=== PATIENT | male | born 1935 | race Caucasian/White ===

== ENCOUNTER 2016-07-09 12:51 | Inpatient (IN) ==
--- NOTE | 2016-07-09 13:01 | Emergency Department Note ---
Disposition Clinical Impression: Hypokalemia, Metabolic encephalopathy, Renal insufficiency, Dehydration Disposition: Admitted As Inpatient Condition: Fair Time of Disposition: 14:24 Altered Mental Status HPI - General Chief Complaint: ED Altered Mental Status Stated Complaint: AMS Time Seen by Provider: 07/09/16 12:59 Source: patient, family (), EMS Mode of arrival: EMS Limitations: altered mental status Nursing Notes Reviewed: Yes Vital Signs Reviewed: Yes - History of Present Illness HPI Narrative: 80-year-old male history of orthostatic hypotension, end-stage renal disease on daily peritoneal dialysis presents to the ED via EMS for confusion and weakness. He is a poor historian and history is obtained by and daughter. Patient has reportedly been increasingly more weak over the past several days with confusion. Example was given, earlier today while laying in his bed he yelled out "get me out of this truck". Reportedly has been coughing with more sputum production. Denies any fever, chills, weight changes, chest pain, shortness of breath, abdominal pain. He continues to make some urine, last was 2 days ago. He has been bedridden over the past 2 months. He was last hospitalized in February from a fall. He gets nightly peritoneal dialysis assisted by his currently 7.5 L at night and an additional 2.5 during the afternoon. Prior to this week it was decreased from 10 L at night and 2.5 during the afternoon due to possible dehydration and withdrawing too much fluid. Dr. Luther is his mental health coordinator from [facility] and has frequent house visits. Last house visit 3 weeks ago. His nurse comes in every 2 weeks is is scheduled to come this upcoming Monday. He gets physical therapy but lately has been unable to participate. complaint: confusion, weakness - Related Data Home Medications Medication Instructions Recorded Confirmed Allopurinol [Zyloprim 100 MG] 100 mg PO QAM 07/09/16 07/09/16 Aspirin Enteric Coated [Aspirin EC] 81 mg PO QPM 07/09/16 07/09/16 Cinacalcet HCl [Sensipar] 90 mg PO BID 07/09/16 07/09/16 Droxidopa [Northera] 300 mg PO TID 07/09/16 07/09/16 Fludrocortisone Acetate [Florinef] 0.1 mg PO BID 07/09/16 07/09/16 Loratadine [Claritin] 10 mg PO DAILY 07/09/16 07/09/16 Midodrine HCl 10 mg PO QID 07/09/16 07/09/16 Multivitamin [Multi-Day Vitamins] 1 each PO QPM 07/09/16 07/09/16 Polyethylene Glycol 3350 17 gm PO QAM 07/09/16 07/09/16 [Smoothlax] Sennosides/Docusate Sodium [Senna 1 each PO QPM 07/09/16 07/09/16 Plus] Sevelamer [Renvela] 800 mg PO TIDWM 07/09/16 07/09/16 Tamsulosin [Flomax] 0.4 mg PO QPM 07/09/16 07/09/16 Allergies Allergy/AdvReac Type Severity Reaction Status Date / Time No Known Allergies Allergy Verified 07/09/16 13:04 All systems ED: reviewed and negative except as stated. Constitutional: Reports: weakness. Denies: fever, chills ENT ED: Denies: congestion Cardiovascular: Denies: chest pain Respiratory: Reports: cough. Denies: dyspnea, wheezes Gastrointestinal: Denies: abdominal pain, nausea, vomiting, diarrhea Genitourinary: Denies: urgency, dysuria Musculoskeletal: Denies: back pain, neck pain Integumentary: Denies: rash, abrasion Neurological: Denies: headache Past Medical History - Past Medical History Attestation: Yes The following information was validated with the patient. Source: patient, obtained from family Physical Exam - General Limitations: altered mental status General appearance: in no apparent distress, other (lucid) - Head Head exam: atraumatic, normocephalic, normal inspection - Eye Eye exam: Present: normal appearance, PERRL, EOMI. Absent: scleral icterus - ENT ENT exam: normal exam, normal oropharynx, mucous membranes dry - Neck Neck exam: Present: normal inspection, full ROM, trachea midline. Absent: tenderness - Chest Chest inspection: Present: normal inspection, symmetric chest wall rise - Respiratory Respiratory exam: Present: normal lung sounds bilaterally. Absent: respiratory distress, wheezes - Cardiovascular Cardiovascular exam: Present: regular rate, normal rhythm, normal heart sounds. Absent: systolic murmur, diastolic murmur - Abdominal Exam Abdominal exam: Present: soft, Non-Tender, normal bowel sounds, other ( Peritoneal dialysis catheter and left lower quadrant, no surrounding erythema, induration or fluctuance). Absent: tenderness, distention, guarding, rebound, rigidity Course Course Narrative: 80-year-old male history of atrial fibrillation in end-stage renal disease on peritoneal dialysis presents the ED for altered mental status and generalized weakness. Denies any fevers at home. Denies any falls. He has been bedbound for 2 months. Appears in no apparent distress. He is overall weak appearing. He is alert and oriented person place and time. Also membranes are dry. Clinically he appears dehydrated. Heart is irregularly irregular. Lungs are clear to auscultation bilaterally. Abdomen is soft nontender nondistended. His dialysis site does not appear infected no erythema or induration. Moves all 4 extremities without difficulty. No focal neural deficits. Sepsis workup initiated. CT head and CXR ordered. 500 mL bolus ordered. - Reevaluation(s) Reevaluation #1: Hemoglobin is stable at 8.7. Potassium is low at 2, Magnesium is normal. Creatinine 7.8 elevated from prior several months ago. Clinically appears dehydrated. EKG shows atrial fibrillation with Q waves in anteroseptal leads consistent to prior EKG performed 02/20/2012. His troponin is elevated up to 1.17. He does not endorse any chest pain. Likely demand ischemia. Will replete his potassium with 40 mEq PO and 40 mEq potassium rider IV. Time: 14:01 Reevaluation #2: Chest x-ray does not reveal any pulmonary process to suggest infection, findings likely is due to atelectasis from low inspiratory effort. CT of the head does not reveal any intracranial abnormality. Finding of bilateral mastoiditis on CT of the head. Clinically he does not have mastoiditis as he does not have any tenderness along the mastoid or fevers. Will admit patient for hypokalemia, metabolic encephalopathy, renal insufficiency, dehydration. Time: 14:45 - Consultations Consultation #1: Spoke with on-call hospitalist ester Hernandez to admit for metabolic encephalopathy, hypokalemia, renal insufficiency, dehydration. No further orders at this time Time: 14:23 Vital Signs Temperature 97.4 F L 07/09/16 12:57 Pulse Rate 87 07/09/16 12:57 Respiratory Rate 16 07/09/16 12:57 Blood Pressure 122/60 07/09/16 12:57 O2 Sat by Pulse Oximetry 95 07/09/16 12:57 Temperature 97.4 F L 07/09/16 12:57 Pulse Rate 103 07/09/16 14:34 Respiratory Rate 18 07/09/16 14:58 Blood Pressure 121/57 07/09/16 14:58 O2 Sat by Pulse Oximetry 96 07/09/16 14:34 Oxygen Delivery Oxygen Delivery Room Air Altered Mental Status - Medical Records Medical records reviewed: Yes I reviewed the patient's medical records. - Lab Data Lab results reviewed: Yes I reviewed the patient's lab results. Result diagrams: 07/09/16 13:19 07/09/16 13:19 Lab Results 07/09/16 07/09/16 07/09/16 Range/Units 13:19 13:19 13:19 WBC 10.4 (4.3-11.1) K/mcL RBC 2.79 L (4.19-5.50) M/mcL Hgb 8.7 L (12.9-16.9) g/dL Hct 25.6 L (37.5-50.1) % MCV 91.8 (83.0-100.0) fL MCH 31.2 (28.0-33.3) pg MCHC 34.0 (31.6-35.5) g/dL RDW 15.4 H (11.5-14.5) % Plt Count 337 (140-400) K/mcL MPV 9.6 (9.4-12.4) fL Immature Gran % 0.8 (0-4) % Seg Neutrophils % 72.1 % Lymphocytes % 14.6 % Monocytes % 9.6 % Eosinophils % 2.4 % Basophils % 0.5 % Neutrophils # 7.5 (1.6-8.9) K/mcL Lymphocytes # 1.5 (0.6-4.6) K/mcL Monocytes # 1.0 (0.0-1.3) K/mcL Eosinophils # 0.3 (0.0-0.6) K/mcL Basophils # 0.1 (0.0-0.2) K/mcL Immature Plt Fraction 2.3 (1.1-6.1) % PT 12.0 (9.4-12.1) Seconds INR 1.1 APTT 24.5 L (26.0-36.0) Seconds Sodium 132 L (136-145) mEq/L Potassium 2.0 L* (3.5-4.5) mEq/L Chloride 90 L (98-109) mEq/L Carbon Dioxide 28 (19-29) mEq/L BUN 43 H (8-26) mg/dL Creatinine 7.85 H (0.72-1.25) mg/dL Est GFR ( Amer) 8 L (> 60) Est GFR (Non-Af Amer) 7 L (> 60) BUN/Creatinine Ratio 5 L (6-26) Glucose 115 H (70-99) mg/dL Calculated Osmolality 286 (280-300) Lactic Acid (0.5-2.2) mmol/L Calcium 11.8 H (8.6-10.8) mg/dL Phosphorus 5.2 H (2.3-4.7) mg/dL Magnesium 1.8 (1.6-2.6) mg/dL Total Bilirubin 0.4 (0.2-1.2) mg/dL Direct Bilirubin 0.2 (0.0-0.5) mg/dL Indirect Bilirubin 0.2 (0.0-1.2) mg/dL AST 16 (5-34) Units/L ALT 16 (0-55) Units/L Alkaline Phosphatase 110 (38-126) Units/L Ammonia (18-72) mcmol/L Troponin I (0-0.03) ng/mL B-Natriuretic Peptide (0-100) pg/mL Serum Total Protein 5.3 L (6.0-8.3) g/dL Albumin 2.0 L (3.5-5.0) g/dL Globulin 3.3 (2.4-3.5) g/dL Albumin/Globulin Ratio 0.6 L (1.1-2.2) Urine Color (Yellow) Urine Clarity (Clear) Urine pH (5.0-8.0) pH Units Ur Specific [place] (1.010-1.025) Urine Protein (Neg-Trace) mg/dL Urine Glucose (UA) (Normal) mg/dL Urine Ketones (Negative) mg/dL Urine Blood (Negative) Urine Nitrite (Negative) Urine Bilirubin (Negative) Urine Urobilinogen (Normal) mg/dL Ur Leukocyte Esterase (Negative) Urine Microscopic RBC (0-3) per hpf Urine Microscopic WBC (0-3) per hpf Ur Squamous Epith Cells (None-Few) per lpf Urine Bacteria (None-Few) per hpf Hyaline Casts Urine Yeast Ur Culture Indicated? (NO) 07/09/16 07/09/16 07/09/16 Range/Units 13:19 13:19 13:19 WBC (4.3-11.1) K/mcL RBC (4.19-5.50) M/mcL Hgb (12.9-16.9) g/dL Hct (37.5-50.1) % MCV (83.0-100.0) fL MCH (28.0-33.3) pg MCHC (31.6-35.5) g/dL RDW (11.5-14.5) % Plt Count (140-400) K/mcL MPV (9.4-12.4) fL Immature Gran % (0-4) % Seg Neutrophils % % Lymphocytes % % Monocytes % % Eosinophils % % Basophils % % Neutrophils # (1.6-8.9) K/mcL Lymphocytes # (0.6-4.6) K/mcL Monocytes # (0.0-1.3) K/mcL Eosinophils # (0.0-0.6) K/mcL Basophils # (0.0-0.2) K/mcL Immature Plt Fraction (1.1-6.1) % PT (9.4-12.1) Seconds INR APTT (26.0-36.0) Seconds Sodium (136-145) mEq/L Potassium (3.5-4.5) mEq/L Chloride (98-109) mEq/L Carbon Dioxide (19-29) mEq/L BUN (8-26) mg/dL Creatinine (0.72-1.25) mg/dL Est GFR ( Amer) (> 60) Est GFR (Non-Af Amer) (> 60) BUN/Creatinine Ratio (6-26) Glucose (70-99) mg/dL Calculated Osmolality (280-300) Lactic Acid 1.4 (0.5-2.2) mmol/L Calcium (8.6-10.8) mg/dL Phosphorus (2.3-4.7) mg/dL Magnesium (1.6-2.6) mg/dL Total Bilirubin (0.2-1.2) mg/dL Direct Bilirubin (0.0-0.5) mg/dL Indirect Bilirubin (0.0-1.2) mg/dL AST (5-34) Units/L ALT (0-55) Units/L Alkaline Phosphatase (38-126) Units/L Ammonia (18-72) mcmol/L Troponin I 1.17 H* (0-0.03) ng/mL B-Natriuretic Peptide 373 H (0-100) pg/mL Serum Total Protein (6.0-8.3) g/dL Albumin (3.5-5.0) g/dL Globulin (2.4-3.5) g/dL Albumin/Globulin Ratio (1.1-2.2) Urine Color (Yellow) Urine Clarity (Clear) Urine pH (5.0-8.0) pH Units Ur Specific [place] (1.010-1.025) Urine Protein (Neg-Trace) mg/dL Urine Glucose (UA) (Normal) mg/dL Urine Ketones (Negative) mg/dL Urine Blood (Negative) Urine Nitrite (Negative) Urine Bilirubin (Negative) Urine Urobilinogen (Normal) mg/dL Ur Leukocyte Esterase (Negative) Urine Microscopic RBC (0-3) per hpf Urine Microscopic WBC (0-3) per hpf Ur Squamous Epith Cells (None-Few) per lpf Urine Bacteria (None-Few) per hpf Hyaline Casts Urine Yeast Ur Culture Indicated? (NO) 07/09/16 07/09/16 Range/Units 13:19 14:00 WBC (4.3-11.1) K/mcL RBC (4.19-5.50) M/mcL Hgb (12.9-16.9) g/dL Hct (37.5-50.1) % MCV (83.0-100.0) fL MCH (28.0-33.3) pg MCHC (31.6-35.5) g/dL RDW (11.5-14.5) % Plt Count (140-400) K/mcL MPV (9.4-12.4) fL Immature Gran % (0-4) % Seg Neutrophils % % Lymphocytes % % Monocytes % % Eosinophils % % Basophils % % Neutrophils # (1.6-8.9) K/mcL Lymphocytes # (0.6-4.6) K/mcL Monocytes # (0.0-1.3) K/mcL Eosinophils # (0.0-0.6) K/mcL Basophils # (0.0-0.2) K/mcL Immature Plt Fraction (1.1-6.1) % PT (9.4-12.1) Seconds INR APTT (26.0-36.0) Seconds Sodium (136-145) mEq/L Potassium (3.5-4.5) mEq/L Chloride (98-109) mEq/L Carbon Dioxide (19-29) mEq/L BUN (8-26) mg/dL Creatinine (0.72-1.25) mg/dL Est GFR ( Amer) (> 60) Est GFR (Non-Af Amer) (> 60) BUN/Creatinine Ratio (6-26) Glucose (70-99) mg/dL Calculated Osmolality (280-300) Lactic Acid (0.5-2.2) mmol/L Calcium (8.6-10.8) mg/dL Phosphorus (2.3-4.7) mg/dL Magnesium (1.6-2.6) mg/dL Total Bilirubin (0.2-1.2) mg/dL Direct Bilirubin (0.0-0.5) mg/dL Indirect Bilirubin (0.0-1.2) mg/dL AST (5-34) Units/L ALT (0-55) Units/L Alkaline Phosphatase (38-126) Units/L Ammonia 15 L (18-72) mcmol/L Troponin I (0-0.03) ng/mL B-Natriuretic Peptide (0-100) pg/mL Serum Total Protein (6.0-8.3) g/dL Albumin (3.5-5.0) g/dL Globulin (2.4-3.5) g/dL Albumin/Globulin Ratio (1.1-2.2) Urine Color Red A (Yellow) Urine Clarity Cloudy A (Clear) Urine pH 5.5 (5.0-8.0) pH Units Ur Specific [place] 1.021 (1.010-1.025) Urine Protein 30 H (Neg-Trace) mg/dL Urine Glucose (UA) Normal (Normal) mg/dL Urine Ketones Negative (Negative) mg/dL Urine Blood Negative (Negative) Urine Nitrite Negative (Negative) Urine Bilirubin Small H (Negative) Urine Urobilinogen Normal (Normal) mg/dL Ur Leukocyte Esterase Moderate H (Negative) Urine Microscopic RBC 0-3 (0-3) per hpf Urine Microscopic WBC 5-15 H (0-3) per hpf Ur Squamous Epith Cells Few (None-Few) per lpf Urine Bacteria Moderate H (None-Few) per hpf Hyaline Casts Test Not Performed Urine Yeast Test Not Performed Ur Culture Indicated? YES A (NO) - Radiology Data Radiology results reviewed: Yes I reviewed the patient's radiology results. Chest X-Ray 07/09/16 13:03 IMPRESSION: Low lung volumes with bibasilar opacities, likely atelectasis. D/ / Sun Guerra MD / Sun Guerra MD Interpreting Provider: Sun Guerra MD Head CT 07/09/16 13:04 IMPRESSION: 1. No acute intracranial abnormality. 2. Diffuse cerebral atrophy with chronic small vessel ischemic disease. 3. Bilateral mastoiditis. D/ / Renaldo Saxena MD / Renaldo Saxena MD Interpreting Provider: Renaldo Saxena MD - EKG Data EKG attestation: Yes I reviewed and interpreted this EKG. EKG results narrative: EKG performed 1342 atrial fibrillation 77 bpm, Q waves seen in the inferior and anteroseptal leads. No ST elevations or depressions, no T-wave inversions. Compared to old EKG performed 02/20/2012 shows consistent findings his bradycardia 49 bpm with AV block Q waves are consistent.. No acute ischemic changes. TPA Checklist - LKW: 3-4.5 hrs Add. Contraindications Patient/family understanding: The patient/family members have been counseled and understood the risk, benefit , and alternatives of treatment. Critical Care Time Critical Care Time: Yes Total Critical Care Time: 30 Attestation: The patient presented generally weak. He was markedly hypokalemic requiring parenteral supplementation and admission to a telemetry unit Attestation Statement - Attestation Attestation: I examined this patient and my medical decision-making was reviewed with the CERTIFIED PEDORTHOTIST/PA/Advanced Practice Nurse/Resident Physician. I agree with the documented findings, disposition and treatment plan as described except to the extent set forth below. Face to face time provided Patient presents with generalized weakness over the past several days. He presents via EMS from home. He has a history of peritoneal dialysis. He appears dehydrated on exam. He denies localized pain. He is alert and lucid appears generally weak
[2016-07-09] MEDS ORDERED: 0.9 % Sodium Chloride 500 ML IVC ONE (13:16)
[2016-07-09 13:31] LABS: Basophils # 0.1 K/mcL (0.0-0.2); Basophils % 0.5 %; Eosinophils # 0.3 K/mcL (0.0-0.6); Eosinophils % 2.4 %; Hematocrit 25.6 % (37.5-50.1); Hemoglobin 8.7 g/dL (12.9-16.9); Immature Granulocytes % 0.8 % (0-4); Immature Platelets 2.3 % (1.1-6.1); Lymphocytes # 1.5 K/mcL (0.6-4.6); Lymphocytes % 14.6 %; Mean Corpuscular Hemoglobin 31.2 pg (28.0-33.3); Mean Corpuscular Volume 91.8 fL (83.0-100.0); Mean Platelet Volume 9.6 fL (9.4-12.4); Monocytes % 9.6 %; Neutrophils # 7.5 K/mcL (1.6-8.9); Platelet Count 337 K/mcL (140-400); Red Blood Count 2.79 M/mcL (4.19-5.50); Red Cell Distribution Width 15.4 % (11.5-14.5); Segmented Neutrophils % 72.1 %
[2016-07-09 13:43] LABS: INR 1.1
[2016-07-09 13:44] LABS: Albumin/Globulin Ratio 0.6 (1.1-2.2); Bilirubin,Direct 0.2 mg/dL (0.0-0.5); Bilirubin,Indirect 0.2 mg/dL (0.0-1.2); Bilirubin,Total 0.4 mg/dL (0.2-1.2); Calcium 11.8 mg/dL (8.6-10.8); Globulin 3.3 g/dL (2.4-3.5); Magnesium 1.8 mg/dL (1.6-2.6); Phosphorous 5.2 mg/dL (2.3-4.7); Total Protein 5.3 g/dL (6.0-8.3)
[2016-07-09 13:46] LABS: Activated Partial Thrombo Time 24.5 Seconds (26.0-36.0)
[2016-07-09] MEDS ORDERED: Potassium Chloride 40 MEQ, Lidocaine 1% 2 ML in D5% in Water 500 ML IVPB ONE (13:54)
[2016-07-09 14:25] LABS: Bilirubin,Urine Small (Negative); Blood,Urine Negative (Negative); Clarity,Urine Cloudy (Clear); Color,Urine Red (Yellow); Glucose,Urine (UA) Normal (Normal); Ketones,Urine Negative (Negative); Leukocyte Esterase,Urine Moderate (Negative); Nitrite,Urine Negative (Negative); PH,Urine 5.5 pH Units (5.0-8.0); Protein,Urine 30 mg/dL (Neg-Trace); Specific Gravity,Urine 1.021 (1.010-1.025); Urobilinogen,Urine Normal (Normal)
[2016-07-09 14:38] LABS: Squamous Epithelial Cell,Urine Few per lpf (None-Few)
[2016-07-09 14:42] LABS: RBC,Urine 0-3 per hpf (0-3)
[2016-07-09 14:43] LABS: Bacteria,Urine Moderate per hpf (None-Few)
[2016-07-09] MEDS ORDERED: Naloxone 0.4 MG/ML INJ IVP PRN (18:54)
[2016-07-09] MEDS ORDERED: Acetaminophen 325 MG TABLET PO PRN (18:54)
[2016-07-09] MEDS ORDERED: 0.9 % Sodium Chloride 1,000 ML IVC SCH (19:00)
[2016-07-09] MEDS ORDERED: Potassium Effervescent 25 MEQ TABLET.EFF GTUBE ONE (19:40)
--- NOTE | 2016-07-09 19:43 | Internal Med History&Physical ---
Date of Encounter: 07/09/16 Time of Encounter: 17:00 Assessment and Plan (1) Hypokalemia Current visit: Yes Status: Acute 1 potassium is 2.0 on presentation. No arrhythmias noted. Continuous cardiac monitoring. 2 oral potassium as well as K riders 40 mEq 3 continue to monitor potassium level (2) Dehydration Current visit: Yes Status: Acute 1 patient has been receiving peritoneal dialysis increasing confusion tongue is fairrowed mucous membranes are tacky BUN 43. Patient given IV fluids 2 monitor replace electrolytes 3. Intake and output (3) End stage chronic kidney disease Current visit: Yes Status: Acute 1 receiving peritoneal dialysis. Consulted Dr. Perez who will manage 2 monitor intake and output 3 avoid nephrotoxins (4) UTI (urinary tract infection) Current visit: Yes Status: Acute 1 patient has been expressing increasing confusion. moderate bacteria and leukocyte esterase. We will obtain urine culture as well as blood cultures 2. Rocephin adjust to sensitivity Qualifiers: Urinary tract infection type: acute cystitis Hematuria presence: without hematuria Qualified Code(s): N30.00 - Acute cystitis without hematuria (5) Metabolic encephalopathy Current visit: Yes Status: Acute 1 patient has been experiencing increase in confusion. CT of head with no acute abnormalities will obtain blood cultures as well as urine cultures to rule out infectious process patient is dehydrated continue with IV fluids and monitoring place electrolytes avoid sedating medications (6) DVT prophylaxis Current visit: Yes Status: Acute SCDs Internal Medicine - H&P: HPI Chief complaint: weakness Admitted From: Emergency Dept Plans for Post Hospital Care: Home History of present illness: Mr. Mueller is a 80 year old male past medical history of atrial fibrillation orthostatic hypertension COPD end-stage renal disease on daily peritoneal dialysis. The patient is confused information obtained from who is at bedside and medical records. The patient has been increasingly weak and confused over the past few days. He has a history of being bedridden and is receiving peritoneal dialysis assisted by his is currently receiving 7.5 L at night and initial 2.5 during the afternoon . He is being followed by Dr. Alonzo molder vacuum from [facility] makes frequent house visits as well as a nurse that comes in every 2 weeks. He normally gets physical therapy but has not lately since he is unable to participate. The patient has become increasingly weaker and more confused since change in his dialysate. He has not been experiencing any fevers chills nausea vomiting diarrhea chest pain or shortness of breath. He does have a cough withsputum production which she states is clear. He was brought to the ER for the above complaints. Currently her records patient's lab work revealed potassium of 2 cranial 7.85 BUN 43 magnesium is 1.8 troponin 1.17 BNP 373 TIBC 10.4 hemoglobin 8.7. Chest x-ray revealed some atelectasis urine did show leuk esterase. CT of head no acute intracranial abdominal disease. EKG with atrial fibrillation. Patient did appear dehydrated and weak he has been admitted for further workup and evaluation. Presently patient is alert and oriented to name and place he follows simple commands. Nursing staff reports the patient failed bedside swallow. Repeated bedside swallow patient experienced coughing and sputtering. We will make patient nothing by mouth will be seen by speech therapy in a.m. Did speak to Dr. Perez concerning peritoneal dialysis will place order. Patient is receiving K rider, given oral potassium Past Med Surg Social Fam HX - Past Medical History Medical history: hypertension, renal disease Psychiatric history: no psych history - Social History Smoking Status: Former smoker Smokeless Tobacco Status: No Alcohol use: none Drug use: none Internal Medicine - H&P: Meds Allopurinol [Zyloprim 100 MG] 100 mg PO QAM 07/09/16 [History] Aspirin Enteric Coated [Aspirin EC] 81 mg PO QPM 07/09/16 [History] Cinacalcet HCl [Sensipar] 90 mg PO BID 07/09/16 [History] Droxidopa [Northera] 300 mg PO TID 07/09/16 [History] Fludrocortisone Acetate [Florinef] 0.1 mg PO BID 07/09/16 [History] Loratadine [Claritin] 10 mg PO DAILY 07/09/16 [History] Midodrine HCl 10 mg PO QID 07/09/16 [History] Multivitamin [Multi-Day Vitamins] 1 each PO QPM 07/09/16 [History] Polyethylene Glycol 3350 [Smoothlax] 17 gm PO QAM 07/09/16 [History] Sennosides/Docusate Sodium [Senna Plus] 1 each PO QPM 07/09/16 [History] Sevelamer [Renvela] 800 mg PO TIDWM 07/09/16 [History] Tamsulosin [Flomax] 0.4 mg PO QPM 07/09/16 [History] Allergies No Known Allergies Allergy (Verified 07/09/16 13:04) ROS unobtainable: due to mental status All Systems PM: A 10-system review of systems was performed and is negative for pertinent findings except as documented above in the HPI. - Constitutional Vitals: Temp Pulse Resp BP Pulse Ox 98.6 F 97 14 128/53 99 07/09/16 15:00 07/09/16 15:00 07/09/16 15:00 07/09/16 15:00 07/09/16 17:12 General appearance: Present: A&O X 2, no acute distress - Head Head exam: Present: atraumatic, normocephalic - Neck Neck exam general surgery: Present: supple, trachea midline. Absent: lymphadenopathy - Respiratory Respiratory exam: Present: CTAB. Absent: accessory muscle use, rales, rhonchi, wheezes - Cardiovascular Cardiovascular exam: Present: irregular rhythm, +S1, +S2. Absent: diastolic murmur, gallop, rubs, systolic murmur - GI/Abdominal GI/Abdominal exam: Present: normal bowel sounds, soft, no peritoneal signs. Absent: distended, tenderness - Extremities Exam Extremities exam: Present: warm, radial pulses palpable and symetrical. Absent : calf tenderness, cyanotic, pedal edema - Neurological Exam Neurological exam: Present: CN II-XII intact, no focal deficits. Absent: pronater drift, facial droop, speech deficit - Skin Skin exam: Present: dry, intact Internal Med - H&P Results - Labs CBC & Chem 7: 07/09/16 13:19 07/09/16 13:19 - EKG Data Prior EKG available for review: yes When compared to previous EKG: there is no significant change EKG comments: 07/09/16 20:02 afib - Diagnostic Studies Other Images Additional comments: Chest X-Ray 07/09/16 13:03 IMPRESSION: Low lung volumes with bibasilar opacities, likely atelectasis. D/ / Sun Guerra MD / Sun Guerra MD Interpreting Provider: Sun Guerra MD Head CT 07/09/16 13:04 IMPRESSION: 1. No acute intracranial abnormality. 2. Diffuse cerebral atrophy with chronic small vessel ischemic disease. 3. Bilateral mastoiditis. D/ / Renaldo Saxena MD / Renaldo Saxena MD Interpreting Provider: Renaldo Saxena MD
[2016-07-09] MEDS ORDERED: Potassium Effervescent 25 MEQ TABLET.EFF PO ONE (19:52)
[2016-07-09 20:10] LABS: Magnesium 1.6 mg/dL (1.6-2.6)
[2016-07-09 20:18] LABS: Potassium 2.4 mEq/L (3.5-4.5)
[2016-07-09] MEDS ORDERED: Magnesium Sulfate 2 GM in D5% in Water 100 ML IVPB ONE (20:21)
[2016-07-09] MEDS ORDERED: *HR* Heparin 5,000 UNIT/ML VIAL IVP ONE (20:55)
[2016-07-09] MEDS ORDERED: *HR* Heparin 5,000 UNIT/ML VIAL IVP PRN ×2 (20:55)
--- NOTE | 2016-07-09 20:55 | Event Note ---
Date of Encounter: 07/09/16 Time of Encounter: 20:53 Patient has been experiencing runs of V. tach. Repeated troponin potassium like stat troponin trending downward to 1.01 potassium 2.49-1.6. Replaced my next continue with potassium replacement. EKG revealed atrial fibrillation. Did speak with Dr. Burkett who agreed with treatment and suggested adding heparin drip. We will initiate heparin drip and continue to monitor electrolytes closely
[2016-07-09] MEDS ORDERED: Perit. Dialysis with Dex 1.5 % 2,000 ML PERITONEAL SCH (21:00)
[2016-07-09] MEDS: Heparin 25,000 UNIT/500 ML D5W 25,000 UNIT/500 ML MLS IVC SCH (22:04)
[2016-07-09] MEDS: Perit. Dialysis with Dex 1.5 % 2,000 ML PERITONEAL SCH (22:58)
[2016-07-10 02:27] LABS: Basophils % 0.3 %; Eosinophils # 0.2 K/mcL (0.0-0.6); Eosinophils % 2.6 %; Hematocrit 22.6 % (37.5-50.1); Hemoglobin 7.7 g/dL (12.9-16.9); Immature Granulocytes % 0.9 % (0-4); Lymphocytes # 1.5 K/mcL (0.6-4.6); Mean Corpuscular HGB Conc 34.1 g/dL (31.6-35.5); Mean Corpuscular Hemoglobin 31.2 pg (28.0-33.3); Mean Corpuscular Volume 91.5 fL (83.0-100.0); Monocytes # 0.7 K/mcL (0.0-1.3); Monocytes % 8.1 %; Neutrophils # 6.4 K/mcL (1.6-8.9); Platelet Count 296 K/mcL (140-400); Red Blood Count 2.47 M/mcL (4.19-5.50); Red Cell Distribution Width 15.5 % (11.5-14.5); Segmented Neutrophils % 71.1 %
[2016-07-10 02:31] LABS: INR 1.2; Prothrombin Time 12.9 Seconds (9.4-12.1)
[2016-07-10 02:34] LABS: Potassium 2.6 mEq/L (3.5-4.5)
[2016-07-10 02:35] LABS: Activated Partial Thrombo Time 101.4 Seconds (26.0-36.0)
[2016-07-10] MEDS: Perit. Dialysis with Dex 1.5 % 2,000 ML PERITONEAL SCH ×4 (04:17→21:52)
[2016-07-10 07:51] LABS: Calcium 11.4 mg/dL (8.6-10.8); Phosphorous 4.5 mg/dL (2.3-4.7)
[2016-07-10 07:57] LABS: Potassium 2.5 mEq/L (3.5-4.5)
--- NOTE | 2016-07-10 08:52 | Nephrology Consult Note ---
Date of Encounter: 07/10/16 Time of Encounter: 08:10 Assessment and Plan (1) End stage chronic kidney disease Current Visit: Yes Status: Acute ESRD on PD, orders given for daily four exchanges. Hypokalemia slowly improving with repletion, Hgb 7.7 will start on Aranesp and obtain iron studies. Ca++ 11.8 , will get PTH. Continue Sensipar, avoid calcium and Vitamin D supplements. Continue to monitor. History of Present Illness - Reason for Consult end stage renal disease - History of Present Illness Mr. Mueller is a 80 year old male with ESRD on home PD administered per and followed by home visiting Ct Mri Technologist from [place]. Patient previously seen in our PD clinic. Mr. Mueller presented to ER via EMS for confusion and weakness. Other PMH-A fib, hypertension. 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 Information obtained from prior notes. Patient had progressive weakness and confusion over past several days with increased cough and sputum production. He denied fever, chills, chest pain or shortness of breath. He denies abdominal pain and still makes some urine. Recently PD was changed due to concern for possible dehydration. Labs in ER noted hypokalemic 2.0, now 2.6 with ongoing replacement, troponin 1.17 thought to be demand ischemia, serial troponins being followed. Ca 11.8, Hgb 7.7. CXR no acute process, atalectasis due to low inspiratory effort. CT of head no intracranial abnormality, incidental finding bilateral mastoiditis without any tenderness along mastoids or fever. Event note for recurrent Vtach, on Heparin drip, potassium replacement in progress. Currently alert, pleasant confused conversation. Past Med Surg Social Fam HX - Past Medical History Medical history: hypertension, renal disease Psychiatric history: no psych history - Social History Smoking Status: Former smoker Smokeless Tobacco Status: No Alcohol use: none Drug use: none Medications and Allergies Allopurinol [Zyloprim 100 MG] 100 mg PO QAM 07/09/16 [History] Aspirin Enteric Coated [Aspirin EC] 81 mg PO QPM 07/09/16 [History] Cinacalcet HCl [Sensipar] 90 mg PO BID 07/09/16 [History] Droxidopa [Northera] 300 mg PO TID 07/09/16 [History] Epoetin Aram [Epogen] 2,000 unit IJ 07/09/16 [History] Fludrocortisone Acetate [Florinef] 0.1 mg PO BID 07/09/16 [History] Loratadine [Claritin] 10 mg PO DAILY 07/09/16 [History] Midodrine HCl 10 mg PO QID 07/09/16 [History] Multivitamin [Multi-Day Vitamins] 1 each PO QPM 07/09/16 [History] Polyethylene Glycol 3350 [Smoothlax] 17 gm PO QAM 07/09/16 [History] Sennosides/Docusate Sodium [Senna Plus] 1 each PO QPM 07/09/16 [History] Sevelamer [Renvela] 800 mg PO TIDWM 07/09/16 [History] Tamsulosin [Flomax] 0.4 mg PO QPM 07/09/16 [History] Allergies No Known Allergies Allergy (Verified 07/09/16 13:04) Review of Systems ROS unobtainable: due to mental status All Systems: reviewed and no additional remarkable complaints except as stated Exam - Vital Signs Vital signs: Initial Vital Signs Temp Pulse Resp BP Pulse Ox 97.4 F L 87 16 122/60 95 07/09/16 12:57 07/09/16 12:57 07/09/16 12:57 07/09/16 12:57 07/09/16 12:57 Vital Signs - Last 8 Hours Temp Pulse Resp BP Pulse Ox 07/10/16 08:21 98.6 F 101 15 138/70 97 07/10/16 03:51 98.0 F 91 18 143/67 94 Intake and Output 07/09/16 07/10/16 07/10/16 23:59 07:59 15:59 Other: Total Peritoneal Dialysis -300 -200 Output Stool Size Moderate Stool Consistency formed Stool Characteristics Pasty Stool Color Brown Yellow Cipriano Colored # Voids 0 # Bowel Movements 1 Weight 72.5 kg 72 kg Patient Weight 07/10/16 23:59 Weight 72 kg - General Appearance General appearance: well-developed, well-nourished, appears started age EENT: mucous membranes moist Neck: no JVD, no carotid bruit Respiratory: clear Additional Comments: diminished Cardiology: no edema, irregular rhythm Gastrointestinal: normoactive bowel sounds, no tenderness, no guarding Additional Comments: PD catheter LUQ Integumentary: no rash, warm and dry Neurologic: confused Psychiatric: cooperative Results - Lab Results 07/10/16 00:59 07/10/16 06:53 Most recent lab results Calcium 11.4 mg/dL (8.6-10.8) H 07/10/16 06:53 Phosphorus 4.5 mg/dL (2.3-4.7) 07/10/16 06:53 Magnesium 2.0 mg/dL (1.6-2.6) 07/10/16 00:59 Consult Discharge Plan - Plan Referrals: Kory Gómez MD [Primary Care Provider] - (Web requested 07-09-16)
[2016-07-10] MEDS ORDERED: Darbepoetin 100 MCG/0.5 ML SYRINGE SQ SCH (09:15)
[2016-07-10] MEDS: Potassium Chloride Elixir 20 MEQ/15 ML UDC PO SCH ×2 (09:29→17:16)
[2016-07-10] MEDS: Loratadine 10 MG TABLET PO SCH (09:37)
--- NOTE | 2016-07-10 09:41 | Internal Med Progress Note ---
Date of Encounter: 07/10/16 Time of Encounter: 09:39 - Assessment and plan (1) Hypokalemia Current Visit: Yes Status: Acute Assessment and plan: due to peritoneal dialysis; will supplement with oral and IV potassium chloride ; continue Telemetry monitoring and recheck potassium in 6hours; high risk for complications; (2) Metabolic encephalopathy Current Visit: Yes Status: Acute Assessment and plan: likely due to metabolic etiology like electrolyte, acid-base imbalance due to ESRD; improving; (3) UTI (urinary tract infection) Current Visit: Yes Status: Acute Qualifiers: Urinary tract infection type: acute cystitis Hematuria presence: without hematuria Qualified Code(s): N30.00 - Acute cystitis without hematuria (4) Elevated troponin Current Visit: Yes Status: Acute Assessment and plan: could be related to volume overload and ESRD; continue Telemetry monitoring and serial Troponins; f/up Echocardiogram and Cardiology consult; (5) Atrial fibrillation Current Visit: Yes Status: Chronic Qualifiers: Atrial fibrillation type: persistent Qualified Code(s): I48.1 - Persistent atrial fibrillation (6) COPD (chronic obstructive pulmonary disease) Current Visit: Yes Status: Chronic Qualifiers: COPD type: unspecified COPD Qualified Code(s): J44.9 - Chronic obstructive pulmonary disease, unspecified (7) End stage chronic kidney disease Current Visit: Yes Status: Chronic Assessment and plan: Nephrology has been consulted and patient receiving his regular PD sessions; - Subjective Interval history: He reports feeling well. No chest or abdominal pain, no shortness of breath. Does report generalized weakness and poor appetite. Bedside swallow evaluation complete, patient is cleared for his regular diet with nectar thick liquids. - Constitutional Vitals: Temp Pulse Resp BP Pulse Ox 98.6 F 101 15 138/70 97 07/10/16 08:21 07/10/16 08:21 07/10/16 08:21 07/10/16 08:21 07/10/16 08:21 General appearance: Present: A&O X 2, answers questions appropriately - Respiratory Respiratory exam: Present: CTAB. Absent: accessory muscle use, rales, rhonchi, wheezes - Cardiovascular Cardiovascular exam: Present: RRR, +S1, +S2. Absent: diastolic murmur, gallop, rubs, systolic murmur - GI/Abdominal GI/Abdominal exam: Present: normal bowel sounds, soft (PD catheters in place in left abdomen, site clean), no peritoneal signs. Absent: distended, tenderness - Extremities Exam Extremities exam: Present: pedal edema (Trace), warm, radial pulses palpable and symetrical. Absent: calf tenderness, cyanotic - Neurological Exam Neurological exam: Present: CN II-XII intact, oriented X3, no focal deficits, strengths equal and symetr throughout (Diffusely decreased in bilateral lower extremities). Absent: pronater drift, facial droop, speech deficit Internal Medicine: Result - Labs CBC & Chem 7: 07/14/16 04:38 07/14/16 04:38 Labs: Short CBC 07/10/16 Range/Units 00:59 WBC 9.0 (4.3-11.1) K/mcL Hgb 7.7 L (12.9-16.9) g/dL Hct 22.6 L (37.5-50.1) % Plt Count 296 (140-400) K/mcL Neutrophils # 6.4 (1.6-8.9) K/mcL BMP 07/09/16 07/10/16 07/10/16 19:56 00:59 06:53 Sodium 133 L Potassium 2.4 L* 2.6 L 2.5 L* Chloride 94 L Carbon Dioxide 25 BUN 42 H Creatinine 7.63 H Glucose 91 Calcium 11.4 H Cardiac Enzymes 07/09/16 07/10/16 Range/Units 19:56 00:59 Troponin I 1.01 H* 0.97 H* (0-0.03) ng/mL - ABG Interpretation ABG results: PT/INR, D-dimer PT 12.9 Seconds (9.4-12.1) H 07/10/16 00:59 Consult Discharge Plan - Plan Referrals: Juan C Luna CNP [Advanced Practice Nurse] - 08/01/16 1:30 pm Kory Gómez MD [Primary Care Provider] - 07/20/16 9:40 am (Web requested )
--- NOTE | 2016-07-10 11:42 | Cardiology Consult Note ---
Date of Encounter: 07/10/16 Time of Encounter: 11:38 Assessment and Plan (1) Elevated troponin Current Visit: Yes Status: Acute Troponins 1.17, 1.01, 0.97--downtrending. Elevated in setting of ESRD on peritoneal dialysis. Demand ischemic vs. NSTEMI. Pt denies any chest pain or worsening dyspnea. Telemetry reviewed--no VT noted. Appears to be intermittent slow idioventricular rhythm. Prior echo 02/2016 EF 60-65%. Negative stress 02/2016 at [facility]. Recheck echo to evaluate EF. Heparin gtt for 24-48 hours. Would recommend stopping after 24 hours since HGB is 7.7 (8.7 yesterday). Given advanced age, bedridden, anemia, and reportedly asymptomatic, recommend medical management for now. Further recommendations once echo results. ASA, Statin, BB. (2) Atrial fibrillation Current Visit: Yes Status: Chronic Known diagnosis of A-Fib. Add low dose BB. 24 hour tele AVG HR 94, A-Fib with idioventricular rhythm. K 2.5 today--as low as 2.0 on admission. Recommend aggressive repletion. Mag 2.0. CHADSVASC 3 (Age, HTN). Poor candidate for chronic anticoagulation given his high falls risk. reports he has orthostatic hypotension and recently mostly bedridden. Recommend ASA only. Qualifiers: Atrial fibrillation type: persistent Qualified Code(s): I48.1 - Persistent atrial fibrillation (3) End stage chronic kidney disease Current Visit: Yes Status: Acute On peritoneal dialysis. Nephrology consulted and managing. (4) Hypokalemia Current Visit: Yes Status: Acute K 2.0 on presentation. 2.5 today. Replace. (5) Idioventricular rhythm Current Visit: Yes Status: Acute Idioventricular rhythm noted on tele intermittently--slow with HR <100 during episodes. Not VT. Recommend electrolyte replacement and added BB. Continue to monitor tele. Check echo. Discussion w patient/family: The assessment and plan as outlined above was discussed with the patient and/or family members who expressed understanding and agreement. All questions were answered. Thank you for involving us in the care of your patient. Please call with any questions. I will discuss all the above with Dr. Burkett and make changes as necessary. History of Present Illness Consult date: 07/10/16 Requesting physician: Louann Roberson Consult reason: Elevated troponin, VT Chief complaint: weakness, confusion History of present illness: Mr. Mueller is a 80 year old male with past medical history of atrial fibrillation, orthostatic hypertension, COPD, end-stage renal disease on daily peritoneal dialysis. and daughter are at bedside. They report his dialysis fluid was increased 3 weeks ago and they started noticing increased weakness at that time. In the past 3-5 days they noticed worsening confusion, so they brought him in. Pt is currently alert and oriented x 3. He denies chest pain or worsening dyspnea, although states she has noticed he had some dyspnea. Troponins found to be 1.17, 1.01, 0.97. Reported runs of VT, but on telemetry appears to be idioventricular rhythm, not true VT. reports pt had LHC in remote past without intervention. Known A-Fib, on ASA only. Recent CV testing: Echo 01/06/16: EF 65%, moderate LVH, moderate diastolic dysfunction, trivial- small pericardial effusion without evidence of tamponade. Stress 02/22/16 at [facility] negative. Records in [facility]. Echo 02/2016 at [facility] EF 60-65%. Past Med Surg Social Fam HX - Past Medical History Medical history: atrial fibrillation, hypertension, renal disease Psychiatric history: no psych history - Social History Smoking Status: Former smoker Smokeless Tobacco Status: No Alcohol use: none Drug use: none Medications and Allergies Allopurinol [Zyloprim 100 MG] 100 mg PO QAM 07/09/16 [History] Aspirin Enteric Coated [Aspirin EC] 81 mg PO QPM 07/09/16 [History] Cinacalcet HCl [Sensipar] 90 mg PO BID 07/09/16 [History] Droxidopa [Northera] 300 mg PO TID 07/09/16 [History] Epoetin Aram [Epogen] 2,000 unit IJ 07/09/16 [History] Fludrocortisone Acetate [Florinef] 0.1 mg PO BID 07/09/16 [History] Loratadine [Claritin] 10 mg PO DAILY 07/09/16 [History] Midodrine HCl 10 mg PO QID 07/09/16 [History] Multivitamin [Multi-Day Vitamins] 1 each PO QPM 07/09/16 [History] Polyethylene Glycol 3350 [Smoothlax] 17 gm PO QAM 07/09/16 [History] Sennosides/Docusate Sodium [Senna Plus] 1 each PO QPM 07/09/16 [History] Sevelamer [Renvela] 800 mg PO TIDWM 07/09/16 [History] Tamsulosin [Flomax] 0.4 mg PO QPM 07/09/16 [History] Allergies No Known Allergies Allergy (Verified 07/09/16 13:04) All Systems Review: A 10-system review of systems was performed and is negative for pertinent findings except as documented above in the HPI. - Constitutional Constitutional: fatigue, weakness - Cardiovascular Cardiovascular: as per HPI Physical Examination Vital Signs, Last 4 Hours Temp Pulse Resp BP Pulse Ox 07/10/16 08:21 98.6 F 101 15 138/70 97 Vital Signs Temp Pulse Resp BP Pulse Ox 07/10/16 08:21 98.6 F 101 15 138/70 97 07/10/16 03:51 98.0 F 91 18 143/67 94 07/09/16 23:31 98.6 F 100 18 148/62 94 07/09/16 19:55 97.7 F 91 18 120/40 97 07/09/16 17:12 99 07/09/16 15:00 98.6 F 97 14 128/53 99 07/09/16 14:58 18 121/57 07/09/16 14:34 103 18 121/57 96 07/09/16 13:45 99 16 142/57 100 07/09/16 13:22 85 16 120/63 98 07/09/16 13:05 80 16 122/60 100 07/09/16 12:57 97.4 F L 87 16 122/60 95 Intake and Output 07/09/16 07/10/16 07/10/16 23:59 07:59 15:59 Intake Total 0 / 0 318 / 318 Output Total 0 / 0 Balance 0 / 0 318 / 318 Intake: IV Fluids 318 / 318 Heparin 25,000 UNIT/500 218 / 218 ML D5W 25,000 unit In 500 ml @ 12 UNIT/KG/HR 18.8 mls/hr IVC .Q24H [facility] Rx#: [id number] Potassium Chloride 10 mEq 100 / 100 /100mL 10 meq In 100 ml @ 100 mls/hr IVPB Q1H [facility] Rx#:[id number] Oral 0 / 0 Output: Urine 0 / 0 Other: Meal NPO Percent of Meal Consumed 0% Total Peritoneal Dialysis -300 -200 -200 Output Stool Size Moderate Stool Consistency formed Stool Characteristics Pasty Stool Color Brown Yellow Cipriano Colored # Voids 0 # Bowel Movements 1 Weight 72.5 kg 72 kg 72.4 kg Blood Glucose* 103 Patient Weight 07/10/16 23:59 Weight 72.4 kg General: Conversant, No Apparent Distress HEENT: Atraumatic, Normocephaly, Mucus Membranes Moist Neck: No JVD, Normal carotid pulses Cardiac: Other (irregularly irregular) Lungs: Other (diminished) Neuro: Alert and responsive Abdomen: Soft, Non-Tender Skin: No rashes noted on visualized skin Musculoskeletal: No Chest Wall Tenderness Extremities: No Clubbing, No Cyanosis, No Edema, Normal Pulses Results 07/10/16 00:59 07/10/16 06:53 Lab Results 07/09/16 07/09/16 07/10/16 19:56 19:56 00:59 WBC Hgb Hct Plt Count INR 1.2 APTT 101.4 H D Sodium Potassium 2.4 L* Chloride Carbon Dioxide BUN Creatinine Glucose Calcium Magnesium 1.6 Troponin I 1.01 H* 07/10/16 07/10/16 07/10/16 00:59 00:59 00:59 WBC 9.0 Hgb 7.7 L Hct 22.6 L Plt Count 296 INR APTT Sodium Potassium 2.6 L Chloride Carbon Dioxide BUN Creatinine Glucose Calcium Magnesium 2.0 Troponin I 0.97 H* 07/10/16 07/10/16 06:53 06:53 WBC Hgb Hct Plt Count INR APTT 58.1 H Sodium 133 L Potassium 2.5 L* Chloride 94 L Carbon Dioxide 25 BUN 42 H Creatinine 7.63 H Glucose 91 Calcium 11.4 H Magnesium Troponin I Short CBC 07/10/16 07/09/16 Range/Units 00:59 13:19 WBC 9.0 10.4 (4.3-11.1) K/mcL Hgb 7.7 L 8.7 L (12.9-16.9) g/dL Hct 22.6 L 25.6 L (37.5-50.1) % Plt Count 296 337 (140-400) K/mcL Neutrophils # 6.4 7.5 (1.6-8.9) K/mcL BMP 07/10/16 07/10/16 07/09/16 Range/Units 06:53 00:59 19:56 Sodium 133 L (136-145) mEq/L Potassium 2.5 L* 2.6 L 2.4 L* (3.5-4.5) mEq/L Chloride 94 L (98-109) mEq/L Carbon Dioxide 25 (19-29) mEq/L BUN 42 H (8-26) mg/dL Creatinine 7.63 H (0.72-1.25) mg/dL Glucose 91 (70-99) mg/dL Calcium 11.4 H (8.6-10.8) mg/dL 07/09/16 Range/Units 13:19 Sodium 132 L (136-145) mEq/L Potassium 2.0 L* (3.5-4.5) mEq/L Chloride 90 L (98-109) mEq/L Carbon Dioxide 28 (19-29) mEq/L BUN 43 H (8-26) mg/dL Creatinine 7.85 H (0.72-1.25) mg/dL Glucose 115 H (70-99) mg/dL Calcium 11.8 H (8.6-10.8) mg/dL Cardiac Enzymes 07/10/16 07/09/16 07/09/16 Range/Units 00:59 19:56 13:19 Troponin I 0.97 H* 1.01 H* 1.17 H* (0-0.03) ng/mL Liver Function 07/09/16 Range/Units 13:19 Total Bilirubin 0.4 (0.2-1.2) mg/dL Direct Bilirubin 0.2 (0.0-0.5) mg/dL AST 16 (5-34) Units/L ALT 16 (0-55) Units/L Alkaline Phosphatase 110 (38-126) Units/L Albumin 2.0 L (3.5-5.0) g/dL Urine 07/09/16 Range/Units 14:00 Urine Color Red A (Yellow) Urine Clarity Cloudy A (Clear) Urine pH 5.5 (5.0-8.0) pH Units Ur Specific [place] 1.021 (1.010-1.025) Urine Protein 30 H (Neg-Trace) mg/dL Urine Glucose (UA) Normal (Normal) mg/dL Impressions Chest X-Ray 07/09/16 13:03 IMPRESSION: Low lung volumes with bibasilar opacities, likely atelectasis. D/ / Sun Guerra MD / Sun Guerra MD Interpreting Provider: Sun Guerra MD Head CT 07/09/16 13:04 IMPRESSION: 1. No acute intracranial abnormality. 2. Diffuse cerebral atrophy with chronic small vessel ischemic disease. 3. Bilateral mastoiditis. D/ / Renaldo Saxena MD / Renaldo Saxena MD Interpreting Provider: Renaldo Saxena MD Active Medications Acetaminophen (Tylenol) 650 mg PO Q6HR PRN PRN Reason: Mild Pain (1-3) Stop: 01/08/17 18:55 Allopurinol (Zyloprim) 100 mg PO QAM [facility] Stop: 01/09/17 09:01 Last Admin: 07/10/16 09:37 Dose: 100 mg Aspirin (Aspirin Ec) 81 mg PO QPM [facility] Stop: 01/09/17 18:01 Cinacalcet (Sensipar) 90 mg PO BID [facility] Stop: 01/08/17 21:01 Last Admin: 07/10/16 09:37 Dose: 90 mg Darbepoetin Aram (Aranesp) 100 mcg SQ QWEEK [facility] PRN Reason: Protocol Stop: 01/09/17 09:16 Last Admin: 07/10/16 09:53 Dose: 100 mcg Fludrocortisone Acetate (Florinef) 0.1 mg PO BID [facility] Stop: 01/08/17 21:01 Last Admin: 07/10/16 09:37 Dose: 0.1 mg Heparin Sodium (Porcine) (Heparin) 4,000 unit IVP Q6HR PRN PRN Reason: SEE COMMENTS Stop: 01/08/17 20:56 Heparin Sodium (Porcine) (Heparin) 2,000 unit IVP Q6H PRN PRN Reason: SEE COMMENTS Stop: 01/08/17 20:56 Ceftriaxone Sodium 1,000 mg/ (Dextrose) 100 mls @ 200 mls/hr IVPB Q24H [facility] Stop: 01/08/17 19:01 Last Admin: 07/09/16 20:44 Dose: 200 mls/hr Peritoneal Dialysis Solution (Dianeal With 1.5% Dextrose) 2,000 mls @ 2,000 mls /hr PERITONEAL Q6H [facility] Stop: 01/08/17 21:01 Last Admin: 07/10/16 09:39 Dose: 2,000 mls/hr Heparin Sodium/Dextrose (Heparin 25,000 Unit/500 Ml D5w) 25,000 unit in 500 mls @ 18.8 mls/hr IVC .Q24H [facility]; 12 UNIT/KG/HR PRN Reason: Protocol Stop: 01/08/17 21:01 Last Titration: 07/10/16 09:43 Dose: 14 unit/kg/hr, 21.934 mls/hr Loratadine (Claritin) 10 mg PO DAILY [facility] PRN Reason: Protocol Stop: 01/09/17 09:01 Last Admin: 07/10/16 09:37 Dose: 10 mg Multivitamins/Calcium (Thera M Plus) 1 tab PO QPM [facility] Stop: 01/09/17 18:01 Naloxone HCl (Narcan) 0.4 mg IVP Q2MIN PRN PRN Reason: Opioid Reversal Stop: 01/08/17 18:55 Potassium Chloride (Potassium Chloride) 20 meq PO BID [facility] Stop: 01/09/17 09:01 Last Admin: 07/10/16 09:38 Dose: Not Given Potassium Chloride (Potassium Chloride) 60 meq PO Q4H [facility] Stop: 07/10/16 12:16 Last Admin: 07/10/16 09:29 Dose: 60 meq Senna/Docusate Sodium (Senna Plus) 1 each PO QPM [facility] PRN Reason: Protocol Stop: 01/09/17 18:01 Sevelamer HCl (Renvela) 800 mg PO TIDWM [facility] Stop: 01/09/17 08:01 Last Admin: 07/10/16 09:29 Dose: Not Given Tamsulosin HCl (Flomax) 0.4 mg PO QPM [facility] PRN Reason: Protocol Stop: 01/09/17 18:01 - Imaging and Cardiology Chest Xray: report reviewed Stress Test: report reviewed Echo: report reviewed - EKG Interpretation EKG results cardiology: personally reviewed (A-Fib), other (24 hour tele AVG HR 94, A-Fib, idioventricular rhythm) Consult Discharge Plan - Plan Referrals: Kory Gómez MD [Primary Care Provider] - (Web requested 07-09-16)
[2016-07-10 14:40] LABS: % Iron Saturation 14 % (20-55); Iron 26 mcg/dL (65-175); Transferrin 134 mg/dL (174-364)
[2016-07-10] MEDS: Sennosides/Docusate Sodium TABLET PO SCH (17:20)
[2016-07-10] MEDS: Aspirin Enteric Coated 81 MG Tablet PO SCH (17:20)
[2016-07-10] MEDS ORDERED: Multivit/Ca/Min/Fe/FA 1 TAB TABLET PO SCH (18:00)
[2016-07-10] MEDS: Heparin 25,000 UNIT/500 ML D5W 25,000 UNIT/500 ML MLS IVC SCH (21:53)
[2016-07-11 00:16] LABS: Basophils # 0.1 K/mcL (0.0-0.2); Basophils % 0.6 %; Eosinophils # 0.3 K/mcL (0.0-0.6); Eosinophils % 3.4 %; Hematocrit 22.4 % (37.5-50.1); Hemoglobin 7.6 g/dL (12.9-16.9); Immature Granulocytes % 0.9 % (0-4); Lymphocytes # 1.8 K/mcL (0.6-4.6); Lymphocytes % 19.1 %; Mean Corpuscular HGB Conc 33.9 g/dL (31.6-35.5); Mean Corpuscular Hemoglobin 31.4 pg (28.0-33.3); Mean Corpuscular Volume 92.6 fL (83.0-100.0); Monocytes # 0.9 K/mcL (0.0-1.3); Monocytes % 9.5 %; Neutrophils # 6.2 K/mcL (1.6-8.9); Platelet Count 278 K/mcL (140-400); Red Blood Count 2.42 M/mcL (4.19-5.50); Red Cell Distribution Width 15.7 % (11.5-14.5); Segmented Neutrophils % 66.5 %
[2016-07-11 00:27] LABS: Calcium 11.1 mg/dL (8.6-10.8); Potassium 2.9 mEq/L (3.5-4.5)
[2016-07-11] MEDS: Perit. Dialysis with Dex 1.5 % 2,000 ML PERITONEAL SCH ×4 (03:24→13:00)
--- NOTE | 2016-07-11 08:26 | Nephrology Progress Note ---
Date of Encounter: 07/11/16 Time of Encounter: 08:24 - Assessment and Plan (1) End stage chronic kidney disease Current Visit: Yes Status: Acute The patient will continue on peritoneal dialysis with 1.5% dialysate and 1.5 calcium. He will continue on Sensipar. He will require additional potassium supplementation. He agrees to transfusion increase his hemoglobin and possibly assist with his blood pressure. He will also receive parenteral iron. (2) Anemia in chronic kidney disease (CKD) Current Visit: Yes Status: Acute (3) Chronic orthostatic hypotension Current Visit: Yes Status: Acute (4) Hypokalemia Current Visit: Yes Status: Acute (5) Atrial fibrillation Current Visit: Yes Status: Chronic Qualifiers: Atrial fibrillation type: persistent Qualified Code(s): I48.1 - Persistent atrial fibrillation Subjective Interval history: Patient continues to complain of weakness and inability to sit up for prolonged periods of time. He is unable to stand because of lightheadedness dizziness and previous episodes of syncope. He appears to be intermittently confused. He remains hypercalcemic. His hemoglobin remains low. He was recently started on Aranesp. He also has iron deficiency. PTH is elevated despite being on Sensipar. Objective - Vital Signs Vital signs: Vital Signs Temp Pulse Resp BP Pulse Ox 07/11/16 07:50 97.6 F 77 18 124/62 98 07/11/16 03:46 97.7 F 82 16 119/53 96 07/11/16 00:21 97.5 F L 76 16 137/71 99 07/10/16 19:48 97.2 F L 71 16 138/71 98 07/10/16 16:05 98.2 F 92 16 151/61 99 Intake and Output 07/10/16 07/11/16 07/11/16 23:59 07:59 15:59 Intake Total 622 / 622 40 / 40 Balance 622 / 622 40 / 40 Intake: IV Fluids 382 / 382 40 / 40 Heparin 25,000 UNIT/500 282 / 282 40 / 40 ML D5W 25,000 unit In 500 ml @ 12 UNIT/KG/HR 18.8 mls/hr IVC .Q24H [facility] Rx#: [id number] Rocephin 1,000 MG In 100 / 100 Dextrose 5% (Minibag+) 100 ML 100 ML @ 200 mls/ hr IVPB Q24H [facility] Rx#: [id number] Oral 240 / 240 Other: Meal Dinner Percent of Meal Consumed 20% Total Peritoneal Dialysis -1000 0 Output Stool Size Smear Stool Color [place] # Bowel Movements 1 Weight 72.1 kg 72.2 kg Patient Weight 07/11/16 23:59 Weight 72.2 kg - General Appearance Exam: Patient is alert but appears intermittently confused. He appears weak and chronically ill. Heart regular rate and rhythm. Lungs sounds otherwise clear. Abdomen is benign. Peritoneal catheter exit site shows no obvious signs of infection. There is no peripheral swelling. - Lab 07/11/16 00:08 07/11/16 00:08 Most recent lab results Calcium 11.1 mg/dL (8.6-10.8) H 07/11/16 00:08 Phosphorus 4.5 mg/dL (2.3-4.7) 07/10/16 06:53 Magnesium 2.0 mg/dL (1.6-2.6) 07/10/16 00:59 Consult Discharge Plan - Plan Referrals: Kory Gómez MD [Primary Care Provider] - (Web requested 07-09-16)
--- NOTE | 2016-07-11 08:28 | ECHO - Doppler Report ---
Echocardiogram Name: Raymond Mueller Date of Study: 07/10/2016 Date: 1935 Ht: 74.0 in Medical Record#: [id number] Age: 80 Wt: 159.0 lb Gender: Male BSA: 1.97 Order #: [id number] Location: [facility] Room #: 2A33 Reading Physician: Jeffrey Burkett DO, HE, ALLEN PEÑA Ingredient Handler: Pam Griffiths RDCS Ordering Physician: Louann Roberson CNP Primary Physician: Kory Gómez MD Indications: ELEVATED TROPONIN Impressions: LVEF 60-65%. Normal LV chamber size and function. Mild concentric left ventricular hypertrophy. Mild left ventricular diastolic dysfunction. Atypical septal motion consistent with bundle branch block. Normal right ventricular structure and function. Mild pulmonary hypertension. Estimated RVSP is 37 mmHg. No significant valvular disease. Left Ventricular Wall Motion: Rest Echo Findings All wall segments showed normal motion. Findings: Study Quality * Technically adequate exam. ECG Findings * Sinus rhythm with BBB. Left Ventricle * LVEF 60-65%. * Normal LV chamber size and function. * Mild concentric left ventricular hypertrophy. * Mild left ventricular diastolic dysfunction. * Atypical septal motion consistent with bundle branch block. Right Ventricle * Normal right ventricular structure and function. Left Atrium * Mildly dilated left atrium. Right Atrium * Mildly dilated right atrium. Interatrial Septum * Interatrial septum not well evaluated. Aortic Valve * Trileaflet aortic valve. * Mildly sclerotic aortic valve leaflets. * No aortic regurgitation. * No aortic stenosis. Mitral Valve * Mild mitral annular calcification * Trace mitral regurgitation. * No mitral stenosis. Tricuspid Valve * Normal tricuspid valve structure and function. * Trace tricuspid regurgitation. * Mild pulmonary hypertension. * Estimated RVSP is 37 mmHg. * Estimated RA pressure is 5 mmHg. Pulmonic Valve * Normal pulmonic valve structure and function. * No pulmonic regurgitation. Aorta * Normally sized aortic root. Pericardium * The pericardium appears normal. IVC * Normal IVC dimensions and inspiratory collapse. Pulmonary Artery * Normal visualized portions of the main pulmonary artery. History Hypertension Hypercholesteremia Family History of CAD 01-06-16 a Previous Echo was performed. Measurements: BP: 143/ 67 2D Normal Values RVIDd: 3.10 cm <2.7 cm IVSd: 1.30 cm 0.6 - 1.0 cm LVIDd: 4.40 cm 3.7 - 5.6 cm LVPWd: 1.30 cm 0.6 - 1.1 cm LVIDs: 3.27 cm 1.5 - 3.6 cm AO: 3.10 cm < 4.0 cm LA: 3.23 cm 2.0 - 4.0cm %FS: 25.00 cm >25 % LVOT Diam: 2.00 cm LA volume: 46 Mitral Valve Peak E:1.20 m/sec Peak A:1.72 m/sec E/A Ratio:0.7 Peak E' Lat Sukhdeep:8.58 cm/s Peak E' Med Sukhdeep:5.46 cm/s E/E' Lat Ratio:14 E/E' Med Ratio:22 Tricuspid Valve TV Regurg Peak Grad: 32.00mmHg TV Regurg Peak Sukhdeep: 2.84m/sec Updated by Jeffrey Burkett DO, HE, MARIANA, ALLEN on 07/11/2016 8:23:34 AM electronically signed on 07/11/2016 8:24:29 AM with status of Final Wall Motion Garcia: 1=Normal, 2=Hypokinesis, 3=Akinesis, 4=Dyskinesis, 5=Aneurysmal, 6=Hyperkinetic, X=Not Visualized (Blank)=Missing
[2016-07-11] MEDS ORDERED: Ferumoxytol 510 MG in 0.9 % Sodium Chloride 100 ML IVPB ONE (08:29)
--- NOTE | 2016-07-11 08:51 | Cardiology Progress Note ---
Date of Encounter: 07/11/16 Time of Encounter: 08:47 Assessment and Plan (1) Elevated troponin Current Visit: Yes Status: Acute Troponins 1.17, 1.01, 0.97--downtrending. Elevated in setting of ESRD on peritoneal dialysis. Demand ischemic vs. NSTEMI. Pt denies any chest pain or worsening dyspnea. Prior echo 02/2016 EF 60-65%. Negative stress 02/2016 at [facility]. Echo resulted from this stay--EF remains the same 60-65%, no wall motion abnormalities. Mild diastolic dysfunction. Heparin gtt for 24-48 hours. Will stop now since has been >24 hours and HGB 7.6- -stable. Given advanced age, bedridden, anemia, reportedly asymptomatic, and preserved EF with normal wall motion on echo, recommend medical management. Pt and agree to plan. ASA, Statin, BB. Cardiology will sign off. Recommend outpt follow-up in 2-3 weeks. (2) Atrial fibrillation Current Visit: Yes Status: Chronic Known diagnosis of A-Fib. Added low dose BB yesterday. 24 hour tele AVG HR 82, A-Fib. K 2.9 today--as low as 2.0 on admission. Recommend aggressive repletion. Mag 2.0. CHADSVASC 3 (Age, HTN). Poor candidate for chronic anticoagulation given his high falls risk. reports he has orthostatic hypotension and recently mostly bedridden. Recommend ASA only. Qualifiers: Atrial fibrillation type: persistent Qualified Code(s): I48.1 - Persistent atrial fibrillation (3) Hypokalemia Current Visit: Yes Status: Acute K 2.0 on presentation. 2.5 yesterday, 2.9 today. Replace. (4) Idioventricular rhythm Current Visit: Yes Status: Resolved Idioventricular rhythm noted on tele intermittently yesterday--slow with HR < 100 during episodes. Not VT. Recommend electrolyte replacement and added BB. Telemetry reviewed today over past 24 hours and no further idioventricular rhythm noted. Echo EF preserved. Discussion w patient/family: The assessment and plan as outlined above was discussed with the patient and/or family members who expressed understanding and agreement. All questions were answered. Thank you for involving us in the care of your patient. Please call with any questions. I will discuss all the above with Dr. Moran and make changes as necessary. Subjective Principal diagnosis: Elevated troponin Interval history: Pt denies chest pain or dyspnea overnight. Echo resulted--EF 60-65%, normal wall motion, mild LVH, mild diastolic dysfunction. 24 hour tele AVG HR 82, A-Fib , no VT or idioventricular rhythms noted. K 2.9. Objective Vital Signs, Last 4 Hours Temp Pulse Resp BP Pulse Ox 07/11/16 07:50 97.6 F 77 18 124/62 98 Vital Signs Temp Pulse Resp BP Pulse Ox 07/11/16 07:50 97.6 F 77 18 124/62 98 07/11/16 03:46 97.7 F 82 16 119/53 96 07/11/16 00:21 97.5 F L 76 16 137/71 99 07/10/16 19:48 97.2 F L 71 16 138/71 98 07/10/16 16:05 98.2 F 92 16 151/61 99 Intake and Output 07/10/16 07/11/16 07/11/16 23:59 07:59 15:59 Intake Total 622 / 622 40 / 40 Balance 622 / 622 40 / 40 Intake: IV Fluids 382 / 382 40 / 40 Heparin 25,000 UNIT/500 282 / 282 40 / 40 ML D5W 25,000 unit In 500 ml @ 12 UNIT/KG/HR 18.8 mls/hr IVC .Q24H [facility] Rx#: [id number] Rocephin 1,000 MG In 100 / 100 Dextrose 5% (Minibag+) 100 ML 100 ML @ 200 mls/ hr IVPB Q24H [facility] Rx#: [id number] Oral 240 / 240 Other: Meal Dinner Percent of Meal Consumed 20% Total Peritoneal Dialysis -1000 0 Output Stool Size Smear Stool Color Barrera # Bowel Movements 1 Weight 72.1 kg 72.2 kg Patient Weight 07/11/16 23:59 Weight 72.2 kg General: Conversant, No Apparent Distress HEENT: Atraumatic, Normocephaly, Mucus Membranes Moist Neck: No JVD, Normal carotid pulses Cardiac: Reg Rate and Rhythm, Normal S1 and S2, No Murmur Lungs: Other (diminished) Neuro: Alert and responsive, No focal deficits noted Abdomen: Soft, Non-Tender Skin: No rashes noted on visualized skin Musculoskeletal: No Chest Wall Tenderness Extremities: No Clubbing, No Cyanosis, No Edema, Normal Pulses Results 07/11/16 00:08 07/11/16 00:08 Lab Results 07/10/16 07/10/16 07/11/16 14:00 16:33 00:08 WBC 9.3 Hgb 7.6 L Hct 22.4 L Plt Count 278 APTT 65.5 H Sodium Potassium 3.3 L Chloride Carbon Dioxide BUN Creatinine Glucose Calcium 07/11/16 07/11/16 00:08 00:08 WBC Hgb Hct Plt Count APTT 64.1 H Sodium 133 L Potassium 2.9 L Chloride 95 L Carbon Dioxide 28 BUN 37 H Creatinine 7.46 H Glucose 91 Calcium 11.1 H Short CBC 07/11/16 Range/Units 00:08 WBC 9.3 (4.3-11.1) K/mcL Hgb 7.6 L (12.9-16.9) g/dL Hct 22.4 L (37.5-50.1) % Plt Count 278 (140-400) K/mcL Neutrophils # 6.2 (1.6-8.9) K/mcL BMP 07/11/16 07/10/16 Range/Units 00:08 14:00 Sodium 133 L (136-145) mEq/L Potassium 2.9 L 3.3 L (3.5-4.5) mEq/L Chloride 95 L (98-109) mEq/L Carbon Dioxide 28 (19-29) mEq/L BUN 37 H (8-26) mg/dL Creatinine 7.46 H (0.72-1.25) mg/dL Glucose 91 (70-99) mg/dL Calcium 11.1 H (8.6-10.8) mg/dL Active Medications Acetaminophen (Tylenol) 650 mg PO Q6HR PRN PRN Reason: Mild Pain (1-3) Stop: 01/08/17 18:55 Allopurinol (Zyloprim) 100 mg PO QAM [facility] Stop: 01/09/17 09:01 Last Admin: 07/10/16 09:37 Dose: 100 mg Aspirin (Aspirin Ec) 81 mg PO QPM [facility] Stop: 01/09/17 18:01 Last Admin: 07/10/16 17:20 Dose: 81 mg Atorvastatin Calcium (Lipitor) 40 mg PO HS [facility] Stop: 01/09/17 21:01 Last Admin: 07/10/16 21:53 Dose: 40 mg Cinacalcet (Sensipar) 90 mg PO BID [facility] Stop: 01/08/17 21:01 Last Admin: 07/10/16 21:51 Dose: 90 mg Darbepoetin Aram (Aranesp) 100 mcg SQ QWEEK [facility] PRN Reason: Protocol Stop: 01/09/17 09:16 Last Admin: 07/10/16 09:53 Dose: 100 mcg Fludrocortisone Acetate (Florinef) 0.1 mg PO BID [facility] Stop: 01/08/17 21:01 Last Admin: 07/10/16 21:52 Dose: 0.1 mg Heparin Sodium (Porcine) (Heparin) 4,000 unit IVP Q6HR PRN PRN Reason: SEE COMMENTS Stop: 01/08/17 20:56 Heparin Sodium (Porcine) (Heparin) 2,000 unit IVP Q6H PRN PRN Reason: SEE COMMENTS Stop: 01/08/17 20:56 Ceftriaxone Sodium 1,000 mg/ (Dextrose) 100 mls @ 200 mls/hr IVPB Q24H [facility] Stop: 01/08/17 19:01 Last Admin: 07/10/16 17:21 Dose: 200 mls/hr Heparin Sodium/Dextrose (Heparin 25,000 Unit/500 Ml D5w) 25,000 unit in 500 mls @ 18.8 mls/hr IVC .Q24H [facility]; 12 UNIT/KG/HR PRN Reason: Protocol Stop: 01/08/17 21:01 Last Titration: 07/11/16 00:37 Dose: 14 unit/kg/hr, 21.934 mls/hr Ferumoxytol 510 mg/ Sodium (Chloride) 117 mls @ 468 mls/hr IVPB ONCE ONE PRN Reason: Protocol Stop: 07/11/16 08:43 Potassium Chloride (Potassium Chloride 10 Meq/100ml) 10 meq in 100 mls @ 100 mls/hr IVPB Q1H [facility] Stop: 07/11/16 12:29 Peritoneal Dialysis Solution (Dianeal With 1.5% Dextrose) 2,000 mls @ 2,000 mls /hr PERITONEAL Q4H [facility] Stop: 01/10/17 08:31 Loratadine (Claritin) 10 mg PO DAILY [facility] PRN Reason: Protocol Stop: 01/09/17 09:01 Last Admin: 07/10/16 09:37 Dose: 10 mg Metoprolol Tartrate (Lopressor) 25 mg PO BID [facility] Stop: 01/09/17 12:01 Last Admin: 07/10/16 21:52 Dose: 25 mg Naloxone HCl (Narcan) 0.4 mg IVP Q2MIN PRN PRN Reason: Opioid Reversal Stop: 01/08/17 18:55 Potassium Chloride (Potassium Chloride) 20 meq PO BID [facility] Stop: 01/09/17 09:01 Last Admin: 07/10/16 21:52 Dose: 20 meq Senna/Docusate Sodium (Senna Plus) 1 each PO QPM [facility] PRN Reason: Protocol Stop: 01/09/17 18:01 Last Admin: 07/10/16 17:20 Dose: 1 each Sevelamer HCl (Renvela) 800 mg PO TIDWM [facility] Stop: 01/09/17 08:01 Last Admin: 07/10/16 17:20 Dose: 800 mg Tamsulosin HCl (Flomax) 0.4 mg PO QPM [facility] PRN Reason: Protocol Stop: 01/09/17 18:01 Last Admin: 07/10/16 17:20 Dose: 0.4 mg Vitamin B Complex/Vit C/Folic Acid (Renal Caps Softgel) 1 mg PO DAILY [facility] Stop: 01/10/17 09:01 - Imaging and Cardiology Echo: report reviewed - EKG Interpretation EKG results cardiology: other (24 hour tele AVG HR 82, A-Fib noted) Consult Discharge Plan - Plan Referrals: Kory Gómez MD [Primary Care Provider] - (Web requested 07-09-16)
[2016-07-11] MEDS: Loratadine 10 MG TABLET PO SCH (08:54)
--- NOTE | 2016-07-11 09:12 | Electrocardiograph Report ---
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
--- NOTE | 2016-07-11 09:21 | Electrocardiograph Report ---
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
[2016-07-11] MEDS: Renal Vitamin 1 MG CAPSULE PO SCH ×2 (10:15→12:05)
[2016-07-11] MEDS ORDERED: 0.9 % Sodium Chloride 250 ML ONE ×2 (11:17→12:01)
--- NOTE | 2016-07-11 13:03 | Internal Med Progress Note ---
Date of Encounter: 07/11/16 Time of Encounter: 13:03 - Assessment and plan (1) Hypokalemia Status: Acute Assessment and plan: related to ESRD and peritoneal dialysis. Supplement with oral and IV potassium chloride and monitor closely; Telemetry monitoring; (2) Metabolic encephalopathy Status: Acute Assessment and plan: noted to be delirious, likely due to electrolyte and acid-base abnormalities, with underlying ESRD; continue PD as tolerated and monitor closely; fall precautions; no source of infection identified at this time; (3) UTI (urinary tract infection) Status: Ruled-out Assessment and plan: UA was suggestive of UTI but urine culture grows no significant bacteria; Qualifiers: Urinary tract infection type: acute cystitis Hematuria presence: without hematuria Qualified Code(s): N30.00 - Acute cystitis without hematuria (4) Elevated troponin Status: Resolved Assessment and plan: likely due to volume overload and ESRD; Cardiology consult noted; discontinued IV Heparin drip; (5) Atrial fibrillation Status: Chronic Assessment and plan: currently rate-controlled; only on ASA due to fall risk; outpatient Cardiology f /up; Qualifiers: Atrial fibrillation type: persistent Qualified Code(s): I48.1 - Persistent atrial fibrillation (6) COPD (chronic obstructive pulmonary disease) Status: Chronic Qualifiers: COPD type: unspecified COPD Qualified Code(s): J44.9 - Chronic obstructive pulmonary disease, unspecified (7) End stage chronic kidney disease Status: Chronic Assessment and plan: Nephrology on board; receiving PD; plan to transfuse 1unit PRBC today due to b 7.6; likely anemia of chronic kidney disease; - Subjective Interval history: More confused today; able to recognize people and converse intermittently; delirious, unable to give me any history; plan of care d/w at bedside; refusing oral diet mostly; - Constitutional Vitals: Temp Pulse Resp BP Pulse Ox 97.6 F 81 14 131/59 92 07/11/16 12:44 07/11/16 12:44 07/11/16 12:44 07/11/16 12:44 07/11/16 12:44 General appearance: Present: A&O X 1 - Respiratory Respiratory exam: Present: CTAB. Absent: accessory muscle use, rales, rhonchi, wheezes - Cardiovascular Cardiovascular exam: Present: RRR, +S1, +S2. Absent: diastolic murmur, gallop, rubs, systolic murmur - GI/Abdominal GI/Abdominal exam: Present: normal bowel sounds, soft (PD catheter in place), no peritoneal signs. Absent: distended, tenderness - Extremities Exam Extremities exam: Present: full ROM, pedal edema, warm, radial pulses palpable and symetrical. Absent: calf tenderness, cyanotic Internal Medicine: Result - Labs CBC & Chem 7: 07/16/16 05:53 07/16/16 05:53 Labs: Short CBC 07/11/16 Range/Units 00:08 WBC 9.3 (4.3-11.1) K/mcL Hgb 7.6 L (12.9-16.9) g/dL Hct 22.4 L (37.5-50.1) % Plt Count 278 (140-400) K/mcL Neutrophils # 6.2 (1.6-8.9) K/mcL BMP 07/10/16 07/11/16 14:00 00:08 Sodium 133 L Potassium 3.3 L 2.9 L Chloride 95 L Carbon Dioxide 28 BUN 37 H Creatinine 7.46 H Glucose 91 Calcium 11.1 H - ABG Interpretation ABG results: PT/INR, D-dimer PT 12.9 Seconds (9.4-12.1) H 07/10/16 00:59 Consult Discharge Plan - Plan Instructions: Chronic Obstructive Pulmonary Disease (DC), Anemia (GEN) Referrals: Juan C Luna CNP [Advanced Practice Nurse] - 08/01/16 1:30 pm Kory Gómez MD [Primary Care Provider] - 07/20/16 9:40 am (Web requested ) Prescriptions: Atorvastatin [Lipitor] 40 mg PO HS #30 tablet Metoprolol [Lopressor] 25 mg PO BID 60 Days Mirtazapine [Remeron] 15 mg PO HS 30 Days Potassium Chloride 20 meq PO BID 30 Days
[2016-07-11] MEDS: HEPARIN PERITONEAL SCH ×2 (17:10→21:08)
[2016-07-11] MEDS: *HR* Heparin 5,000 UNIT/ML VIAL SQ SCH (17:10)
[2016-07-11] MEDS: Sennosides/Docusate Sodium TABLET PO SCH (17:10)
[2016-07-11] MEDS: DEX PERITONEAL SCH ×2 (17:10→21:08)
[2016-07-11] MEDS: Aspirin Enteric Coated 81 MG Tablet PO SCH (17:10)
[2016-07-11] MEDS: PERIT DIALYSIS PERITONEAL SCH ×2 (17:10→21:08)
[2016-07-12] MEDS: PERIT DIALYSIS PERITONEAL SCH ×6 (01:03→21:09)
[2016-07-12] MEDS: DEX PERITONEAL SCH ×6 (01:03→21:09)
[2016-07-12] MEDS: HEPARIN PERITONEAL SCH ×6 (01:03→21:09)
[2016-07-12 04:41] LABS: Basophils % 0.5 %; Eosinophils # 0.3 K/mcL (0.0-0.6); Eosinophils % 3.5 %; Hematocrit 28.3 % (37.5-50.1); Immature Granulocytes % 0.9 % (0-4); Lymphocytes # 1.6 K/mcL (0.6-4.6); Lymphocytes % 18.2 %; Mean Corpuscular HGB Conc 33.2 g/dL (31.6-35.5); Mean Corpuscular Hemoglobin 30.2 pg (28.0-33.3); Mean Platelet Volume 9.6 fL (9.4-12.4); Monocytes # 0.9 K/mcL (0.0-1.3); Monocytes % 10.9 %; Neutrophils # 5.7 K/mcL (1.6-8.9); Platelet Count 303 K/mcL (140-400); Red Blood Count 3.11 M/mcL (4.19-5.50); Red Cell Distribution Width 17.9 % (11.5-14.5)
[2016-07-12 04:47] LABS: Hemoglobin 9.4 g/dL (12.9-16.9)
[2016-07-12 05:11] LABS: Calcium 11.7 mg/dL (8.6-10.8); Potassium 3.5 mEq/L (3.5-4.5)
[2016-07-12] MEDS: *HR* Heparin 5,000 UNIT/ML VIAL SQ SCH ×2 (05:32→17:15)
[2016-07-12] MEDS: Renal Vitamin 1 MG CAPSULE PO SCH (09:11)
[2016-07-12] MEDS: Loratadine 10 MG TABLET PO SCH (09:11)
--- NOTE | 2016-07-12 13:22 | Nephrology Progress Note ---
Date of Encounter: 07/12/16 Time of Encounter: 13:20 - Assessment and Plan (1) End stage chronic kidney disease Current Visit: Yes Status: Acute The patient will continue on peritoneal dialysis with 1.5% dialysate and 1.5 calcium. The patient's exchanges were increased to 5 daily. I am going to start him on calcitonin to see if that helps with his hypercalcemia. He also may benefit from being placed on Megace to see if it helps stimulate his appetite. (2) Anemia in chronic kidney disease (CKD) Current Visit: Yes Status: Acute (3) Chronic orthostatic hypotension Current Visit: Yes Status: Acute (4) Hypokalemia Current Visit: Yes Status: Acute (5) Atrial fibrillation Current Visit: Yes Status: Chronic Qualifiers: Atrial fibrillation type: persistent Qualified Code(s): I48.1 - Persistent atrial fibrillation Subjective Principal diagnosis: Elevated troponin Interval history: The patient seems more confused today. His potassium is improved. Calcium remains elevated. Number of his dialysate exchanges were increased yesterday. The patient's reports it is a very poor appetite and is not eating much at all. Objective - Vital Signs Vital signs: Vital Signs Temp Pulse Resp BP Pulse Ox 07/12/16 10:51 97.9 F 89 16 133/70 94 07/12/16 09:21 93 07/12/16 06:59 98.3 F 83 18 125/67 93 07/12/16 05:04 98.1 F 80 18 157/66 95 07/11/16 23:37 98.1 F 80 18 144/76 96 07/11/16 18:44 98.0 F 80 18 155/66 95 07/11/16 15:07 98.0 F 73 16 145/68 94 07/11/16 14:50 97.9 F 16 151/64 100 Intake and Output 07/11/16 07/12/16 07/12/16 23:59 07:59 15:59 Intake Total 370 / 370 Balance 370 / 370 Intake: Oral 370 / 370 Other: Meal Breakfast Percent of Meal Consumed 75% Total Peritoneal Dialysis 0 -1000 -500 Output Weight 72.2 kg 72 kg 72.15 kg Patient Weight 07/12/16 23:59 Weight 72.15 kg - General Appearance Exam: Patient is resting in bed. His eyes are open. He is confused. His difficult for him to carry on a normal conversation. Vital signs are stable. Lungs essentially clear to auscultation. Heart regular rate and rhythm. Abdomen is soft. Dialysis catheter site is intact. There is no abdominal tenderness nor guarding. There is no peripheral edema. - Lab 07/12/16 03:41 07/12/16 03:41 Most recent lab results Calcium 11.7 mg/dL (8.6-10.8) H 07/12/16 03:41 Phosphorus 4.5 mg/dL (2.3-4.7) 07/10/16 06:53 Magnesium 2.0 mg/dL (1.6-2.6) 07/10/16 00:59 Consult Discharge Plan - Plan Referrals: Kory Gómez MD [Primary Care Provider] - 07/20/16 9:40 am (Web requested )
--- NOTE | 2016-07-12 16:25 | Internal Med Progress Note ---
<Raymond Coronado - Last Filed: 07/12/16 16:22> Date of Encounter: 07/12/16 Time of Encounter: 10:25 - Assessment and plan (1) Metabolic encephalopathy Current Visit: Yes Status: Acute Assessment and plan: improving. Per patient is more alert and less confused. Possibly secondary to renal disease and electrolyte abnormalities. Improving. (2) Idioventricular rhythm Current Visit: Yes Status: Acute Assessment and plan: resolved. (3) Failure to thrive Current Visit: Yes Status: Acute (4) Elevated troponin Current Visit: Yes Status: Acute Assessment and plan: In the setting of ESRD and acute illness. trending down. appreciate cardiologies input. (5) End stage renal disease Current Visit: Yes Status: Acute Assessment and plan: on peritoneal dialysis. Mgmt per Nephrology (6) Weight loss Current Visit: Yes Status: Acute Assessment and plan: possibly from recurrent hospitalizations. can be worked up further as outpatient. will consult nutrition. (7) Muscular deconditioning Current Visit: Yes Status: Acute Assessment and plan: Pt/OT (8) Secondary hyperparathyroidism Current Visit: Yes Status: Acute Assessment and plan: on calcitonin and phosphate binders. (9) Anemia Current Visit: Yes Status: Acute Assessment and plan: chronic. From ESRD. on Darbopoetin. (10) DVT prophylaxis Current Visit: Yes Status: Acute Assessment and plan: on SQ heparin. - Subjective Interval history: No major events overnight. Patient is mildly confused this morning is a poor historian about his medical history. He denies any aches or pains this morning. Denies any difficulty breathing. There is no further complaints at this time. His is currently present in the room. She does express concern that he seems to be eating very poorly and also has been losing weight over the past 2 months. She states that he appears to be declining over the past few months. - Constitutional Vitals: Temp Pulse Resp BP Pulse Ox 97.9 F 89 16 133/70 94 07/12/16 10:51 07/12/16 10:51 07/12/16 10:51 07/12/16 10:51 07/12/16 10:51 Exam: General: This is a frail-appearing 80-year-old male who is alert and orientated to person and situation only. Lying in bed appears to be comfortable and in no acute distress this time. HEENT: Head is normocephalic and atraumatic. Anicteric sclera, moist mucous membranes, neck supple without mass or thyromegaly. Heart: Regular rate and rhythm without murmurs rubs or gallops. Lungs: CTAP. Abdomen: Soft, nondistended, bowel sounds positive in all 4 quadrants. The peritoneal dialysis catheter is well dressed and clean. No tenderness to palpation of the abdomen. Musculoskeletal: This is some diffuse muscle atrophy but otherwise no gross deformity is noted. Extremities: There is no clubbing, cyanosis or edema. Integument: No rash or lesion noted. Internal Medicine: Result - Labs CBC & Chem 7: 07/12/16 03:41 07/12/16 03:41 Labs: Short CBC 07/12/16 Range/Units 03:41 WBC 8.6 (4.3-11.1) K/mcL Hgb 9.4 L D (12.9-16.9) g/dL Hct 28.3 L (37.5-50.1) % Plt Count 303 (140-400) K/mcL Neutrophils # 5.7 (1.6-8.9) K/mcL BMP 07/12/16 03:41 Sodium 136 Potassium 3.5 Chloride 98 Carbon Dioxide 25 BUN 34 H Creatinine 7.19 H Glucose 90 Calcium 11.7 H - ABG Interpretation ABG results: PT/INR, D-dimer PT 12.9 Seconds (9.4-12.1) H 07/10/16 00:59 Consult Discharge Plan - Plan Referrals: Kory Gómez MD [Primary Care Provider] - 07/20/16 9:40 am (Web requested ) <Karson Baldwin - Last Filed: 07/12/16 17:06> Date of Encounter: 07/12/16 - Constitutional Vitals: Temp Pulse Resp BP Pulse Ox 97.8 F 76 16 146/76 98 07/12/16 16:37 07/12/16 16:37 07/12/16 16:37 07/12/16 16:37 07/12/16 16:37 Internal Medicine: Result - Labs CBC & Chem 7: 07/12/16 03:41 07/12/16 03:41 Labs: Short CBC 07/12/16 Range/Units 03:41 WBC 8.6 (4.3-11.1) K/mcL Hgb 9.4 L D (12.9-16.9) g/dL Hct 28.3 L (37.5-50.1) % Plt Count 303 (140-400) K/mcL Neutrophils # 5.7 (1.6-8.9) K/mcL BMP 07/12/16 03:41 Sodium 136 Potassium 3.5 Chloride 98 Carbon Dioxide 25 BUN 34 H Creatinine 7.19 H Glucose 90 Calcium 11.7 H - ABG Interpretation ABG results: PT/INR, D-dimer PT 12.9 Seconds (9.4-12.1) H 07/10/16 00:59 - Attending Attestation I examined this patient and my medical decision-making was reviewed with the SENIOR STAFF CONSULTANT/PA/Advanced Practice Nurse/Resident Physician. I agree with the documented findings, disposition and treatment plan as described except to the extent set forth below. Nutrition eval, PT/OT eval, might benefit from inpatient rehab.
[2016-07-12] MEDS: Sennosides/Docusate Sodium TABLET PO SCH (17:15)
[2016-07-12] MEDS: Aspirin Enteric Coated 81 MG Tablet PO SCH (17:15)
[2016-07-13] MEDS: DEX PERITONEAL SCH ×6 (01:15→22:03)
[2016-07-13] MEDS: HEPARIN PERITONEAL SCH ×6 (01:15→22:03)
[2016-07-13] MEDS: PERIT DIALYSIS PERITONEAL SCH ×6 (01:15→22:03)
[2016-07-13 04:47] LABS: Basophils # 0.1 K/mcL (0.0-0.2); Basophils % 0.7 %; Eosinophils # 0.3 K/mcL (0.0-0.6); Eosinophils % 2.8 %; Hematocrit 29.4 % (37.5-50.1); Hemoglobin 9.7 g/dL (12.9-16.9); Immature Granulocytes % 0.7 % (0-4); Lymphocytes # 1.7 K/mcL (0.6-4.6); Lymphocytes % 18.5 %; Mean Corpuscular Hemoglobin 30.3 pg (28.0-33.3); Mean Corpuscular Volume 91.9 fL (83.0-100.0); Mean Platelet Volume 9.8 fL (9.4-12.4); Monocytes % 10.8 %; Neutrophils # 6.1 K/mcL (1.6-8.9); Platelet Count 282 K/mcL (140-400); Red Cell Distribution Width 17.9 % (11.5-14.5); Segmented Neutrophils % 66.5 %
[2016-07-13 05:13] LABS: Albumin/Globulin Ratio 0.6 (1.1-2.2); Bilirubin,Total 0.3 mg/dL (0.2-1.2); Calcium 11.7 mg/dL (8.6-10.8); Magnesium 1.4 mg/dL (1.6-2.6); Potassium 3.7 mEq/L (3.5-4.5); Total Protein 4.8 g/dL (6.0-8.3)
[2016-07-13 05:20] LABS: Albumin 1.8 g/dL (3.5-5.0)
[2016-07-13] MEDS: *HR* Heparin 5,000 UNIT/ML VIAL SQ SCH ×3 (05:29→21:46)
--- NOTE | 2016-07-13 08:24 | Nephrology Progress Note ---
Date of Encounter: 07/13/16 Time of Encounter: 08:22 - Assessment and Plan (1) End stage chronic kidney disease Current Visit: Yes Status: Acute The patient will continue on peritoneal dialysis with 1.5% dialysate and 1.5 calcium. The patient's exchanges were increased to 5 daily. Patient continues on Sensipar. Calcitonin was also started yesterday. Has a clinical picture of tertiary hyperparathyroidism. He remains quite debilitated. I suspect he will require ECF placement following hospital discharge. (2) Anemia in chronic kidney disease (CKD) Current Visit: Yes Status: Acute (3) Chronic orthostatic hypotension Current Visit: Yes Status: Acute (4) Hypokalemia Current Visit: Yes Status: Acute (5) Atrial fibrillation Current Visit: Yes Status: Chronic Qualifiers: Atrial fibrillation type: persistent Qualified Code(s): I48.1 - Persistent atrial fibrillation Subjective Principal diagnosis: Elevated troponin Interval history: The patient is more alert today. Patient's reports that the patient ate better for supper last night. He also is currently eating his breakfast. Potassium is stable. Calcium remains elevated currently no improvement. He continues on peritoneal dialysis 5 exchanges per day. Objective - Vital Signs Vital signs: Vital Signs Temp Pulse Resp BP Pulse Ox 07/13/16 07:13 98.2 F 87 18 107/58 95 07/13/16 04:38 98.0 F 90 16 99/42 94 07/12/16 23:45 98.0 F 82 22 147/77 96 07/12/16 19:07 98.4 F 84 18 128/64 98 07/12/16 16:37 97.8 F 76 16 146/76 98 07/12/16 10:51 97.9 F 89 16 133/70 94 07/12/16 09:21 93 Intake and Output 07/12/16 07/13/16 07/13/16 23:59 07:59 15:59 Intake Total 200 / 200 50 / 50 Balance 200 / 200 50 / 50 Intake: Oral 200 / 200 50 / 50 Other: Meal PUDDING Total Peritoneal Dialysis 0 -500 Output Weight 72.2 kg 72.2 kg Patient Weight 07/13/16 23:59 Weight 72.2 kg - General Appearance Exam: Patient is alert. He is in no acute distress. Lung sounds otherwise clear. Heart regular rate and rhythm. Abdomen is soft and nontender. Peritoneal dialysis catheter exit site shows no sign of infection. There is no lower extremity swelling. - Lab 07/13/16 04:06 07/13/16 04:06 Most recent lab results Calcium 11.7 mg/dL (8.6-10.8) H 07/13/16 04:06 Phosphorus 5.0 mg/dL (2.3-4.7) H 07/13/16 04:06 Magnesium 1.4 mg/dL (1.6-2.6) L 07/13/16 04:06 Consult Discharge Plan - Plan Referrals: Kory Gómez MD [Primary Care Provider] - 07/20/16 9:40 am (Web requested )
[2016-07-13] MEDS: Renal Vitamin 1 MG CAPSULE PO SCH (09:56)
[2016-07-13] MEDS: Loratadine 10 MG TABLET PO SCH (09:56)
[2016-07-13] MEDS: Magnesium Oxide 400 MG TABLET PO SCH (09:56)
[2016-07-13] MEDS: Calcitonin-Salmon, Synthetic 400 UNIT/2 ML VIAL SQ SCH (10:22)
--- NOTE | 2016-07-13 14:12 | Internal Med Progress Note ---
<LavellNorma Kelsea Annabella - Last Filed: 07/13/16 17:04> Date of Encounter: 07/13/16 Time of Encounter: 14:10 - Assessment and plan (1) Metabolic encephalopathy Current Visit: Yes Status: Acute Assessment and plan: Improved today is present with patient at bedside She states that patient is almost back to baseline mentation (2) End stage renal disease Current Visit: Yes Status: Acute Assessment and plan: Continue peritoneal dialysis. Followed by nephrology (3) Elevated troponin Current Visit: Yes Status: Acute Assessment and plan: Elevated troponin the setting of ESRD and acute illness. Troponins, trending down Appreciate recommendations from cardiology (4) Weight loss Current Visit: Yes Status: Acute Assessment and plan: Patient is not eating well He states that he has no appetite Started on Megestrol yesterday by Dr. Boyer Encouraged family to continue to get patient to eat (5) Failure to thrive Current Visit: Yes Status: Acute Assessment and plan: Plan as above Qualifiers: Failure to thrive age range: in adult Qualified Code(s): R62.7 - Adult failure to thrive (6) Muscular deconditioning Current Visit: Yes Status: Acute Assessment and plan: Pt/OT (7) Idioventricular rhythm Current Visit: Yes Status: Acute Assessment and plan: resolved (8) Secondary hyperparathyroidism Current Visit: Yes Status: Acute Assessment and plan: on calcitonin and phosphate binders. (9) Anemia Current Visit: Yes Status: Acute Assessment and plan: chronic secondary to ESRD on Darbopoetin Qualifiers: Anemia type: other cause Other causes of anemia: chronic disease, other Qualified Code(s): D63.8 - Anemia in other chronic diseases classified elsewhere (10) DVT prophylaxis Current Visit: Yes Status: Acute Assessment and plan: Heparin SQ - Time Spent With Patient Greater than 35 minutes (40 minutes including time with patient and and time coordinating care) - Subjective Interval history: states that confusion is improved today. She states that patient is much improved from yesterday. He continues to have weakness. states that patient has not stood in 3 weeks due to weakness. would not allow PT to work with patient because PT wanted to stand patient up at the bedside. is upset because she states her has "orthostatic hypotension" and cannot stand. She would like PT to work with patient while he is in bed. - Constitutional Vitals: Temp Pulse Resp BP Pulse Ox 97.4 F L 82 18 118/71 98 07/13/16 11:21 07/13/16 11:21 07/13/16 11:21 07/13/16 11:21 07/13/16 11:21 General appearance: Present: A&O X 2, answers questions appropriately - Head Head exam: Present: atraumatic, normocephalic - Eye Eye exam: Present: PERRL, conjuntiva pink, sclera anicteric Pupils: Present: PERRL - Neck Neck exam general surgery: Present: supple, trachea midline - Respiratory Respiratory exam: Present: CTAB. Absent: accessory muscle use, rales, rhonchi, wheezes - Cardiovascular Cardiovascular exam: Present: RRR, +S1, +S2. Absent: diastolic murmur, gallop, rubs, systolic murmur - GI/Abdominal GI/Abdominal exam: Present: normal bowel sounds, soft. Absent: distended - Extremities Exam Extremities exam: Present: warm, radial pulses palpable and symetrical. Absent : calf tenderness, cyanotic, pedal edema - Neurological Exam Neurological exam: Present: CN II-XII intact, no focal deficits. Absent: pronater drift, facial droop, speech deficit - Skin Skin exam: Present: dry, intact Internal Medicine: Result - Labs CBC & Chem 7: 07/13/16 04:06 07/13/16 04:06 Labs: Short CBC 07/13/16 Range/Units 04:06 WBC 9.2 (4.3-11.1) K/mcL Hgb 9.7 L (12.9-16.9) g/dL Hct 29.4 L (37.5-50.1) % Plt Count 282 (140-400) K/mcL Neutrophils # 6.1 (1.6-8.9) K/mcL BMP 07/13/16 04:06 Sodium 137 Potassium 3.7 Chloride 98 Carbon Dioxide 28 BUN 28 H Creatinine 7.10 H Glucose 100 H Calcium 11.7 H Liver Function 07/13/16 Range/Units 04:06 Total Bilirubin 0.3 (0.2-1.2) mg/dL AST 17 (5-34) Units/L ALT 16 (0-55) Units/L Alkaline Phosphatase 103 (38-126) Units/L Albumin 1.8 L (3.5-5.0) g/dL - ABG Interpretation ABG results: PT/INR, D-dimer PT 12.9 Seconds (9.4-12.1) H 07/10/16 00:59 Consult Discharge Plan - Plan Referrals: Juan C Luna CNP [Advanced Practice Nurse] - 08/01/16 1:30 pm Kory Gómez MD [Primary Care Provider] - 07/20/16 9:40 am (Web requested ) <Karson Baldwin - Last Filed: 07/13/16 18:27> Date of Encounter: 07/13/16 - Constitutional Vitals: Temp Pulse Resp BP Pulse Ox 97.5 F L 87 18 145/71 97 07/13/16 16:10 07/13/16 16:10 07/13/16 16:10 07/13/16 16:10 07/13/16 16:10 Internal Medicine: Result - Labs CBC & Chem 7: 07/13/16 04:06 07/13/16 04:06 Labs: Short CBC 07/13/16 Range/Units 04:06 WBC 9.2 (4.3-11.1) K/mcL Hgb 9.7 L (12.9-16.9) g/dL Hct 29.4 L (37.5-50.1) % Plt Count 282 (140-400) K/mcL Neutrophils # 6.1 (1.6-8.9) K/mcL BMP 07/13/16 04:06 Sodium 137 Potassium 3.7 Chloride 98 Carbon Dioxide 28 BUN 28 H Creatinine 7.10 H Glucose 100 H Calcium 11.7 H Liver Function 07/13/16 Range/Units 04:06 Total Bilirubin 0.3 (0.2-1.2) mg/dL AST 17 (5-34) Units/L ALT 16 (0-55) Units/L Alkaline Phosphatase 103 (38-126) Units/L Albumin 1.8 L (3.5-5.0) g/dL - ABG Interpretation ABG results: PT/INR, D-dimer PT 12.9 Seconds (9.4-12.1) H 07/10/16 00:59 - Attending Attestation I examined this patient and my medical decision-making was reviewed with the BAND BI[employer] MACHINE OPERATOR/PA/Advanced Practice Nurse/Resident Physician. I agree with the documented findings, disposition and treatment plan as described except to the extent set forth below. patient refuses to participate in PT.
[2016-07-13] MEDS: Sennosides/Docusate Sodium TABLET PO SCH ×2 (17:21→21:45)
[2016-07-13] MEDS: Aspirin Enteric Coated 81 MG Tablet PO SCH (17:21)
[2016-07-13] MEDS ORDERED: *HR* LORazepam 0.5 MG TABLET PO ONE (20:13)
[2016-07-14] MEDS: PERIT DIALYSIS PERITONEAL SCH ×6 (01:01→21:40)
[2016-07-14] MEDS: HEPARIN PERITONEAL SCH ×6 (01:01→21:40)
[2016-07-14] MEDS: DEX PERITONEAL SCH ×6 (01:01→21:40)
[2016-07-14] MEDS: *HR* Heparin 5,000 UNIT/ML VIAL SQ SCH ×2 (05:43→18:34)
[2016-07-14 05:52] LABS: Basophils # 0.1 K/mcL (0.0-0.2); Basophils % 0.5 %; Eosinophils # 0.1 K/mcL (0.0-0.6); Eosinophils % 1.4 %; Hemoglobin 9.3 g/dL (12.9-16.9); Immature Granulocytes % 0.9 % (0-4); Lymphocytes # 1.6 K/mcL (0.6-4.6); Lymphocytes % 15.4 %; Mean Corpuscular HGB Conc 32.1 g/dL (31.6-35.5); Mean Corpuscular Hemoglobin 29.5 pg (28.0-33.3); Mean Corpuscular Volume 92.1 fL (83.0-100.0); Mean Platelet Volume 9.9 fL (9.4-12.4); Monocytes # 0.9 K/mcL (0.0-1.3); Monocytes % 9.1 %; Neutrophils # 7.4 K/mcL (1.6-8.9); Nucleated Red Blood Cells 0.2 /100 WBC (0); Platelet Count 300 K/mcL (140-400); Red Blood Count 3.15 M/mcL (4.19-5.50); Red Cell Distribution Width 17.4 % (11.5-14.5); Segmented Neutrophils % 72.7 %
[2016-07-14 06:12] LABS: Calcium 11.2 mg/dL (8.6-10.8); Magnesium 1.6 mg/dL (1.6-2.6); Potassium 3.8 mEq/L (3.5-4.5)
--- NOTE | 2016-07-14 08:18 | Nephrology Progress Note ---
Date of Encounter: 07/14/16 Time of Encounter: 08:16 - Assessment and Plan (1) End stage chronic kidney disease Current Visit: Yes Status: Acute The patient will continue on peritoneal dialysis with 1.5% dialysate and 1.5 calcium. The patient's exchanges were increased to 5 daily. Patient continues on Sensipar. Potassium is stable. Calcium is starting to improve. Because the patient is taking very little in orally and can start the patient on maintenance IV. Because there is a question of depression and/or underlying dementia I think it may be worthwhile to request consultations from both neurology as well as psychiatry. I will leave this up to the hospitalist service. (2) Anemia in chronic kidney disease (CKD) Current Visit: Yes Status: Acute (3) Chronic orthostatic hypotension Current Visit: Yes Status: Acute (4) Hypokalemia Current Visit: Yes Status: Acute (5) Atrial fibrillation Current Visit: Yes Status: Chronic Qualifiers: Atrial fibrillation type: persistent Qualified Code(s): I48.1 - Persistent atrial fibrillation Subjective Principal diagnosis: Elevated troponin Interval history: The patient's reports that yesterday the patient had continued periods of intermittent confusion along with irritability and anxiety as well as some crying. There is a question as to whether or not the patient has underlying depression. His potassium is improved. His calcium is starting to improve. He continues on his usual dialysis. Vital signs are stable. However the patient's reports that he once again is eating and drinking poorly. Objective - Vital Signs Vital signs: Vital Signs Temp Pulse Resp BP Pulse Ox 07/14/16 07:18 98.2 F 77 16 158/72 95 07/14/16 03:38 98.1 F 86 18 113/58 96 07/14/16 00:00 97.9 F 89 16 134/73 99 07/13/16 20:48 97.6 F 98 16 104/62 94 07/13/16 16:10 97.5 F L 87 18 145/71 97 07/13/16 11:21 97.4 F L 82 18 118/71 98 Intake and Output 07/13/16 07/14/16 07/14/16 23:59 07:59 15:59 Intake Total 200 / 200 40 / 40 Balance 200 / 200 40 / 40 Intake: Oral 200 / 200 40 / 40 Other: Total Peritoneal Dialysis -500 -1000 Output Stool Size Small Stool Consistency soft formed Stool Color Brown # Bowel Movements 1 Weight 72.2 kg 72.2 kg Patient Weight 07/14/16 23:59 Weight 72.2 kg - General Appearance Exam: Patient is currently sleeping. He appears comfortable. Lungs are clear. Heart regular rate and rhythm. Abdomen is benign. No peripheral edema. - Lab 07/14/16 04:38 07/14/16 04:38 Most recent lab results Calcium 11.2 mg/dL (8.6-10.8) H 07/14/16 04:38 Phosphorus 5.0 mg/dL (2.3-4.7) H 07/13/16 04:06 Magnesium 1.6 mg/dL (1.6-2.6) 07/14/16 04:38 Consult Discharge Plan - Plan Referrals: Juan C Luna CNP [Advanced Practice Nurse] - 08/01/16 1:30 pm Kory Gómez MD [Primary Care Provider] - 07/20/16 9:40 am (Web requested )
[2016-07-14] MEDS: Renal Vitamin 1 MG CAPSULE PO SCH (09:03)
[2016-07-14] MEDS: Loratadine 10 MG TABLET PO SCH (09:04)
[2016-07-14] MEDS: Magnesium Oxide 400 MG TABLET PO SCH (09:04)
[2016-07-14] MEDS: Calcitonin-Salmon, Synthetic 400 UNIT/2 ML VIAL SQ SCH (09:05)
[2016-07-14] MEDS: 0.9 % Sodium Chloride 1,000 ML IVC SCH ×2 (09:08→23:45)
[2016-07-14] MEDS: Sennosides/Docusate Sodium TABLET PO SCH (18:33)
[2016-07-14] MEDS: Aspirin Enteric Coated 81 MG Tablet PO SCH (18:33)
--- NOTE | 2016-07-14 18:53 | Internal Med Progress Note ---
<LavellNorma Kelseadelphine Winchester - Last Filed: 07/14/16 19:22> Date of Encounter: 07/14/16 Time of Encounter: 10:45 - Assessment and plan (1) Metabolic encephalopathy Current Visit: Yes Status: Resolved Assessment and plan: Improved today is present with patient at bedside with 2 daughters Patient very tired today Difficult to assess mental status due to lethargy Family states mental status has returned to baseline (2) Depression Current Visit: Yes Status: Acute Assessment and plan: Start Mirtazapine today Patient may benefit from improved mood as well as increased appetite Monitor Qualifiers: Depression Type: unspecified Qualified Code(s): F32.9 - Major depressive disorder, single episode, unspecified (3) Orthostatic hypotension Current Visit: Yes Status: Acute Assessment and plan: Very difficult for patient to stand due to orthostatic hypotension This complicates his abiltiy to participate in therapy However, patient may participate in limited therapy isolated to in-bed exercises Patient is on a medication on clinical trial for orthostatic hypotension However, he does not have it with him here at hospital (4) End stage renal disease Current Visit: Yes Status: Acute Assessment and plan: Continue peritoneal dialysis. Followed by nephrology (5) Elevated troponin Current Visit: Yes Status: Acute Assessment and plan: Elevated troponin the setting of ESRD and acute illness. Troponins, trending down (6) Weight loss Current Visit: Yes Status: Acute Assessment and plan: Patient is not eating well He states that he has no appetite Started on Megestrol by Dr. Boyer We started Mirtazapine, which may improve mood and encourage appetite Encouraged family to continue to get patient to eat (7) Failure to thrive Current Visit: Yes Status: Acute Assessment and plan: Plan as above Qualifiers: Failure to thrive age range: in adult Qualified Code(s): R62.7 - Adult failure to thrive (8) Muscular deconditioning Current Visit: Yes Status: Acute Assessment and plan: Pt/OT (9) Idioventricular rhythm Current Visit: Yes Status: Acute Assessment and plan: resolved (10) Secondary hyperparathyroidism Current Visit: Yes Status: Acute Assessment and plan: on calcitonin and phosphate binders. (11) Anemia Current Visit: Yes Status: Acute Assessment and plan: chronic secondary to ESRD on Darbopoetin Qualifiers: Anemia type: other cause Other causes of anemia: chronic disease, other Qualified Code(s): D63.8 - Anemia in other chronic diseases classified elsewhere (12) DVT prophylaxis Current Visit: Yes Status: Acute Assessment and plan: Heparin SQ - Subjective Interval history: states that confusion is improved today. Patient is sleeping in bed at time of exam. and 2 daughters are present at bedside. believes that megase is not helping with appetite. She states that patient awoke yesterday afternoon with an episode of crying. Patient stated that believes that he is not going to get better. When patient's daughter arrived later in the afternoon , patient had another crying spell. The family feels that patient has had depression for the last few months owing to his declining health status. - Constitutional Vitals: Temp Pulse Resp BP Pulse Ox 98.0 F 89 18 119/68 97 07/14/16 17:09 07/14/16 17:09 07/14/16 17:09 07/14/16 17:09 07/14/16 17:09 General appearance: Present: A&O X 0 (patient asleep at time of patient interview) - Head Head exam: Present: atraumatic, normocephalic - Neck Neck exam general surgery: Present: supple, trachea midline - Respiratory Respiratory exam: Present: CTAB. Absent: accessory muscle use, rales, rhonchi, wheezes - Cardiovascular Cardiovascular exam: Present: RRR, +S1, +S2. Absent: diastolic murmur, gallop, rubs, systolic murmur - GI/Abdominal GI/Abdominal exam: Present: normal bowel sounds, soft, tenderness (mild tenderness to palpation), no peritoneal signs. Absent: distended Additional comments: peritoneal catheter in place to midline abdomen, clean and well-dressed - Extremities Exam Extremities exam: Present: warm. Absent: cyanotic, pedal edema Additional comments: Diffuse muscle atrophy - Neurological Exam Neurological exam: Present: no focal deficits - Skin Skin exam: Present: dry, intact Internal Medicine: Result - Labs CBC & Chem 7: 07/14/16 04:38 07/14/16 04:38 Labs: Short CBC 07/14/16 Range/Units 04:38 WBC 10.2 (4.3-11.1) K/mcL Hgb 9.3 L (12.9-16.9) g/dL Hct 29.0 L (37.5-50.1) % Plt Count 300 (140-400) K/mcL Neutrophils # 7.4 (1.6-8.9) K/mcL [facility] 07/14/16 04:38 Sodium 135 L Potassium 3.8 Chloride 99 Carbon Dioxide 25 BUN 28 H Creatinine 6.78 H Glucose 111 H Calcium 11.2 H - ABG Interpretation ABG results: PT/INR, D-dimer PT 12.9 Seconds (9.4-12.1) H 07/10/16 00:59 Consult Discharge Plan - Plan Referrals: Juan C Luna CNP [Advanced Practice Nurse] - 08/01/16 1:30 pm Kory Gómez MD [Primary Care Provider] - 07/20/16 9:40 am (Web requested ) <Karson Baldwin - Last Filed: 07/15/16 08:34> Date of Encounter: 07/15/16 - Constitutional Vitals: Temp Pulse Resp BP Pulse Ox 97.9 F 84 16 126/54 96 07/15/16 07:20 07/15/16 07:20 07/15/16 07:20 07/15/16 07:20 07/15/16 07:20 Internal Medicine: Result - Labs CBC & Chem 7: 07/15/16 05:55 07/15/16 05:55 Labs: Short CBC 07/15/16 Range/Units 05:55 WBC 9.6 (4.3-11.1) K/mcL Hgb 9.4 L (12.9-16.9) g/dL Hct 29.3 L (37.5-50.1) % Plt Count 276 (140-400) K/mcL Neutrophils # 6.6 (1.6-8.9) K/mcL [facility] 07/15/16 07/15/16 05:55 05:55 Sodium 133 L 135 L Potassium 3.7 3.9 Chloride 98 99 Carbon Dioxide 28 28 BUN 26 26 Creatinine 5.86 H 5.99 H Glucose 104 H 103 H Calcium 11.0 H 11.0 H Liver Function 07/15/16 Range/Units 05:55 Total Bilirubin 0.3 (0.2-1.2) mg/dL AST 22 (5-34) Units/L ALT 18 (0-55) Units/L Alkaline Phosphatase 103 (38-126) Units/L Albumin 1.8 L (3.5-5.0) g/dL - ABG Interpretation ABG results: PT/INR, D-dimer PT 12.9 Seconds (9.4-12.1) H 07/10/16 00:59 - Attending Attestation I examined this patient and my medical decision-making was reviewed with the SOFTWARE TESTER/PA/Advanced Practice Nurse/Resident Physician. I agree with the documented findings, disposition and treatment plan as described except to the extent set forth below. Continue iv fluids, d/c planning, d/w patient and his family in detail.
[2016-07-14] MEDS: Mirtazapine 15 MG TABLET PO SCH (21:39)
[2016-07-15] MEDS: DEX PERITONEAL SCH ×6 (01:15→21:02)
[2016-07-15] MEDS: HEPARIN PERITONEAL SCH ×6 (01:15→21:02)
[2016-07-15] MEDS: PERIT DIALYSIS PERITONEAL SCH ×6 (01:15→21:02)
[2016-07-15] MEDS: *HR* Heparin 5,000 UNIT/ML VIAL SQ SCH ×2 (05:24→17:43)
[2016-07-15 06:30] LABS: Basophils # 0.1 K/mcL (0.0-0.2); Basophils % 0.6 %; Eosinophils # 0.3 K/mcL (0.0-0.6); Eosinophils % 2.9 %; Hematocrit 29.3 % (37.5-50.1); Hemoglobin 9.4 g/dL (12.9-16.9); Immature Granulocytes % 0.6 % (0-4); Lymphocytes # 1.7 K/mcL (0.6-4.6); Lymphocytes % 17.4 %; Mean Corpuscular HGB Conc 32.1 g/dL (31.6-35.5); Mean Corpuscular Hemoglobin 30.1 pg (28.0-33.3); Mean Corpuscular Volume 93.9 fL (83.0-100.0); Mean Platelet Volume 9.7 fL (9.4-12.4); Monocytes # 0.9 K/mcL (0.0-1.3); Monocytes % 9.4 %; Neutrophils # 6.6 K/mcL (1.6-8.9); Nucleated Red Blood Cells 0.2 /100 WBC (0); Platelet Count 276 K/mcL (140-400); Red Blood Count 3.12 M/mcL (4.19-5.50); Red Cell Distribution Width 17.6 % (11.5-14.5); Segmented Neutrophils % 69.1 %
[2016-07-15 06:42] LABS: Magnesium 1.1 mg/dL (1.6-2.6); Potassium 3.7 mEq/L (3.5-4.5)
[2016-07-15 06:44] LABS: Albumin 1.8 g/dL (3.5-5.0); Albumin/Globulin Ratio 0.7 (1.1-2.2); Bilirubin,Total 0.3 mg/dL (0.2-1.2); Globulin 2.7 g/dL (2.4-3.5); Phosphorous 4.3 mg/dL (2.3-4.7); Potassium 3.9 mEq/L (3.5-4.5); Total Protein 4.5 g/dL (6.0-8.3)
[2016-07-15] MEDS: Renal Vitamin 1 MG CAPSULE PO SCH (09:25)
[2016-07-15] MEDS: Calcitonin-Salmon, Synthetic 400 UNIT/2 ML VIAL SQ SCH (09:25)
[2016-07-15] MEDS: Magnesium Oxide 400 MG TABLET PO SCH (09:25)
[2016-07-15] MEDS: Loratadine 10 MG TABLET PO SCH (09:25)
--- NOTE | 2016-07-15 09:43 | Nephrology Progress Note ---
Date of Encounter: 07/15/16 Time of Encounter: 09:43 - Assessment and Plan (1) End stage chronic kidney disease Current Visit: Yes Status: Chronic Patient will continue with the same peritoneal dialysis regimen. He remains on Sensipar and calcitonin. His calcium was slowly improving. He will require some additional magnesium supplementation. I did speak with the Hospital service about possibly having psychiatry and/or neurology evaluating the patient as well. (2) Anemia in chronic kidney disease (CKD) Current Visit: Yes Status: Acute (3) Chronic orthostatic hypotension Current Visit: Yes Status: Acute (4) Hypokalemia Current Visit: Yes Status: Acute (5) Atrial fibrillation Current Visit: Yes Status: Chronic Qualifiers: Atrial fibrillation type: persistent Qualified Code(s): I48.1 - Persistent atrial fibrillation Subjective Principal diagnosis: Elevated troponin Interval history: Continue the patient's the patient continues to have periods of confusion intermixed with periods of being more lucid. He did not sleep well last night. From a metabolic standpoint his potassium is normal. Calcium is slowly improving. Hemoglobin is stable. His azotemia levels are improving. Magnesium remains low. Objective - Vital Signs Vital signs: Vital Signs Temp Pulse Resp BP Pulse Ox 07/15/16 07:20 97.9 F 84 16 126/54 96 07/15/16 04:26 97.7 F 78 14 130/66 94 07/14/16 23:45 97.5 F L 84 19 136/67 100 07/14/16 19:14 97.7 F 86 16 101/55 96 07/14/16 17:09 98.0 F 89 18 119/68 97 Intake and Output 07/14/16 07/15/16 07/15/16 23:59 07:59 15:59 Intake Total 1000 / 1000 Balance 1000 / 1000 Intake: IV Fluids 1000 / 1000 0.9 % Sodium Chloride 1, 1000 / 1000 000 ML @ 60 mls/hr IVC . [id number] [facility] Rx#: [id number] Other: Total Peritoneal Dialysis -400 0 Output Weight 69.2 kg 70.5 kg Patient Weight 07/15/16 23:59 Weight 70.5 kg - General Appearance Exam: Patient is alert. He is in no acute distress. He does recognize me by name. He says he is having difficulty in putting his thoughts into words. He does realize that at times he is confused. Heart regular rate and rhythm. Lungs symmetric breath sounds otherwise clear. Abdomen is benign. Catheter exit site appears to be intact. There is no peripheral edema. - Lab 07/15/16 05:55 07/15/16 05:55 Most recent lab results Calcium 11.0 mg/dL (8.6-10.8) H 07/15/16 05:55 Phosphorus 4.3 mg/dL (2.3-4.7) 07/15/16 05:55 Magnesium 1.1 mg/dL (1.6-2.6) L 07/15/16 05:55 Consult Discharge Plan - Plan Referrals: Juan C Luna CNP [Advanced Practice Nurse] - 08/01/16 1:30 pm Kory Gómez MD [Primary Care Provider] - 07/20/16 9:40 am (Web requested )
[2016-07-15] MEDS ORDERED: Magnesium Sulfate 2 GM in D5% in Water 100 ML IVPB ONE (09:48)
--- NOTE | 2016-07-15 12:54 | Internal Med Progress Note ---
<Norma Monte Annabella - Last Filed: 07/15/16 12:49> Date of Encounter: 07/15/16 Time of Encounter: 10:00 - Assessment and plan (1) Metabolic encephalopathy Current Visit: Yes Status: Acute Assessment and plan: Improving Suspect this is secondary to electrolyte Patient awake today and is oriented to person, place, time (2) Depression Current Visit: Yes Status: Acute Assessment and plan: 07/14/16 Start Mirtazapine today Patient may benefit from improved mood as well as increased appetite Monitor 07/15/16 Patient started Mirtazapine yesterday He will be evaluated today by psychiatry for depression versus peudo-dementia Continue Mirtazapine Qualifiers: Depression Type: unspecified Qualified Code(s): F32.9 - Major depressive disorder, single episode, unspecified (3) Orthostatic hypotension Current Visit: Yes Status: Chronic Assessment and plan: Very difficult for patient to stand due to orthostatic hypotension This complicates his ability to participate in therapy However, patient may participate in limited therapy isolated to in-bed exercises Patient is on a medication on clinical trial for orthostatic hypotension However, he does not have it with him here at hospital (4) End stage renal disease Current Visit: Yes Status: Chronic Assessment and plan: Continue peritoneal dialysis. Followed by nephrology (5) Elevated troponin Current Visit: Yes Status: Chronic Assessment and plan: Elevated troponin the setting of ESRD and acute illness. Troponins, trending down (6) Weight loss Current Visit: Yes Status: Chronic Assessment and plan: Patient is not eating well He states that he has no appetite Started on Megestrol by Dr. Boyer We started Mirtazapine, which may improve mood and encourage appetite Encouraged family to continue to get patient to eat (7) Failure to thrive Current Visit: Yes Status: Chronic Assessment and plan: Plan as above Qualifiers: Failure to thrive age range: in adult Qualified Code(s): R62.7 - Adult failure to thrive (8) Muscular deconditioning Current Visit: Yes Status: Chronic Assessment and plan: Pt/OT (9) Idioventricular rhythm Current Visit: Yes Status: Resolved Assessment and plan: resolved (10) Secondary hyperparathyroidism Current Visit: Yes Status: Chronic Assessment and plan: on calcitonin and phosphate binders. 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 He is accompanied by his and daughter. states that patient is confused today. Patient admits that he is confused today. He states that while he would love to go home, he feels too confused to go home at this time. - Constitutional Vitals: Temp Pulse Resp BP Pulse Ox 97.9 F 84 16 126/54 96 07/15/16 07:20 07/15/16 07:20 07/15/16 07:20 07/15/16 07:20 07/15/16 07:20 General appearance: Present: A&O X 2, A&O X 3, answers questions appropriately - Head Head exam: Present: atraumatic, normocephalic - Eye Eye exam: Present: PERRL, sclera anicteric Pupils: Present: PERRL - Neck Neck exam general surgery: Present: supple, trachea midline - Respiratory Respiratory exam: Present: CTAB. Absent: accessory muscle use, rales, rhonchi, wheezes - Cardiovascular Cardiovascular exam: Present: RRR, +S1, +S2. Absent: diastolic murmur, gallop, rubs, systolic murmur - GI/Abdominal GI/Abdominal exam: Present: normal bowel sounds, soft, no peritoneal signs. Absent: distended, tenderness Additional comments: Peritoneal catheter in place, dressing is clean, dry, and intact - Extremities Exam Extremities exam: Present: warm, radial pulses palpable and symetrical. Absent : calf tenderness, cyanotic, pedal edema - Neurological Exam Neurological exam: Present: CN II-XII intact, oriented X3, no focal deficits. Absent: facial droop, speech deficit - Skin Skin exam: Present: dry, intact Internal Medicine: Result - Labs CBC & Chem 7: 07/15/16 05:55 07/15/16 05:55 Labs: Short CBC 07/15/16 Range/Units 05:55 WBC 9.6 (4.3-11.1) K/mcL Hgb 9.4 L (12.9-16.9) g/dL Hct 29.3 L (37.5-50.1) % Plt Count 276 (140-400) K/mcL Neutrophils # 6.6 (1.6-8.9) K/mcL BMP 07/15/16 07/15/16 05:55 05:55 Sodium 133 L 135 L Potassium 3.7 3.9 Chloride 98 99 Carbon Dioxide 28 28 BUN 26 26 Creatinine 5.86 H 5.99 H Glucose 104 H 103 H Calcium 11.0 H 11.0 H Liver Function 07/15/16 Range/Units 05:55 Total Bilirubin 0.3 (0.2-1.2) mg/dL AST 22 (5-34) Units/L ALT 18 (0-55) Units/L Alkaline Phosphatase 103 (38-126) Units/L Albumin 1.8 L (3.5-5.0) g/dL - ABG Interpretation ABG results: PT/INR, D-dimer PT 12.9 Seconds (9.4-12.1) H 07/10/16 00:59 Consult Discharge Plan - Plan Referrals: Juan C Luna CNP [Advanced Practice Nurse] - 08/01/16 1:30 pm Kory Gómez MD [Primary Care Provider] - 07/20/16 9:40 am (Web requested ) <Karson Baldwin - Last Filed: 07/15/16 18:04> Date of Encounter: 07/15/16 - Constitutional Vitals: Temp Pulse Resp BP Pulse Ox 98.2 F 76 16 141/64 97 07/15/16 15:44 07/15/16 15:44 07/15/16 15:44 07/15/16 15:44 07/15/16 15:44 Internal Medicine: Result - Labs CBC & Chem 7: 07/15/16 05:55 07/15/16 05:55 Labs: Short CBC 07/15/16 Range/Units 05:55 WBC 9.6 (4.3-11.1) K/mcL Hgb 9.4 L (12.9-16.9) g/dL Hct 29.3 L (37.5-50.1) % Plt Count 276 (140-400) K/mcL Neutrophils # 6.6 (1.6-8.9) K/mcL BMP 07/15/16 07/15/16 05:55 05:55 Sodium 133 L 135 L Potassium 3.7 3.9 Chloride 98 99 Carbon Dioxide 28 28 BUN 26 26 Creatinine 5.86 H 5.99 H Glucose 104 H 103 H Calcium 11.0 H 11.0 H Liver Function 07/15/16 Range/Units 05:55 Total Bilirubin 0.3 (0.2-1.2) mg/dL AST 22 (5-34) Units/L ALT 18 (0-55) Units/L Alkaline Phosphatase 103 (38-126) Units/L Albumin 1.8 L (3.5-5.0) g/dL - ABG Interpretation ABG results: PT/INR, D-dimer PT 12.9 Seconds (9.4-12.1) H 07/10/16 00:59 - Attending Attestation I examined this patient and my medical decision-making was reviewed with the INDUSTRIAL BOILERMAKER/PA/Advanced Practice Nurse/Resident Physician. I agree with the documented findings, disposition and treatment plan as described except to the extent set forth below. Naida, D/W patient and his . Possible d/c tomorrow.
[2016-07-15] MEDS: 0.9 % Sodium Chloride 1,000 ML IVC SCH (14:41)
--- NOTE | 2016-07-15 17:19 | Consult Note ---
Date of Encounter: 07/15/16 Time of Encounter: 16:45 Assessment & Recommendation (1) Depressed affect Current visit: Yes Status: Acute History of Present Illness Requesting Physician: Karson Baldwin History of present illness: Mr. Mueller is a 80 year old male with chronic renal disease and dialysis who has been showing progressive symptoms of depression. According to his Mrs Mueller 2 days ago pt became particularly emotional and believed his end is nearing. He has reduced appetite and wt loss. Pt has no past h/o depression or anxiety. This appears to be a late onset of depression ;likely secondary to having medical issues. I noticed you have him on Remeron 15 mg hs , which can certainly be increased to 30 mg hs. If there is no response to his depression with appetite and social isolation being the target symptoms to follow, you can consider starting him on Cymbalta 20 mg and gradually increasing it once a week by 20 mg till a dose of 90 mg is achieved. Please note that Cymbalta cannot be discontinued abruptly as it has an uncomfortable withdrawal syndrome. Thanks for allowing me the opportunity to participate in this pt's care. CC: Karson Baldwin Past Med Surg Social Fam HX - Past Medical History Medical history: atrial fibrillation, hypertension, renal disease - Past Psychiatric History Psychiatric history: Reports: no psych history - Social History Smoking Status: Former smoker Smokeless Tobacco Status: No Alcohol use: none Drug use: none Medications & Allergies Allopurinol [Zyloprim 100 MG] 100 mg PO QAM 07/09/16 [History] Aspirin Enteric Coated [Aspirin EC] 81 mg PO QPM 07/09/16 [History] Cinacalcet HCl [Sensipar] 90 mg PO BID 07/09/16 [History] Droxidopa [Northera] 300 mg PO TID 07/09/16 [History] Epoetin Aram [Epogen] 2,000 unit IJ 07/09/16 [History] Fludrocortisone Acetate [Florinef] 0.1 mg PO BID 07/09/16 [History] Loratadine [Claritin] 10 mg PO DAILY 07/09/16 [History] Midodrine HCl 10 mg PO QID 07/09/16 [History] Multivitamin [Multi-Day Vitamins] 1 each PO QPM 07/09/16 [History] Polyethylene Glycol 3350 [Smoothlax] 17 gm PO QAM 07/09/16 [History] Sennosides/Docusate Sodium [Senna Plus] 1 each PO QPM 07/09/16 [History] Sevelamer [Renvela] 800 mg PO TIDWM 07/09/16 [History] Tamsulosin [Flomax] 0.4 mg PO QPM 07/09/16 [History] Allergies No Known Allergies Allergy (Verified 07/09/16 13:04) Review of Systems Psychiatric: Reports: depression, change in appetite, anhedonia, difficulty concentrating Mental Status Exam Level of alertness: Sedated Patient appearance: Thin Behavior: tearful Psychomotor activity: Slowed Eye contact: Maintains Eye Contact Mood description: Depressed Affect description: congruent with mood Speech pattern: Slowed Speech volume: Soft/Quiet Thought process: Logical Thought content: Yes Intact Perceptual disturbances: No Auditory hallucinations, No Visual hallucinations Attention span: Capable of Focused Attention Memory description: Grossly Intact Patient reliability: Reliable Historian Intelligence estimate: Above [place] Judgment: Fair Insight: Full Results - Vital Signs Vital signs: Temp Pulse Resp BP Pulse Ox 98.2 F 76 16 141/64 97 07/15/16 15:44 07/15/16 15:44 07/15/16 15:44 07/15/16 15:44 07/15/16 15:44 - Labs Labs: Laboratory Last Values WBC 9.6 K/mcL (4.3-11.1) 07/15/16 05:55 RBC 3.12 M/mcL (4.19-5.50) L 07/15/16 05:55 Hgb 9.4 g/dL (12.9-16.9) L 07/15/16 05:55 Hct 29.3 % (37.5-50.1) L 07/15/16 05:55 MCV 93.9 fL (83.0-100.0) 07/15/16 05:55 MCH 30.1 pg (28.0-33.3) 07/15/16 05:55 MCHC 32.1 g/dL (31.6-35.5) 07/15/16 05:55 RDW 17.6 % (11.5-14.5) H 07/15/16 05:55 Plt Count 276 K/mcL (140-400) 07/15/16 05:55 MPV 9.7 fL (9.4-12.4) 07/15/16 05:55 Immature Gran % 0.6 % (0-4) 07/15/16 05:55 Seg Neutrophils % 69.1 % 07/15/16 05:55 Lymphocytes % 17.4 % 07/15/16 05:55 Monocytes % 9.4 % 07/15/16 05:55 Eosinophils % 2.9 % 07/15/16 05:55 Basophils % 0.6 % 07/15/16 05:55 Neutrophils # 6.6 K/mcL (1.6-8.9) 07/15/16 05:55 Lymphocytes # 1.7 K/mcL (0.6-4.6) 07/15/16 05:55 Monocytes # 0.9 K/mcL (0.0-1.3) 07/15/16 05:55 Eosinophils # 0.3 K/mcL (0.0-0.6) 07/15/16 05:55 Basophils # 0.1 K/mcL (0.0-0.2) 07/15/16 05:55 Nucleated RBCs/100 WBC 0.2 /100 WBC (0) H 07/15/16 05:55 Immature Plt Fraction 2.3 % (1.1-6.1) 07/09/16 13:19 PT 12.9 Seconds (9.4-12.1) H 07/10/16 00:59 INR 1.2 07/10/16 00:59 APTT 64.1 Seconds (26.0-36.0) H 07/11/16 00:08 Sodium 135 mEq/L (136-145) L 07/15/16 05:55 Potassium 3.9 mEq/L (3.5-4.5) 07/15/16 05:55 Chloride 99 mEq/L (98-109) 07/15/16 05:55 Carbon Dioxide 28 mEq/L (19-29) 07/15/16 05:55 BUN 26 mg/dL (8-26) 07/15/16 05:55 Creatinine 5.99 mg/dL (0.72-1.25) H 07/15/16 05:55 Est GFR ( Amer) 11 (> 60) L 07/15/16 05:55 Est GFR (Non-Af Amer) 9 (> 60) L 07/15/16 05:55 BUN/Creatinine Ratio 4 (6-26) L 07/15/16 05:55 Glucose 103 mg/dL (70-99) H 07/15/16 05:55 POC Glucose 103 (58-89) H 07/09/16 18:45 Calculated Osmolality 285 (280-300) 07/15/16 05:55 Lactic Acid 1.1 mmol/L (0.5-2.2) 07/09/16 17:09 Calcium 11.0 mg/dL (8.6-10.8) H 07/15/16 05:55 Phosphorus 4.3 mg/dL (2.3-4.7) 07/15/16 05:55 Magnesium 1.1 mg/dL (1.6-2.6) L 07/15/16 05:55 Iron 26 mcg/dL (65-175) L 07/10/16 14:00 % Saturation 14 % (20-55) L 07/10/16 14:00 Transferrin 134 mg/dL (174-364) L 07/10/16 14:00 Total Bilirubin 0.3 mg/dL (0.2-1.2) 07/15/16 05:55 Direct Bilirubin 0.2 mg/dL (0.0-0.5) 07/09/16 13:19 Indirect Bilirubin 0.2 mg/dL (0.0-1.2) 07/09/16 13:19 AST 22 Units/L (5-34) 07/15/16 05:55 ALT 18 Units/L (0-55) 07/15/16 05:55 Alkaline Phosphatase 103 Units/L (38-126) 07/15/16 05:55 Ammonia 15 mcmol/L (18-72) L 07/09/16 13:19 Troponin I 0.97 ng/mL (0-0.03) H* 07/10/16 00:59 B-Natriuretic Peptide 373 pg/mL (0-100) H 07/09/16 13:19 Serum Total Protein 4.5 g/dL (6.0-8.3) L 07/15/16 05:55 Albumin 1.8 g/dL (3.5-5.0) L 07/15/16 05:55 Globulin 2.7 g/dL (2.4-3.5) 07/15/16 05:55 Albumin/Globulin Ratio 0.7 (1.1-2.2) L 07/15/16 05:55 Prealbumin 18.0 mg/dL (18.0-45.0) 07/13/16 04:06 PTH Intact 733.2 pg/ml (8.5-72.5) H 07/10/16 14:00 Urine Color Red (Yellow) A 07/09/16 14:00 Urine Clarity Cloudy (Clear) A 07/09/16 14:00 Urine pH 5.5 pH Units (5.0-8.0) 07/09/16 14:00 Ur Specific [place] 1.021 (1.010-1.025) 07/09/16 14:00 Urine Protein 30 mg/dL (Neg-Trace) H 07/09/16 14:00 Urine Glucose (UA) Normal mg/dL (Normal) 07/09/16 14:00 Urine Ketones Negative mg/dL (Negative) 07/09/16 14:00 Urine Blood Negative (Negative) 07/09/16 14:00 Urine Nitrite Negative (Negative) 07/09/16 14:00 Urine Bilirubin Small (Negative) H 07/09/16 14:00 Urine Urobilinogen Normal mg/dL (Normal) 07/09/16 14:00 Ur Leukocyte Esterase Moderate (Negative) H 07/09/16 14:00 Urine Microscopic RBC 0-3 per hpf (0-3) 07/09/16 14:00 Urine Microscopic WBC 5-15 per hpf (0-3) H 07/09/16 14:00 Ur Squamous Epith Cells Few per lpf (None-Few) 07/09/16 14:00 Urine Bacteria Moderate per hpf (None-Few) H 07/09/16 14:00 Hyaline Casts Test Not Performed 07/09/16 14:00 Urine Yeast Test Not Performed 07/09/16 14:00 Ur Culture Indicated? YES (NO) A 07/09/16 14:00 Blood Type O POSITIVE 07/11/16 08:54 Antibody Screen NEGATIVE 07/11/16 08:54 Crossmatch See Detail 07/11/16 08:54 Consult Discharge Plan - Plan Referrals: Juan C Luna CNP [Advanced Practice Nurse] - 08/01/16 1:30 pm Kory Gómez MD [Primary Care Provider] - 07/20/16 9:40 am (Web requested )
[2016-07-15] MEDS: Aspirin Enteric Coated 81 MG Tablet PO SCH (17:36)
[2016-07-15] MEDS: Sennosides/Docusate Sodium TABLET PO SCH (17:36)
[2016-07-15] MEDS: Mirtazapine 15 MG TABLET PO SCH (22:36)
[2016-07-16] MEDS: PERIT DIALYSIS PERITONEAL SCH ×3 (01:07→10:23)
[2016-07-16] MEDS: HEPARIN PERITONEAL SCH ×3 (01:07→10:23)
[2016-07-16] MEDS: DEX PERITONEAL SCH ×3 (01:07→10:23)
[2016-07-16] MEDS: 0.9 % Sodium Chloride 1,000 ML IVC SCH (05:30)
[2016-07-16] MEDS: *HR* Heparin 5,000 UNIT/ML VIAL SQ SCH (05:35)
[2016-07-16 06:13] LABS: Basophils # 0.1 K/mcL (0.0-0.2); Basophils % 0.8 %; Eosinophils # 0.3 K/mcL (0.0-0.6); Eosinophils % 3.3 %; Hematocrit 30.4 % (37.5-50.1); Hemoglobin 9.8 g/dL (12.9-16.9); Immature Granulocytes % 0.7 % (0-4); Immature Platelets 1.8 % (1.1-6.1); Lymphocytes # 1.9 K/mcL (0.6-4.6); Lymphocytes % 18.1 %; Mean Corpuscular HGB Conc 32.2 g/dL (31.6-35.5); Mean Corpuscular Hemoglobin 30.4 pg (28.0-33.3); Mean Corpuscular Volume 94.4 fL (83.0-100.0); Mean Platelet Volume 9.3 fL (9.4-12.4); Monocytes # 0.9 K/mcL (0.0-1.3); Monocytes % 8.8 %; Nucleated Red Blood Cells 0.2 /100 WBC (0); Platelet Count 310 K/mcL (140-400); Red Blood Count 3.22 M/mcL (4.19-5.50); Red Cell Distribution Width 17.8 % (11.5-14.5); Segmented Neutrophils % 68.3 %
[2016-07-16 06:23] LABS: Calcium 11.1 mg/dL (8.6-10.8); Magnesium 1.9 mg/dL (1.6-2.6); Potassium 4.3 mEq/L (3.5-4.5)
[2016-07-16 06:36] VITALS: BP 169/75
[2016-07-16] MEDS: Loratadine 10 MG TABLET PO SCH (08:14)
[2016-07-16] MEDS: Renal Vitamin 1 MG CAPSULE PO SCH (08:14)
[2016-07-16] MEDS: Magnesium Oxide 400 MG TABLET PO SCH (08:14)
--- NOTE | 2016-07-16 08:29 | Nephrology Progress Note ---
Date of Encounter: 07/16/16 Time of Encounter: 08:27 - Assessment and Plan (1) End stage chronic kidney disease Current Visit: Yes Status: Chronic Patient will continue with the same peritoneal dialysis regimen. He remains on Sensipar and calcitonin. His metabolic parameters are unchanged. Psychiatry input has been noted. He will be commenced on treatment for possible depression. (2) Anemia in chronic kidney disease (CKD) Current Visit: Yes Status: Acute (3) Chronic orthostatic hypotension Current Visit: Yes Status: Acute (4) Hypokalemia Current Visit: Yes Status: Acute (5) Atrial fibrillation Current Visit: Yes Status: Chronic Qualifiers: Atrial fibrillation type: persistent Qualified Code(s): I48.1 - Persistent atrial fibrillation Subjective Principal diagnosis: Elevated troponin Interval history: The patient appears more alert and oriented this morning. The patient's reports that he seemed to be doing pretty well since about 3 AM this morning. Apparently his appetite is increased during the night and he has been eating more than he has been since she has been in the hospital. Potassium is stable. Calcium is essentially unchanged. Hemoglobin is stable. Vital signs are stable. Objective - Vital Signs Vital signs: Vital Signs Temp Pulse Resp BP Pulse Ox 07/16/16 06:35 97.6 F 85 18 169/75 96 07/16/16 04:28 97.5 F L 88 18 115/63 93 07/16/16 00:02 97.4 F L 85 16 173/80 96 07/15/16 20:51 97.8 F 82 18 153/68 94 07/15/16 15:44 98.2 F 76 16 141/64 97 Intake and Output 07/15/16 07/16/16 07/16/16 23:59 07:59 15:59 Intake Total 240 / 240 1000 / 1000 Balance 240 / 240 1000 / 1000 Intake: IV Fluids 1000 / 1000 0.9 % Sodium Chloride 1, 1000 / 1000 000 ML @ 60 mls/hr IVC . [id number] [facility] Rx#: [id number] Oral 240 / 240 Other: Meal Dinner Percent of Meal Consumed 10% Total Peritoneal Dialysis -500 0 Output # Voids 1 Weight 73.5 kg 75.2 kg Patient Weight 07/16/16 23:59 Weight 75.2 kg - General Appearance Exam: Patient is alert. He answers questions. He is in no acute distress. Lungs sounds otherwise clear. Heart regular rate and rhythm. Abdomen was benign. Peritoneal dialysis catheter exit site is intact. There is no peripheral edema. - Lab 07/16/16 05:53 07/16/16 05:53 Most recent lab results Calcium 11.1 mg/dL (8.6-10.8) H 07/16/16 05:53 Phosphorus 4.3 mg/dL (2.3-4.7) 07/15/16 05:55 Magnesium 1.9 mg/dL (1.6-2.6) 07/16/16 05:53 Consult Discharge Plan - Plan Referrals: Juan C Luna CNP [Advanced Practice Nurse] - 08/01/16 1:30 pm Kory Gómez MD [Primary Care Provider] - 07/20/16 9:40 am (Web requested )
[2016-07-16] MEDS ORDERED: Calcitonin-Salmon, Synthetic 400 UNIT/2 ML VIAL SQ SCH (09:00)
--- NOTE | 2016-07-16 11:07 | Discharge Summary ---
<Raymond Coronado - Last Filed: 07/16/16 11:01> Date of Encounter: 07/16/16 Time of Encounter: 11:01 - Discharge Diagnosis (1) Metabolic encephalopathy Status: Acute (2) Idioventricular rhythm Status: Resolved (3) Failure to thrive Status: Chronic Qualifiers: Failure to thrive age range: in adult Qualified Code(s): R62.7 - Adult failure to thrive (4) Elevated troponin Status: Chronic (5) End stage renal disease Status: Chronic (6) Weight loss Status: Chronic (7) Muscular deconditioning Status: Chronic (8) Secondary hyperparathyroidism Status: Chronic (9) Anemia Status: Chronic Qualifiers: Anemia type: other cause Other causes of anemia: chronic disease, other Qualified Code(s): D63.8 - Anemia in other chronic diseases classified elsewhere (10) DVT prophylaxis Status: Acute - Discharge Medications Prescriptions: Atorvastatin [Lipitor] 40 mg PO HS #30 tablet Metoprolol [Lopressor] 25 mg PO BID 60 Days Mirtazapine [Remeron] 15 mg PO HS 30 Days Potassium Chloride 20 meq PO BID 30 Days Home Medications: Allopurinol [Zyloprim 100 MG] 100 mg PO QAM 07/09/16 [History] Aspirin Enteric Coated [Aspirin EC] 81 mg PO QPM 07/09/16 [History] Cinacalcet HCl [Sensipar] 90 mg PO BID 07/09/16 [History] Droxidopa [Northera] 300 mg PO TID 07/09/16 [History] Epoetin Aram [Epogen] 2,000 unit IJ 07/09/16 [History] Fludrocortisone Acetate [Florinef] 0.1 mg PO BID 07/09/16 [History] Loratadine [Claritin] 10 mg PO DAILY 07/09/16 [History] Multivitamin [Multi-Day Vitamins] 1 each PO QPM 07/09/16 [History] Polyethylene Glycol 3350 [Smoothlax] 17 gm PO QAM 07/09/16 [History] Sennosides/Docusate Sodium [Senna Plus] 1 each PO QPM 07/09/16 [History] Sevelamer [Renvela] 800 mg PO TIDWM 07/09/16 [History] Tamsulosin [Flomax] 0.4 mg PO QPM 07/09/16 [History] Atorvastatin [Lipitor] 40 mg PO HS #30 tablet 07/16/16 [Rx] Metoprolol [Lopressor] 25 mg PO BID 60 Days 07/16/16 [Rx] Mirtazapine [Remeron] 15 mg PO HS 30 Days 07/16/16 [Rx] Potassium Chloride 20 meq PO BID 30 Days 07/16/16 [Rx] Allergies/Adverse Reactions: Allergies No Known Allergies Allergy (Verified 07/09/16 13:04) Date of admission: 07/09/16 19:06 Primary care physician: Kory Gómez MD Consults: 07/12/16 14:25 Consult to Occupational Therapy [CONS] Routine Comment: Evaluate, develop and implement POC Consult to Physical Therapy [CONS] Routine Comment: Evaluate, develop and implement POC 07/12/16 15:57 Consult to Nutrition [CONS] Stat Comment: Consulting Provider: NUTRITION Reason for Dietary Consult: Other Other:: patient losing appetite not wanting to eat 07/15/16 10:51 Consult to Psychiatry [CONS] Routine Consulting Provider: Psychiatry Martha Reason for Consult: Pseudodementia VS Dementia? Call Completed: Yes Discharging clinician: Raymond Coronado Anticipated date of discharge: 07/16/16 - Patient Status Disposition: Home Health Service Condition: Fair Functional capacity at discharge: uses cane/walker Overall status at discharge: patient is progressing back to baseline - Discharge Instructions Instructions: Chronic Obstructive Pulmonary Disease (DC), Anemia (GEN) Follow Up With: Juan C Luna CNP [Advanced Practice Nurse] - 08/01/16 1:30 pm Kory Gómez MD [Primary Care Provider] - 07/20/16 9:40 am (Web requested ) - Diet and Activity Activity: as per physical therapy Diet: low fat, low cholesterol, other (renal) Hospital course: Mr. Mueller is a 80 year old male with end-stage renal disease who is admitted for generalized weakness, poor appetite, severe hypokalemia. He would develop an idioventricular rhythm. Additionally his troponins were elevated. He would have an echocardiogram that showed a normal ejection fraction. Was seen and evaluated by cardiology. Did not recommend any invasive testing at this time. We did add a beta yesica and correct electrolytes he had no further arrhythmias throughout his stay. He was also followed by nephrology who managed his peritoneal dialysis. We did have him evaluated by speech and he passed his speech studies. It was noted that the patient had a very depressed mood and also became tearful. He has had frequent hospitalizations over the last few months. 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 We did start him on mirtazapine. And also consulted psychiatry. They did recommend continuing the mirtazapine may increase the dose to 30 mg of patient tolerates this dose without side effects. May also consider adding Cymbalta. However the patient has had significant improvement he is now eating asking for food and making jokes and in good spirits. We will plan to discharge him today. Changes to his medications include the addition of mirtazapine, atorvastatin, and beta yesica for rhythm control. I have discussed the above plan with the patient and his family we will discharge him today with continued home health and home physical therapy. - Time Spent with Patient Total time spent providing and/or coordinating discharge services: Greater than 30 minutes (I spent approximately 40 minutes discharging this patient.) - Constitutional Vitals: Temp Pulse Resp BP Pulse Ox 97.6 F 85 18 169/75 96 07/16/16 06:35 07/16/16 06:35 07/16/16 06:35 07/16/16 06:35 07/16/16 06:35 Exam: General: This is a well-developed well-nourished 80-year-old male who is alert and orientated to person place time situation. Lying in bed appears to be comfortable in no acute distress at this time. HEENT: Head is normocephalic and atraumatic and anicteric sclera, pupils equally round and react to accommodation. Moist mucous membranes. Neck is supple without mass or thyromegaly. Heart: Regular rate and rhythm without murmurs rubs or gallops. Lungs: Clear to auscultation bilaterally. Abdomen: Soft, nondistended, nontender to palpation. Peritoneal catheter is in place and well dressed and clean. Musculoskeletal: Grossly normal for age no gross abnormalities noted. Extremities: There is no clubbing, cyanosis or edema. Integument: No rash or lesions noted. <Karson Baldwin - Last Filed: 07/16/16 15:01> Date of Encounter: 04/15/17 Date of admission: 07/09/16 19:06 Primary care physician: Kory Gómez MD Consults: 07/12/16 14:25 Consult to Occupational Therapy [CONS] Routine Comment: Evaluate, develop and implement POC Consult to Physical Therapy [CONS] Routine Comment: Evaluate, develop and implement POC 07/12/16 15:57 Consult to Nutrition [CONS] Stat Comment: Consulting Provider: NUTRITION Reason for Dietary Consult: Other Other:: patient losing appetite not wanting to eat 07/15/16 10:51 Consult to Psychiatry [CONS] Routine Consulting Provider: Psychiatry [employer] Reason for Consult: Pseudodementia VS Dementia? Call Completed: Yes Hospital course: Mr. Mueller is a 80 year old male - Time Spent with Patient Total time spent providing and/or coordinating discharge services: - Constitutional Vitals: Temp Pulse Resp BP Pulse Ox 97.6 F 85 18 169/75 96 07/16/16 06:35 07/16/16 06:35 07/16/16 06:35 07/16/16 06:35 07/16/16 06:35 - Attending Attestation I examined this patient and my medical decision-making was reviewed with the PILOT SAFETY INSPECTOR/PA/Advanced Practice Nurse/Resident Physician. I agree with the documented findings, disposition and treatment plan as described except to the extent set forth below. Agree with DR. Coronado. D/C home today. D/W patient and his . Psych input noted.
--- NOTE | 2016-07-16 11:42 | Physician Discharge Referral ---
Home Health/Hosp Referral Info Transfer to: Home Health Provider in Charge Post Discharge: PCP - Diagnosis (1) Metabolic encephalopathy Status: Acute (2) Idioventricular rhythm Status: Resolved (3) Failure to thrive Status: Chronic (4) Elevated troponin Status: Chronic (5) End stage renal disease Status: Chronic (6) Weight loss Status: Chronic (7) Muscular deconditioning Status: Chronic (8) Secondary hyperparathyroidism Status: Chronic (9) Anemia Status: Chronic (10) DVT prophylaxis Status: Acute - Respiratory Orders Smoking Cessation: Smoking cessation has been advised. For more information, call the [place] Tobacco Quit Line at 8-305-[facility]-NOW. - Diet/Nutrition Diet/Nutrition Orders: Cardiac (renal diet) - Activity Activity Orders: Ambulate (as per PT/OT) - Services Needed Following services are medically necessary services: Nursing, Home Health Aide, Physical Therapy, Occupational Therapy - Transfer Medications Prescriptions: Atorvastatin [Lipitor] 40 mg PO HS #30 tablet Metoprolol [Lopressor] 25 mg PO BID 60 Days Mirtazapine [Remeron] 15 mg PO HS 30 Days Potassium Chloride 20 meq PO BID 30 Days Home Medications: Allopurinol [Zyloprim 100 MG] 100 mg PO QAM 07/09/16 [History] Aspirin Enteric Coated [Aspirin EC] 81 mg PO QPM 07/09/16 [History] Cinacalcet HCl [Sensipar] 90 mg PO BID 07/09/16 [History] Droxidopa [Northera] 300 mg PO TID 07/09/16 [History] Epoetin Aram [Epogen] 2,000 unit IJ 07/09/16 [History] Fludrocortisone Acetate [Florinef] 0.1 mg PO BID 07/09/16 [History] Loratadine [Claritin] 10 mg PO DAILY 07/09/16 [History] Multivitamin [Multi-Day Vitamins] 1 each PO QPM 07/09/16 [History] Polyethylene Glycol 3350 [Smoothlax] 17 gm PO QAM 07/09/16 [History] Sennosides/Docusate Sodium [Senna Plus] 1 each PO QPM 07/09/16 [History] Sevelamer [Renvela] 800 mg PO TIDWM 07/09/16 [History] Tamsulosin [Flomax] 0.4 mg PO QPM 07/09/16 [History] Atorvastatin [Lipitor] 40 mg PO HS #30 tablet 07/16/16 [Rx] Metoprolol [Lopressor] 25 mg PO BID 60 Days 07/16/16 [Rx] Mirtazapine [Remeron] 15 mg PO HS 30 Days 07/16/16 [Rx] Potassium Chloride 20 meq PO BID 30 Days 07/16/16 [Rx] Allergies/Adverse Reactions: Allergies No Known Allergies Allergy (Verified 07/09/16 13:04) Certification: Further, I certify that my clinical findings support that this patient is homebound (i.e. absences from home require considerable and taxing effort and are for medical reasons or adventism services or infrequently or short duration when for other reasons) because: Homebound Reason: Patient requires assistance of a person or device to safely leave home, Leaving home requires considerable and taxing effort due to condition Attestation: My signature below is to certify that this patient is under my care and that I, or nurse practitioner, or a physician's administrative personal assistant working with me, has a face-to -face encounter with this patient.
== END 2016-07-16 13:29 | disposition home health service (06) | DRG 640 ==
LOC: 2ANU 12:51 → EMEROO 12:51 → 2ANU 15:40 → SUATTDRO 19:06
PROVIDERS: ADMIT Internal Medicine; ATTEND Internal Medicine

== ENCOUNTER 2016-07-23 17:55 | Inpatient (IN) ==
--- NOTE | 2016-07-23 18:33 | Emergency Department Note ---
Disposition Clinical Impression: Delirium due to general medical condition, End stage renal disease Altered mental status Qualifiers: Altered mental status type: transient alteration of awareness Qualified Code(s) : R40.4 - Transient alteration of awareness Depressed Qualifiers: Depression Type: unspecified Qualified Code(s): F32.9 - Major depressive disorder, single episode, unspecified Disposition: Admitted As Inpatient Condition: Fair Time of Disposition: 19:59 General Adult HPI - General Chief complaint: ED Altered Mental Status Stated complaint: AMS Time Seen by Provider: 07/23/16 18:17 Source: EMS Mode of arrival: EMS Limitations: no limitations Nursing Notes Reviewed: Yes Vital Signs Reviewed: Yes - History of Present Illness HPI Narrative: Patient presents emergency room by EMS for evaluation of altered mental status at home. Family is concerned today because he was having persistent auditory and visual hallucinations along with decreased responsiveness. Greater than he has been in and out of the hospital several times over the last 2 weeks he just discharged on average 0 point home without an issue but over the last 3-4 days he slowly declining and similar presentation that he had prior to being admitted last time. Patient is currently alert and oriented on arrival speaking in full sentences is so lethargic but no other acute issues he is denying any other symptoms on presentation except that he feels like he should be Onset (ago): day(s) Radiation: non-radiation Pain Severity: mild Pain Scale: 0 Quality: aching Consistency: now resolved Associated symptoms: Reports: confusion Treatments Prior to Arrival: none - Related Data Home Medications Medication Instructions Recorded Confirmed Allopurinol [Zyloprim 100 MG] 100 mg PO QAM 07/09/16 07/24/16 Aspirin Enteric Coated [Aspirin EC] 81 mg PO QPM 07/09/16 07/24/16 Cinacalcet HCl [Sensipar] 90 mg PO BID 07/09/16 07/24/16 Epoetin Aram [Epogen] 2,000 unit IJ AD 07/09/16 07/24/16 Fludrocortisone Acetate [Florinef] 0.1 mg PO BID 07/09/16 07/24/16 Loratadine [Claritin] 10 mg PO DAILY 07/09/16 07/24/16 Multivitamin [Multi-Day Vitamins] 1 tab PO QPM 07/09/16 07/24/16 Polyethylene Glycol 3350 17 gm PO QAM 07/09/16 07/24/16 [Smoothlax] Sennosides/Docusate Sodium [Senna 1 each PO QPM 07/09/16 07/24/16 Plus] Sevelamer [Renvela] 800 mg PO TIDWM 07/09/16 07/24/16 Tamsulosin [Flomax] 0.4 mg PO QPM 07/09/16 07/24/16 Midodrine HCl 10 mg PO QID 07/24/16 07/24/16 Previous Rx's Medication Instructions Recorded Atorvastatin [Lipitor] 40 mg PO HS #30 tablet 07/16/16 Metoprolol [Lopressor] 25 mg PO BID 60 Days 07/16/16 Potassium Chloride 20 meq PO BID 30 Days 07/16/16 Amoxicillin/Clavulanate [Augmentin] 500 mg PO DAILY #4 tablet 07/26/16 Allergies Allergy/AdvReac Type Severity Reaction Status Date / Time No Known Allergies Allergy Verified 07/23/16 18:06 All systems ED: reviewed and negative except as stated. Constitutional: Reports: weakness. Denies: fever, chills Cardiovascular: Denies: chest pain, palpitations, dyspnea on exertion Respiratory: Denies: cough, dyspnea, wheezes Gastrointestinal: Denies: nausea, vomiting, diarrhea Genitourinary: Denies: dysuria, frequency Musculoskeletal: Denies: back pain Neurological: Reports: weakness. Denies: headache Past Medical History - Past Medical History Attestation: Yes The following information was validated with the patient. Source: patient Medical history: Reports: atrial fibrillation, hypertension, renal disease Psychiatric history: Reports: no psych history - Social History Smoking Status: Former smoker Smokeless Tobacco Status: No Alcohol use: Reports: none Drug use: Reports: none Physical Exam - General Limitations: no limitations General appearance: in no apparent distress, lethargic - Eye Eye exam: Present: normal appearance, PERRL, EOMI - ENT ENT exam: normal exam, normal oropharynx, mucous membranes moist - Chest Chest inspection: Present: normal inspection, symmetric chest wall rise. Absent : tenderness - Respiratory Respiratory exam: Present: normal lung sounds bilaterally. Absent: respiratory distress, wheezes, accessory muscle use - Cardiovascular Cardiovascular exam: Present: regular rate, normal rhythm, normal heart sounds - Abdominal Exam Abdominal exam: Present: soft, Non-Tender, normal bowel sounds, other ( Peritoneal dialysis catheter in place and no signs of redness or swelling no guarding or rigidity and no peritaneal symptoms). Absent: tenderness, distention, guarding, rebound, rigidity, Lozada's sign, Rovsing's sign, tenderness at McBurney's Point - Extremities Exam Extremities exam: Present: normal inspection, full ROM, normal capillary refill. Absent: tenderness, pedal edema - Back Exam Back exam: Present: normal inspection, full ROM. Absent: tenderness - Neurological Exam Neurological exam: Present: alert, oriented X3 - Psychiatric Psychiatric exam: Present: depressed, flat affect - Skin Skin exam: Present: warm, dry, intact, normal color Course Course Narrative: Patient seen and examined at the time of arrival by EMS. See history of present illness. Vital signs during transit were stable. Patient was orthostatic on abdominal cough. Accu-Chek was 90 in transit. No other acute issues during the transportation process. Patient presents from home today for evaluation of agitation, hallucinations, altered mental status. Family showed up directly after EMS. The and the daughter were both at the bedside describing patient's symptoms and presentation. According to them patient is at baseline mentation at this point but he has had intermittent hallucinations auditory and visual. He also has been having issues with dehydration and increased somnolence. Patient does not take any other new medications except for Remeron for which he was provided during his last hospital admission. Patient denies complaints at this point. He is alert oriented 3, no acute strokelike symptoms no signs of facial asymmetry or concern for strokelike symptoms. Cranial nerves II through XII appear to be grossly intact. Lungs are clear heart is regular abdomen soft no guarding no rigidity no peritoneal like symptoms. Peritoneal catheter is in place with no acute pathology. Patient's vital signs reviewed on presentation blood pressure heart rate and pulse ox are all normal. Family was concerned because of the intermittent altered mental status along with the hallucinations the patient might be dehydrated or electrode abnormality again. Currently cared for by an outside provider for his neurology issues including his end-stage renal disease. Patient on physical exam shows no acute issue this point. There is concern for his mental status secondary to complaint saying that he feels like he is . Family says that he has been saying that for several days here now. Patient denies any visual hallucinations at this point and recognizes everybody that is in the room. Concern for underlying etiology noted during treatment course evaluation. Patient did fall on Monday but denied hitting his head. CT of the head chest x-ray labs EKG troponin blood cultures all ordered at this point. Patient does appear to be dry at this time. Mucous membranes are dry his oral mucosa is dry. Disposition pending treatment course. IV access obtained a left before meals with good functioning IV line. Fluids be provided to him in 1 L bolus at this point patient can tolerate fluid hydration at this time. Disposition pending treatment course - Reevaluation(s) Reevaluation #1: Labs reviewed. Baseline evaluation at this time. Multiple chronic abnormalities but all appear to be stable. CT of the head and chest x-ray negative for acute pathology. Patient is still having intermittent episodes of lucency here. Concern is for sundowning or medication abnormality. Patient this point informed of our findings detailed discussion was had with the and the daughter at the bedside. They feel more comfortable at this time with the patient being admitted for evaluation sleep cycle evaluation at this time. The does take care of him primarily at home by herself. Does not feel comfortable to him home at this time. Patient stable admission process to be completed. Hospitals paged Time: 20:00 Reevaluation #2: Dr. Delarosa and I reviewed patient's presentation medical history and recent medication changes. He is going to confirm the availability of inpatient psychiatric evaluation prior to admission. We discussed and I reviewed with them that this appears to be more of a iatrogenic induced psychosis secondary to medication or sundowning. Patient is never had any psychiatric illness prior to. Patient is stable we will continue to monitor his disposition is determined Hospitals works of the patient to medical floor. No other issues at this time. Time: 20:11 Vital Signs Temperature 97.3 F L 07/23/16 17:56 Pulse Rate 71 07/23/16 17:56 Respiratory Rate 18 07/23/16 17:56 Blood Pressure 135/68 07/23/16 17:56 O2 Sat by Pulse Oximetry 95 07/23/16 17:56 Temperature 97.5 F L 07/26/16 12:18 Pulse Rate 96 07/26/16 12:18 Respiratory Rate 20 07/26/16 12:18 Blood Pressure 151/79 07/26/16 12:18 O2 Sat by Pulse Oximetry 92 07/26/16 12:18 Oxygen Delivery Oxygen Delivery Room Air Medical Decision Making - MDM Narrative Medical decision making narrative: Altered mental status, depression, sundowning - Medical Records Medical records reviewed: Yes I reviewed the patient's medical records. - Lab Data Lab results reviewed: Yes I reviewed the patient's lab results. Result diagrams: 07/25/16 03:59 07/26/16 03:47 - Radiology Data Radiology results reviewed: Yes I reviewed the patient's radiology results. CT of the head is negative for acute intracranial pathology. Chest x-ray stable no acute signs of pulmonary infiltrate or infection - EKG Data EKG #1 EKG attestation: Yes I reviewed and interpreted this EKG. EKG shows normal: sinus rhythm, axis, intervals, QRS complexes, ST-T waves Rate: normal Rhythm: NSR [place]/QRS: normal When compared to previous EKG there are: no significant changes Interpretation: no acute changes, unchanged when compared to prior tracing (date ) (07/09/16)
[2016-07-23 18:36] LABS: Basophils # 0.1 K/mcL (0.0-0.2); Basophils % 0.9 %; Eosinophils # 0.4 K/mcL (0.0-0.6); Eosinophils % 4.5 %; Hematocrit 31.7 % (37.5-50.1); Hemoglobin 10.3 g/dL (12.9-16.9); Immature Granulocytes % 0.5 % (0-4); Lymphocytes # 1.4 K/mcL (0.6-4.6); Lymphocytes % 17.9 %; Mean Corpuscular HGB Conc 32.5 g/dL (31.6-35.5); Mean Corpuscular Hemoglobin 31.3 pg (28.0-33.3); Mean Corpuscular Volume 96.4 fL (83.0-100.0); Mean Platelet Volume 9.8 fL (9.4-12.4); Monocytes # 0.9 K/mcL (0.0-1.3); Monocytes % 11.5 %; Neutrophils # 5.1 K/mcL (1.6-8.9); Platelet Count 197 K/mcL (140-400); Red Blood Count 3.29 M/mcL (4.19-5.50); Red Cell Distribution Width 18.2 % (11.5-14.5); Segmented Neutrophils % 64.7 %
[2016-07-23 18:41] LABS: Prothrombin Time 11.1 Seconds (9.4-12.1)
[2016-07-23 18:43] LABS: Activated Partial Thrombo Time 22.3 Seconds (26.0-36.0)
[2016-07-23 18:53] LABS: Albumin/Globulin Ratio 0.6 (1.1-2.2); Bilirubin,Direct 0.2 mg/dL (0.0-0.5); Bilirubin,Indirect 0.1 mg/dL (0.0-1.2); Bilirubin,Total 0.3 mg/dL (0.2-1.2); Calcium 11.9 mg/dL (8.6-10.8); Globulin 3.1 g/dL (2.4-3.5); Potassium 5.4 mEq/L (3.5-4.5); Total Protein 5.1 g/dL (6.0-8.3)
[2016-07-23 18:59] LABS: Reactive Lymphocytes Present (Not Present); Toxic Granulation Present (Not Present)
[2016-07-23 19:01] LABS: Platelet Estimate Normal (Normal)
--- NOTE | 2016-07-23 20:49 | Emergency Department Note ---
START Narrative - START START: I, Kory Garvin, examined this patient and my medical decision-making was reviewed with the WAREHOUSE INVENTORY CLERK/PA/Advanced Practice Nurse/Resident Physician. I agree with the documented findings, disposition and treatment plan as described except to the extent set forth below. 80-year-old male brought in by family for concerns of altered mental status. Patient is awake and alert and able to discuss his symptoms in the emergency department however he repeatedly states that he is "" patient has been having auditory and visual hallucinations over the past 2-3 days which have been worsening for the family. No history of psychiatric illness in the past. No significant changes in his medications. Patient denies fever, chills, nausea , vomiting, headache, rash, chest pain, shortness of breath. Lungs are clear to auscultation. A&O to person, place. No focal deficits noted on exam. Cranial nerve exam intact to examination. No sensory deficits on exam. Laboratory evaluation does not show significant abnormality. does not feel comfortable taking the patient home to follow-up as an outpatient. Patient be admitted to the hospital for further care and evaluation of altered mental status.
[2016-07-23] MEDS ORDERED: Sodium Bicarbonate 50 MEQ/50 ML VIAL IVP ONE (20:52)
[2016-07-23] MEDS ORDERED: Calcium Gluconate 1,000 MG in D5% in Water 100 ML IVPB ONE (20:52)
[2016-07-23] MEDS ORDERED: Naloxone 0.4 MG/ML INJ IVP PRN (21:04)
[2016-07-23] MEDS ORDERED: Acetaminophen 325 MG TABLET PO PRN (21:04)
--- NOTE | 2016-07-23 21:21 | Internal Med History&Physical ---
Date of Encounter: 07/23/16 Time of Encounter: 21:16 Assessment and Plan (1) Altered mental status Current visit: Yes Status: Acute Patient is oriented, and answers questions appropriately, but has occasional confusion and has been having hallucinations. He seems to be aware that they are hallucinations. CT Head negative for acute intracranial abnormality. Differential causes include medication induced, infection, and hypercalcemia. Patient was started on Northera (droxidopa) in May for his orthostatic hypotension, and was started on Remeron during his last hospitalization for depression. Both medications can cause side effects of confusion and hallucinations. Will hold. Patient also with hypercalcemia which is another possible cause of his symptoms. One time dose of calcitonin ordered. Patient afebrile without elevated WBC but will check UA as well. Qualifiers: Altered mental status type: transient alteration of awareness Qualified Code(s): R40.4 - Transient alteration of awareness (2) Hypercalcemia Current visit: Yes Status: Acute Calcium of 11.9. His calcium was elevated during previous hospitalization as well. Previous PTH elevated > 700. one time dose of calcitonin SQ ordered Recheck PTH with morning labs NM scan of parathyroid (3) Hyperkalemia Current visit: Yes Status: Acute Potassium of 5.4. Patient was on 20mEq of potassium BID at home after previous hospitalization for hypokalemia. Calcium gluconate and sodium bicarb ordered. Hold home potassium. Nephrology consulted, spoke with Dr. Boyer. (4) End stage renal disease Current visit: Yes Status: Chronic ESRD on peritoneal dialysis. Family reports patient does PD exchanges every 6 hours, and he was scheduled to drain and exchange at 5:30pm, but has not done that yet. BUN/Cr elevated to 43/9.05, potassium elevated to 5.4. Nephrology consulted, Discussed with Dr. Boyer, who will order dialysis treatments. (5) DVT prophylaxis Current visit: No Status: Acute anti-embolic stockings Heparin 5000u SQ TID Internal Medicine - H&P: HPI Chief complaint: Mental status change Admitted From: Emergency Dept Plans for Post Hospital Care: Home History of present illness: Mr. Mueller is a 80 year old male with afib, orthostatic hypotension, ESRD on PD, presented to the ED today due to mental status change. Patient's family reports he has been having auditory and visual hallucinations. They report he has seemed to get confused over the last several days and has been getting worse , today was the first day he was having hallucinations. Patient denies any headache, lightheadedness, chest pain, shortness of breath, numbness or tingling , fever, chills, sweats, abdominal pain. Patient reports he feels okay but reports he is experiencing things that aren't there and states he feels like he' s "". Patient was discharged on 07/16 after being admitted for mental status change, dehydration and hypokalemia. He was sent home on potassium supplements as well as started on Remeron for depression. Evaluation in the ED revealed hyperkalemia with potassium of 5.4, hypercalcemia with calcium of 11.9 , BUN elevated to 43 and Cr 9.05. Troponin was elevated to 0.34 but is chronically elevated in the setting of ESRD and is actually trending down. Head CT revealed no acute intracranial abnormality, diffuse cerebral atrophy with chronic small vessel ischemic disease. On exam, patient alert and oriented, answers questions appropriately, and seems to be aware that he is occasionally seeing things that aren't there. Heart has regular rate and rhythm, lungs are clear bilaterally, mucous membranes are dry, abdomen is non-tender. Past Med Surg Social Fam HX - Past Medical History Medical history: atrial fibrillation, hypertension, renal disease Psychiatric history: no psych history - Past Surgical History Surgical History: knee replacement, orthopedic, other (back surgery), other (PD catheter placement) - Social History Smoking Status: Former smoker Smokeless Tobacco Status: No Alcohol use: none Drug use: none Internal Medicine - H&P: Meds Allopurinol [Zyloprim 100 MG] 100 mg PO QAM 07/09/16 [History] Aspirin Enteric Coated [Aspirin EC] 81 mg PO QPM 07/09/16 [History] Cinacalcet HCl [Sensipar] 90 mg PO BID 07/09/16 [History] Droxidopa [Northera] 300 mg PO TID 07/09/16 [History] Epoetin Aram [Epogen] 2,000 unit IJ 07/09/16 [History] Fludrocortisone Acetate [Florinef] 0.1 mg PO BID 07/09/16 [History] Loratadine [Claritin] 10 mg PO DAILY 07/09/16 [History] Multivitamin [Multi-Day Vitamins] 1 each PO QPM 07/09/16 [History] Polyethylene Glycol 3350 [Smoothlax] 17 gm PO QAM 07/09/16 [History] Sennosides/Docusate Sodium [Senna Plus] 1 each PO QPM 07/09/16 [History] Sevelamer [Renvela] 800 mg PO TIDWM 07/09/16 [History] Tamsulosin [Flomax] 0.4 mg PO QPM 07/09/16 [History] Atorvastatin [Lipitor] 40 mg PO HS #30 tablet 07/16/16 [Rx] Metoprolol [Lopressor] 25 mg PO BID 60 Days 07/16/16 [Rx] Mirtazapine [Remeron] 15 mg PO HS 30 Days 07/16/16 [Rx] Potassium Chloride 20 meq PO BID 30 Days 07/16/16 [Rx] Allergies No Known Allergies Allergy (Verified 07/23/16 18:06) All Systems PM: A 10-system review of systems was performed and is negative for pertinent findings except as documented above in the HPI. - Constitutional Constitutional: no chills, no fever(s), no night sweats - EENT Eyes: no change in vision, no discharge, no pain, no photophobia Ears: no ear discharge, no ear pain, no tinnitus Nose, mouth and throat: no dysphagia, no nasal discharge, no neck pain, no sore throat - Cardiovascular Cardiovascular ROS IM: no chest pain, no diaphoresis, no dyspnea, no lightheadedness, no palpitations, no syncope - Respiratory Respiratory: no cough, no dyspnea, no wheezing, no excessive phlegm production - Gastrointestinal Gastrointestinal: no abdominal pain, no diarrhea, no hematemesis, no hematochezia, no melena, no nausea, no vomiting - Musculoskeletal Musculoskeletal ROS IM: no numbness, no tingling - Integumentary Integumentary IM: no rash, no unusual bruising - Neurological Neurological ROS: confusion, other visual disturbances, no convulsions, no focal weakness, no numbness, no tingling, no tremor(s) - Hematologic/Lymphatic Hematologic/Lymphatic: no easy bruising - Constitutional Vitals: Temp Pulse Resp BP Pulse Ox 97.3 F L 74 14 137/61 98 07/23/16 17:56 07/23/16 18:38 07/23/16 18:38 04/22/17 18:38 07/23/16 18:38 General appearance: Present: A&O X 3, pleasant - Head Head exam: Present: atraumatic, normocephalic - Eye Eye exam: Present: PERRL, conjuntiva pink, sclera anicteric Pupils: Present: PERRL - ENT ENT exam: Present: mucous membranes dry - Neck Neck exam general surgery: Present: supple, trachea midline. Absent: lymphadenopathy - Respiratory Respiratory exam: Present: CTAB. Absent: accessory muscle use, rales, rhonchi, wheezes - Cardiovascular Cardiovascular exam: Present: RRR, +S1, +S2. Absent: diastolic murmur, gallop, rubs, systolic murmur - GI/Abdominal GI/Abdominal exam: Present: normal bowel sounds, soft, no peritoneal signs. Absent: distended, tenderness Additional comments: PD catheter in place, site without erythema or tenderness. - Extremities Exam Extremities exam: Present: warm, radial pulses palpable and symetrical. Absent : calf tenderness, cyanotic, pedal edema - Neurological Exam Neurological exam: Present: CN II-XII intact, oriented X3, no focal deficits. Absent: facial droop, speech deficit - Skin Skin exam: Present: dry, intact Internal Med - H&P Results - Labs CBC & Chem 7: 07/23/16 18:20 07/23/16 18:20 Labs: Short CBC 07/23/16 Range/Units 18:20 WBC 7.9 (4.3-11.1) K/mcL Hgb 10.3 L (12.9-16.9) g/dL Hct 31.7 L (37.5-50.1) % Plt Count 197 (140-400) K/mcL Neutrophils # 5.1 (1.6-8.9) K/mcL BMP 07/23/16 18:20 Sodium 136 Potassium 5.4 H Chloride 97 L Carbon Dioxide 30 H BUN 43 H Creatinine 9.05 H Glucose 97 Calcium 11.9 H Cardiac Enzymes 07/23/16 Range/Units 18:20 Troponin I 0.34 H* (0-0.03) ng/mL Liver Function 07/23/16 Range/Units 18:20 Total Bilirubin 0.3 (0.2-1.2) mg/dL Direct Bilirubin 0.2 (0.0-0.5) mg/dL AST 23 (5-34) Units/L ALT 15 (0-55) Units/L Alkaline Phosphatase 98 (38-126) Units/L Albumin 2.0 L (3.5-5.0) g/dL - Impressions ITS Impressions Chest X-Ray 07/23/16 18:17 IMPRESSION: 1. No acute cardiopulmonary disease identified. D/ / Erlin Dale MD / Erlin Dale MD Interpreting Provider: Erlin Dale MD Head CT 07/23/16 18:18 IMPRESSION: 1. No acute intracranial abnormality. 2. Diffuse cerebral atrophy with chronic small vessel ischemic disease. 3. Bilateral mastoiditis left greater than right. D/ / Renaldo Saxena MD / Renaldo Saxena MD Interpreting Provider: Renaldo Saxena MD - Diagnostic Studies Chest x-ray Additional comments: Chest X-Ray 07/23/16 18:17 IMPRESSION: 1. No acute cardiopulmonary disease identified. D/ / Erlin Dale MD / Erlin Dale MD Interpreting Provider: Erlin Dale MD CT scan - head Additional comments: Head CT 07/23/16 18:18
[2016-07-23] MEDS ORDERED: Calcitonin-Salmon, Synthetic 400 UNIT/2 ML VIAL SQ ONE (21:32)
--- NOTE | 2016-07-23 21:41 | Event Note ---
Date of Encounter: 07/23/16 Time of Encounter: 21:36 Patient seen and examined with HARDENER HELPER. ESRD on periotneal dialysis presents again with confusion. Culprits include Northera which was started in May after which family started noticing these symptoms. so we will stop this drug. Also we will DC remeron recently started. He has mild-mod hypercalcemia and this may also be responsible. 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 Because he may be symptomatic from that I will give 1 dose of calcitonin. Nephrology to follow for dialysis. Check peritoneal fluid to r/o infection
[2016-07-23 23:22] LABS: Calcium 11.7 mg/dL (8.6-10.8); Potassium 5.5 mEq/L (3.5-4.5)
[2016-07-24] MEDS: Perit. Dialysis with Dex 1.5 % 2,000 ML PERITONEAL SCH ×5 (01:13→19:56)
[2016-07-24 01:22] LABS: Basophils # 0.1 K/mcL (0.0-0.2); Basophils % 1.1 %; Eosinophils # 0.4 K/mcL (0.0-0.6); Eosinophils % 4.9 %; Hematocrit 31.2 % (37.5-50.1); Immature Granulocytes % 0.5 % (0-4); Lymphocytes # 1.5 K/mcL (0.6-4.6); Lymphocytes % 20.4 %; Mean Corpuscular HGB Conc 32.1 g/dL (31.6-35.5); Mean Corpuscular Hemoglobin 30.7 pg (28.0-33.3); Mean Corpuscular Volume 95.7 fL (83.0-100.0); Mean Platelet Volume 9.4 fL (9.4-12.4); Monocytes # 0.9 K/mcL (0.0-1.3); Monocytes % 11.7 %; Neutrophils # 4.5 K/mcL (1.6-8.9); Platelet Count 176 K/mcL (140-400); Red Blood Count 3.26 M/mcL (4.19-5.50); Red Cell Distribution Width 17.9 % (11.5-14.5); Segmented Neutrophils % 61.4 %
[2016-07-24 01:38] LABS: Calcium 11.7 mg/dL (8.6-10.8); Potassium 5.4 mEq/L (3.5-4.5)
--- NOTE | 2016-07-24 11:29 | Internal Med Progress Note ---
Date of Encounter: 07/24/16 Time of Encounter: 11:29 - Assessment and plan (1) Altered mental status Current Visit: Yes Status: Acute Assessment and plan: Acute on chronic, ongoing for at least a month with recent exacerbation Head CT no acute processes save for mastoiditis Possibly from dehydration Neurologist evaluated patient during previous admission two weeks ago Will consult prn Qualifiers: Altered mental status type: transient alteration of awareness Qualified Code(s): R40.4 - Transient alteration of awareness (2) Mastoiditis Current Visit: Yes Status: Acute Assessment and plan: patient with ear symptoms and Head CT finding of mastoiditis Start renal dosing cefepime q24hr Qualifiers: Laterality: bilateral Qualified Code(s): H70.93 - Unspecified mastoiditis, bilateral (3) Dehydration Current Visit: Yes Status: Acute Assessment and plan: Evidence of dehydration with increased PD output, elevated calcium and K and HB , Elevated CR and BUN more than baseline GIve 1L IVF over 10 hrs Monitor closely (4) End stage chronic kidney disease Current Visit: Yes Status: Chronic Assessment and plan: Nephrology input appreciated (5) Elevated troponin Current Visit: Yes Status: Chronic Assessment and plan: Chronic, stable, at baseline (6) Atrial fibrillation Current Visit: Yes Status: Chronic Assessment and plan: HR controlled Not on AC Continue home meds Qualifiers: Atrial fibrillation type: persistent Qualified Code(s): I48.1 - Persistent atrial fibrillation (7) COPD (chronic obstructive pulmonary disease) Current Visit: Yes Status: Chronic Assessment and plan: Not wheezing at this time Qualifiers: COPD type: unspecified COPD Qualified Code(s): J44.9 - Chronic obstructive pulmonary disease, unspecified (8) Anemia in chronic kidney disease (CKD) Current Visit: Yes Status: Chronic Assessment and plan: Chronic stable (9) Chronic orthostatic hypotension Current Visit: No Status: Acute (10) Secondary hyperparathyroidism Current Visit: Yes Status: Chronic Assessment and plan: Chronic stable, per family all parathyroid and thyroid funtion tests and scans have not changed since 03/2017 Will not pursue any more work up Increase cinacalcet (11) Hyperkalemia Current Visit: Yes Status: Acute Assessment and plan: Should improve with kayexalate and IVF No EKG changes Continue to monitor - Subjective Interval history: Initial encounter 80 M with ESRD and chronic orthostatic hypotension Multiple hospital visits for AMS Seen at bedside deeply asleep with family Hx from and daughter report patient has been bedbound for ~3 months due to orthostatic hypotension His mental status has been worsening for ~1 month and recently in the past week , he has been complaining of hearing difficulty and his spouse also believes he is havin gmore output from his PD than usual Work up reveal bilateral mastoiditis on Head CT L>R, creatinine and BUN > 100% elevated than prior baseline, as well as patient's HB one point higher Patient is also possibly dehydrated Peritoneal fluid and blood culture has been sent - Constitutional Vitals: Temp Pulse Resp BP Pulse Ox 97.4 F L 93 18 127/71 95 07/24/16 11:15 07/24/16 11:15 07/24/16 11:15 07/24/16 11:15 07/24/16 11:15 General appearance: Present: A&O X 2, pleasant - Head Head exam: Present: atraumatic, normocephalic - Eye Eye exam: Present: PERRL, conjuntiva pink, sclera anicteric Pupils: Present: PERRL - Neck Neck exam general surgery: Present: supple, trachea midline. Absent: lymphadenopathy - Respiratory Respiratory exam: Present: CTAB. Absent: accessory muscle use, rales, rhonchi, wheezes - Cardiovascular Cardiovascular exam: Present: RRR, +S1, +S2. Absent: diastolic murmur, gallop, rubs, systolic murmur - GI/Abdominal GI/Abdominal exam: Present: normal bowel sounds, soft, no peritoneal signs. Absent: distended, tenderness Additional comments: PD site clean and dry - Extremities Exam Extremities exam: Present: warm, radial pulses palpable and symetrical. Absent : calf tenderness, cyanotic, pedal edema - Neurological Exam Neurological exam: Present: CN II-XII intact, no focal deficits. Absent: alert , oriented X3, pronater drift, facial droop, speech deficit - Skin Skin exam: Present: dry, intact Internal Medicine: Result - Labs CBC & Chem 7: 07/24/16 00:50 07/24/16 00:50 Labs: Short CBC 07/24/16 Range/Units 00:50 WBC 7.3 (4.3-11.1) K/mcL Hgb 10.0 L (12.9-16.9) g/dL Hct 31.2 L (37.5-50.1) % Plt Count 176 (140-400) K/mcL Neutrophils # 4.5 (1.6-8.9) K/mcL BMP 07/23/16 07/24/16 23:01 00:50 Sodium 134 L 135 L Potassium 5.5 H 5.4 H Chloride 98 98 Carbon Dioxide 27 28 BUN 45 H 46 H Creatinine 8.86 H 8.91 H Glucose 124 H 98 Calcium 11.7 H 11.7 H Cardiac Enzymes 07/24/16 07/24/16 Range/Units 00:50 06:22 Troponin I 0.32 H* 0.32 H* (0-0.03) ng/mL - ABG Interpretation ABG results: PT/INR, D-dimer PT 11.1 Seconds (9.4-12.1) 07/23/16 18:20 Consult Discharge Plan - Plan Referrals: Kory Gómez MD [Primary Care Provider] - (WEB REQUEST SENT ON 07/24/16)
--- NOTE | 2016-07-24 12:38 | Nephrology Consult Note ---
Date of Encounter: 07/24/16 Time of Encounter: 11:49 Assessment and Plan (1) End stage chronic kidney disease Current Visit: No Status: Chronic Continue CAPD 4 exchanges per day. Uses 1.5% low calcium pd fluid. UF for 1 L in the last exchange. D/W nurse informed to document the PD ultrafiltration accurately (2) Chronic orthostatic hypotension Current Visit: No Status: Acute BPs currently stable. Hold metoprolol. Probably Florinef is not quite effective in the setting of ESRD. resume midodrine and northera. Patient had urinary retention when tamsulosin was DC'd couple of months ago as per (3) Hypercalcemia associated with chronic dialysis Current Visit: Yes Status: Acute PTH level is elevated. He received a dose of calcitonin. Unable to use bisphosphonates given the ESRD. 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 Increase the dose of cinacalcet 90 mg 3 times a day. Follow-up parathyroid scan. cont Renvela. Hyperkalemia, hold potassium supplements (4) Anemia in chronic kidney disease (CKD) Current Visit: No Status: Acute Continue Procrit 2000 units every week. Check iron stores History of Present Illness - Chief Complaint esrd on peritoneal dialysis - History of Present Illness 8o years old male brought to the ER by family members for episodes of confusion 3-4 days duration. Had visual hallucinations in that he saw people on the neal the day of admission. Vital signs were Stable in the ER. Chest x-ray negative for congestion or pneumonia. CT head; diffuse cerebral atrophy, bilateral mastoiditis. Labs were significant for serum potassium 5.4, calcium 11.9, albumin 2. A liter of IV fluid and calcitonin were given. He was admitted to the hospital a week ago for generalized weakness poor appetite and hypokalemia. Diagnosed with dehydration and depression. Remeron, atorvastatin and metoprolol were started on discharge, Mididrine was discontinued History of orthostatic hypotension, A. fib and ESRD. He is on peritoneal dialysis. He was on cycler at home with midday exchange. PD fluid was changed to low calcium in May because of elevated serum calcium. Last week CCPD was changed to CAPD to help decrease the ultrafiltration. He is followed by [facility]. Has trouble with orthostatic hypotension since February of last year, unable to ambulate. Had admissions to [facility] and [facility] for the same and w/U was unremarkable as per Past Med Surg Social Fam HX - Past Medical History Medical history: atrial fibrillation, dialysis, hypertension, renal disease Psychiatric history: no psych history - Past Surgical History Surgical History: knee replacement, orthopedic, other, other - Social History Smoking Status: Former smoker Smokeless Tobacco Status: No Alcohol use: none Drug use: none - Family History Mother Name: Mariana Mueller Living Status: Age at : 93 Cause of : Pneumonia Medications and Allergies Allopurinol [Zyloprim 100 MG] 100 mg PO QAM 07/09/16 [History] Aspirin Enteric Coated [Aspirin EC] 81 mg PO QPM 07/09/16 [History] Cinacalcet HCl [Sensipar] 90 mg PO BID 07/09/16 [History] Epoetin Aram [Epogen] 2,000 unit IJ AD 07/09/16 [History] Fludrocortisone Acetate [Florinef] 0.1 mg PO BID 07/09/16 [History] Loratadine [Claritin] 10 mg PO DAILY 07/09/16 [History] Multivitamin [Multi-Day Vitamins] 1 tab PO QPM 07/09/16 [History] Polyethylene Glycol 3350 [Smoothlax] 17 gm PO QAM 07/09/16 [History] Sennosides/Docusate Sodium [Senna Plus] 1 each PO QPM 07/09/16 [History] Sevelamer [Renvela] 800 mg PO TIDWM 07/09/16 [History] Tamsulosin [Flomax] 0.4 mg PO QPM 07/09/16 [History] Atorvastatin [Lipitor] 40 mg PO HS #30 tablet 07/16/16 [Rx] Metoprolol [Lopressor] 25 mg PO BID 60 Days 07/16/16 [Rx] Potassium Chloride 20 meq PO BID 30 Days 07/16/16 [Rx] Midodrine HCl 10 mg PO QID 07/24/16 [History] Allergies No Known Allergies Allergy (Verified 07/23/16 18:06) Review of Systems All Systems review (narrative): GI; by mouth intake has been fair. Lost about 20-30 pounds since February of last year. h/o constipation . Makes minimal urine, had trouble with urine retention when tamsulosin was held a few months ago [employer]; he is oriented to self, place and person but not to time. Rather slow to respond All other review of symptoms is negative Exam - Vital Signs Vital signs: Initial Vital Signs Temp Pulse Resp BP Pulse Ox 97.3 F L 71 18 135/68 95 07/23/16 17:56 07/23/16 17:56 07/23/16 17:56 07/23/16 17:56 07/23/16 17:56 Vital Signs - Last 8 Hours Temp Pulse Resp BP Pulse Ox 07/24/16 11:15 97.4 F L 93 18 127/71 95 07/24/16 07:22 98 F 104 18 111/64 96 07/24/16 05:18 97.7 F 104 18 96/62 98 Intake and Output 07/23/16 07/24/16 07/24/16 23:59 07:59 15:59 Intake Total 150 / 150 120 / 120 Output Total 3000 / 3000 0 / 0 Balance -3000 / -3000 150 / 150 120 / 120 Intake: Oral 150 / 150 120 / 120 Output: Urine 0 / 0 Total Dialysis Output 3000 / 3000 Other: Meal Breakfast Percent of Meal Consumed 50% Total Peritoneal Dialysis 100 Output Weight 70 kg 70 kg 71.2 kg Patient Weight 07/24/16 23:59 Weight 71.2 kg - General Appearance Exam: CVS; s1s2 present, regular, no murmurs RESP; good air entry, clear to auscultation ABD; soft, NT, BS present, no organomegaly, epigastric bruit present EXT; no edema, DP pulses palpable. [employer]; alert oriented to self and person and place but not to time, CN grossly intact Results - Lab Results 07/24/16 00:50 07/24/16 00:50 Most recent lab results Calcium 11.7 mg/dL (8.6-10.8) H 07/24/16 00:50 Phosphorus 5.0 mg/dL (2.3-4.7) H 07/23/16 23:01 Magnesium 2.0 mg/dL (1.6-2.6) 07/23/16 23:01 Consult Discharge Plan - Plan Referrals: Kory Gómez MD [Primary Care Provider] - (WEB REQUEST SENT ON 07/24/16)
[2016-07-24] MEDS ORDERED: 0.9 % Sodium Chloride 1,000 ML IVC ONE (13:54)
[2016-07-24] MEDS ORDERED: Cefepime HCl 1,000 MG in D5% in Water (Mini-Bag+) 100 ML IVPB SCH (14:00)
[2016-07-24] MEDS: Aspirin Enteric Coated 81 MG Tablet PO SCH (17:04)
[2016-07-24] MEDS: *HR* Heparin 5,000 UNIT/ML VIAL SQ SCH (17:11)
--- NOTE | 2016-07-24 20:33 | Electrocardiograph Report ---
[place] [id number] Test Date: 2016-07-23 Pat Name: Raymond Mueller Department: 105 Room: 2A35 Gender: M Risk Modeler: CATALINO : 1935 Requested By: Ino Chatterjee Order Number: [id number] Reading MD: Oneal Moran MD Measurements Intervals [place] Rate: 73 P: 55 OR: 196 QRS: -16 QRSD: 108 T: 78 QT: 370 QTc: 395 Interpretive Statements SINUS RHYTHM INFERIOR MYOCARDIAL INFARCTION [40+ ms Q WAVE AND/OR ST/T ABNORMALITY IN II/aVF], OF INDETERMINATE AGE ANTEROSEPTAL MYOCARDIAL INFARCTION [40+ ms Q WAVE IN V1-V4], OF INDETERMINATE AGE Electronically Signed On 07-24-2016 20:31:26 EDT by Oneal Moran MD
[2016-07-25] MEDS: Perit. Dialysis with Dex 1.5 % 2,000 ML PERITONEAL SCH ×5 (00:09→20:58)
[2016-07-25 05:01] LABS: Calcium 10.6 mg/dL (8.6-10.8); Magnesium 1.5 mg/dL (1.6-2.6)
[2016-07-25 05:17] LABS: Albumin 1.6 g/dL (3.5-5.0); Potassium 4.1 mEq/L (3.5-4.5)
[2016-07-25 05:19] LABS: Basophils # 0.1 K/mcL (0.0-0.2); Eosinophils # 0.4 K/mcL (0.0-0.6); Eosinophils % 5.5 %; Hematocrit 28.5 % (37.5-50.1); Immature Granulocytes % 0.4 % (0-4); Lymphocytes # 1.6 K/mcL (0.6-4.6); Lymphocytes % 22.8 %; Mean Corpuscular HGB Conc 31.6 g/dL (31.6-35.5); Mean Corpuscular Hemoglobin 30.4 pg (28.0-33.3); Mean Corpuscular Volume 96.3 fL (83.0-100.0); Mean Platelet Volume 10.2 fL (9.4-12.4); Monocytes # 0.8 K/mcL (0.0-1.3); Monocytes % 11.6 %; Neutrophils # 4.2 K/mcL (1.6-8.9); Platelet Count 167 K/mcL (140-400); Red Blood Count 2.96 M/mcL (4.19-5.50); Red Cell Distribution Width 17.5 % (11.5-14.5); Segmented Neutrophils % 58.7 %
[2016-07-25] MEDS: *HR* Heparin 5,000 UNIT/ML VIAL SQ SCH ×2 (06:10→17:23)
[2016-07-25 08:32] LABS: Bilirubin,Urine Negative (Negative); Blood,Urine Trace-intact (Negative); Clarity,Urine Slightly Cloudy (Clear); Color,Urine Yellow (Yellow); Glucose,Urine (UA) 100 mg/dL (Normal); Ketones,Urine Negative (Negative); Leukocyte Esterase,Urine Trace (Negative); Nitrite,Urine Negative (Negative); PH,Urine 8.5 pH Units (5.0-8.0); Protein,Urine >=300 mg/dL (Neg-Trace); Urobilinogen,Urine Normal (Normal)
[2016-07-25 08:40] LABS: Bacteria,Urine Few per hpf (None-Few)
--- NOTE | 2016-07-25 09:43 | Nephrology Progress Note ---
Date of Encounter: 07/25/16 Time of Encounter: 09:41 - Assessment and Plan (1) End stage chronic kidney disease Current Visit: Yes Status: Chronic Patient has end-stage renal disease. He is maintained on peritoneal dialysis. From that standpoint he remains stable. Patient has persistent hypercalcemia in the setting of markedly elevated PTH despite Sensipar. 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 His Sensipar was increased yesterday and his calcium appears to be better today. We will continue to monitor him closely. I did inform the that if his hypercalcemia continues to be an issue he may need to consider parathyroidectomy in the future. (2) Hypercalcemia Current Visit: Yes Status: Acute (3) Confusion Current Visit: Yes Status: Acute (4) Anemia in chronic kidney disease (CKD) Current Visit: Yes Status: Chronic (5) Secondary hyperparathyroidism Current Visit: Yes Status: Chronic Subjective Interval history: The patient's reports that the patient is less confused this morning. His calcium is improved on the 10.6. PTH remains very high. So far cultures are negative. His Sensipar was increased to 90 mg 3 times a day yesterday. Objective - Vital Signs Vital signs: Vital Signs Temp Pulse Resp BP Pulse Ox 07/25/16 07:13 98.2 F 71 16 114/60 96 07/25/16 04:40 97.5 F L 94 18 124/68 95 07/25/16 00:26 97.5 F L 88 18 152/76 92 07/24/16 19:26 97.5 F L 88 18 143/65 99 07/24/16 16:20 98.5 F 87 18 124/67 96 Intake and Output 07/24/16 07/25/16 07/25/16 23:59 07:59 15:59 Intake Total 0 / 0 240 / 240 Balance 0 / 0 240 / 240 Intake: Oral 0 / 0 240 / 240 Other: Meal Breakfast Percent of Meal Consumed 25% Total Peritoneal Dialysis -600 -60 Output Stool Size Moderate Stool Consistency soft Stool Characteristics Foamy Stool Color Brown # Bowel Movements 1 Weight 70.3 kg 71.82 kg 70.8 kg Patient Weight 07/25/16 23:59 Weight 70.8 kg - General Appearance Exam: Patient is alert. He is oriented to person. He recognizes his . He is in no acute distress. Vital signs are stable. He is afebrile. Heart regular rate and rhythm. Lungs diminished breath sounds otherwise clear. Abdomen is soft. There is no tenderness. Catheter exit site is intact. There is no peripheral edema. - Lab 07/25/16 03:59 07/25/16 03:59 Most recent lab results Calcium 10.6 mg/dL (8.6-10.8) 07/25/16 03:59 Phosphorus 5.0 mg/dL (2.3-4.7) H 07/25/16 03:59 Magnesium 1.5 mg/dL (1.6-2.6) L 07/25/16 03:59 Consult Discharge Plan - Plan Referrals: Kory Gómez MD [Primary Care Provider] - (WEB REQUEST SENT ON 07/24/16)
--- NOTE | 2016-07-25 10:35 | Internal Med Progress Note ---
Date of Encounter: 07/25/16 Time of Encounter: 10:35 - Assessment and plan (1) Altered mental status Current Visit: Yes Status: Acute Assessment and plan: Acute on chronic, ongoing for at least a month with recent exacerbation Head CT no acute processes save for mastoiditis Multifactorial: Possibly from dehydration, hypercalcemia, infection including UTI There is no current necessity for neurology eval at this time Patient is improving Qualifiers: Altered mental status type: transient alteration of awareness Qualified Code(s): R40.4 - Transient alteration of awareness (2) Mastoiditis Current Visit: Yes Status: Acute Assessment and plan: patient with ear symptoms and Head CT finding of mastoiditis Continue renal dosing cefepime q24hr Qualifiers: Laterality: bilateral Qualified Code(s): H70.93 - Unspecified mastoiditis, bilateral (3) Dehydration Current Visit: Yes Status: Acute Assessment and plan: Evidence of dehydration with increased PD output, elevated calcium and K and HB , Elevated CR and BUN more than baseline Continue liberal fluid intake (4) End stage chronic kidney disease Current Visit: Yes Status: Chronic Assessment and plan: Nephrology input appreciated (5) Elevated troponin Current Visit: Yes Status: Chronic Assessment and plan: Chronic, stable, at baseline (6) Atrial fibrillation Current Visit: Yes Status: Chronic Assessment and plan: HR controlled Not on AC Continue home meds Qualifiers: Atrial fibrillation type: persistent Qualified Code(s): I48.1 - Persistent atrial fibrillation (7) COPD (chronic obstructive pulmonary disease) Current Visit: Yes Status: Chronic Assessment and plan: Not wheezing at this time Qualifiers: COPD type: unspecified COPD Qualified Code(s): J44.9 - Chronic obstructive pulmonary disease, unspecified (8) Anemia in chronic kidney disease (CKD) Current Visit: Yes Status: Chronic Assessment and plan: Chronic stable (9) Chronic orthostatic hypotension Current Visit: No Status: Acute (10) Secondary hyperparathyroidism Current Visit: Yes Status: Chronic Assessment and plan: Chronic stable, per family all parathyroid and thyroid funtion tests and scans have not changed since 03/2017 Will not pursue any more work up Increase cinacalcet, continue same Renal input appreciated (11) Hyperkalemia Current Visit: Yes Status: Acute Assessment and plan: Should improve with kayexalate and IVF No EKG changes Continue to monitor (12) Abnormal urine finding Current Visit: Yes Status: Acute Assessment and plan: Follow UA Patient is already on Cefepime - Subjective Interval history: 80 M with ESRD and chronic orthostatic hypotension Multiple hospital visits for AMS Seen at bedside at the bedside he is being managed for AMS Today, patient is awake, and alert and oriented to time, place and person he denies any new complains His also acknowledges that his mental status is improved - Constitutional Vitals: Temp Pulse Resp BP Pulse Ox 98.2 F 71 16 114/60 96 07/25/16 07:13 07/25/16 07:13 07/25/16 07:13 07/25/16 07:13 07/25/16 07:13 General appearance: Present: A&O X 3, pleasant - Head Head exam: Present: atraumatic, normocephalic - Eye Eye exam: Present: PERRL, conjuntiva pink, sclera anicteric Pupils: Present: PERRL - Neck Neck exam general surgery: Present: supple, trachea midline. Absent: lymphadenopathy - Respiratory Respiratory exam: Present: CTAB. Absent: accessory muscle use, rales, rhonchi, wheezes - Cardiovascular Cardiovascular exam: Present: RRR, +S1, +S2. Absent: diastolic murmur, gallop, rubs, systolic murmur - GI/Abdominal GI/Abdominal exam: Present: normal bowel sounds, soft, no peritoneal signs. Absent: distended, tenderness Additional comments: PD site is clean - Extremities Exam Extremities exam: Present: warm, radial pulses palpable and symetrical. Absent : calf tenderness, cyanotic, pedal edema - Neurological Exam Neurological exam: Present: alert, CN II-XII intact, oriented X3, no focal deficits. Absent: pronater drift, facial droop, speech deficit - Skin Skin exam: Present: dry, intact Internal Medicine: Result - Labs CBC & Chem 7: 07/25/16 03:59 07/25/16 03:59 Labs: Short CBC 07/25/16 Range/Units 03:59 WBC 7.1 (4.3-11.1) K/mcL Hgb 9.0 L (12.9-16.9) g/dL Hct 28.5 L (37.5-50.1) % Plt Count 167 (140-400) K/mcL Neutrophils # 4.2 (1.6-8.9) K/mcL BMP 07/25/16 03:59 Sodium 135 L Potassium 4.1 D Chloride 99 Carbon Dioxide 30 H BUN 37 H Creatinine 7.89 H Glucose 101 H Calcium 10.6 Liver Function 07/25/16 Range/Units 03:59 Albumin 1.6 L (3.5-5.0) g/dL Urine 07/25/16 Range/Units 07:30 Urine Color Yellow (Yellow) Urine Clarity Slightly Cloudy A (Clear) Urine pH 8.5 H (5.0-8.0) pH Units Ur Specific [place] 1.020 (1.010-1.025) Urine Protein >=300 H (Neg-Trace) mg/dL Urine Glucose (UA) 100 H (Normal) mg/dL - ABG Interpretation ABG results: PT/INR, D-dimer PT 11.1 Seconds (9.4-12.1) 07/23/16 18:20 Consult Discharge Plan - Plan Referrals: Kory Gómez MD [Primary Care Provider] - 08/02/16 10:00 am (Pleas follow up as schedule...)
[2016-07-25] MEDS: Cefepime HCl 2,000 MG in D5% in Water (Mini-Bag+) 100 ML IVPB SCH ×2 (15:39→16:22)
[2016-07-25] MEDS: Aspirin Enteric Coated 81 MG Tablet PO SCH (17:23)
[2016-07-26] MEDS: Perit. Dialysis with Dex 1.5 % 2,000 ML PERITONEAL SCH ×3 (00:28→11:54)
[2016-07-26 04:11] LABS: Albumin/Globulin Ratio 0.6 (1.1-2.2); Bilirubin,Total 0.3 mg/dL (0.2-1.2); Calcium 10.7 mg/dL (8.6-10.8); Globulin 2.7 g/dL (2.4-3.5); Phosphorous 5.3 mg/dL (2.3-4.7); Potassium 3.7 mEq/L (3.5-4.5); Total Protein 4.4 g/dL (6.0-8.3)
[2016-07-26 04:13] LABS: Albumin 1.7 g/dL (3.5-5.0)
[2016-07-26] MEDS: *HR* Heparin 5,000 UNIT/ML VIAL SQ SCH ×2 (05:52→17:32)
--- NOTE | 2016-07-26 11:31 | Discharge Summary ---
Date of Encounter: 07/26/16 Time of Encounter: 11:28 - Discharge Diagnosis (1) Altered mental status Priority: Primary Status: Chronic Qualifiers: Altered mental status type: transient alteration of awareness Qualified Code(s): R40.4 - Transient alteration of awareness (2) Atrial fibrillation Priority: Secondary Status: Chronic Qualifiers: Atrial fibrillation type: persistent Qualified Code(s): I48.1 - Persistent atrial fibrillation (3) Chronic orthostatic hypotension Priority: Secondary Status: Chronic (4) COPD (chronic obstructive pulmonary disease) Priority: Secondary Status: Chronic Qualifiers: COPD type: unspecified COPD Qualified Code(s): J44.9 - Chronic obstructive pulmonary disease, unspecified (5) Dehydration Priority: Primary Status: Resolved (6) Elevated troponin Priority: Secondary Status: Chronic (7) End stage chronic kidney disease Priority: Secondary Status: Chronic (8) Mastoiditis Priority: Primary Status: Acute Qualifiers: Laterality: bilateral Qualified Code(s): H70.93 - Unspecified mastoiditis, bilateral (9) Secondary hyperparathyroidism Priority: Secondary Status: Chronic (10) UTI (urinary tract infection) Priority: Primary Status: Ruled-out Qualifiers: Urinary tract infection type: acute cystitis Hematuria presence: without hematuria Qualified Code(s): N30.00 - Acute cystitis without hematuria - Discharge Medications Prescriptions: Amoxicillin/Clavulanate [Augmentin] 500 mg PO DAILY #4 tablet Home Medications: Allopurinol [Zyloprim 100 MG] 100 mg PO QAM 07/09/16 [History] Aspirin Enteric Coated [Aspirin EC] 81 mg PO QPM 07/09/16 [History] Cinacalcet HCl [Sensipar] 90 mg PO BID 07/09/16 [History] Epoetin Aram [Epogen] 2,000 unit IJ AD 07/09/16 [History] Fludrocortisone Acetate [Florinef] 0.1 mg PO BID 07/09/16 [History] Loratadine [Claritin] 10 mg PO DAILY 07/09/16 [History] Multivitamin [Multi-Day Vitamins] 1 tab PO QPM 07/09/16 [History] Polyethylene Glycol 3350 [Smoothlax] 17 gm PO QAM 07/09/16 [History] Sennosides/Docusate Sodium [Senna Plus] 1 each PO QPM 07/09/16 [History] Sevelamer [Renvela] 800 mg PO TIDWM 07/09/16 [History] Tamsulosin [Flomax] 0.4 mg PO QPM 07/09/16 [History] Atorvastatin [Lipitor] 40 mg PO HS #30 tablet 07/16/16 [Rx] Metoprolol [Lopressor] 25 mg PO BID 60 Days 07/16/16 [Rx] Potassium Chloride 20 meq PO BID 30 Days 07/16/16 [Rx] Midodrine HCl 10 mg PO QID 07/24/16 [History] Amoxicillin/Clavulanate [Augmentin] 500 mg PO DAILY #4 tablet 07/26/16 [Rx] Allergies/Adverse Reactions: Allergies No Known Allergies Allergy (Verified 07/23/16 18:06) Date of admission: 07/24/16 13:34 Primary care physician: Kory Gómez MD Consults: Nephrology: Melchor Cobb Discharging clinician: Nikole Whitfield Anticipated date of discharge: 07/26/16 - Patient Status Disposition: Home Health Service Condition: Fair Functional capacity at discharge: bed bound Overall status at discharge: patient is back to baseline - Discharge Instructions Follow Up With: Kory Gómez MD [Primary Care Provider] - 08/02/16 10:00 am (Pleas follow up as schedule...) Additional Instructions: Please follow up with your primary care physician within five days after your discharge from the hospital. Please follow up with your tubing tester within one week after your discharge from the hospital. Please continue to take oral antibiotics as prescribed. Please resume all your other home medications as prescribed by your primary care physician. Please closely monitor your blood pressure at home. - Diet and Activity Activity: as per physical therapy Diet: advance to your usual diet Hospital course: Mr. 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 As per patient's , patient's mental status waxes and wanes and this time it persistently worsened which prompted his visit to the ER. Patient was treated for symptomatic urinary tract infection and mastoiditis. He responded appropriately to therapy. His mental status continued to wax and wane with intermittent episodes of clarity. At this time patient is only oriented to self and place however as per this appears to be his new baseline. His urine culture finalized with no growth reported. He will be switched to oral antibiotics to complete therapy as outpatient. At this time patient is hemodynamically stable and will be discharged to home with follow-up with his primary care physician. He reports of having continuous home health which will continue after discharge. Patient's demonstrates understanding of patient' s diagnosis and agrees with discharge care plan. - Time Spent with Patient Total time spent providing and/or coordinating discharge services: Less than 30 minutes - Constitutional Vitals: Temp Pulse Resp BP Pulse Ox 98.0 F 102 22 136/75 92 07/26/16 07:54 07/26/16 07:54 07/26/16 07:54 07/26/16 07:54 07/26/16 07:54 General appearance: Present: A&O X 2, pleasant - Head Head exam: Present: atraumatic, normocephalic - Eye Eye exam: Present: normal appearance, conjuntiva pink, sclera anicteric - Respiratory Respiratory exam: Present: CTAB. Absent: accessory muscle use, rales, rhonchi, wheezes - Cardiovascular Cardiovascular exam: Present: RRR, +S1, +S2. Absent: diastolic murmur, gallop, rubs, systolic murmur - GI/Abdominal GI/Abdominal exam: Present: normal bowel sounds, soft, no peritoneal signs. Absent: distended, tenderness - Extremities Exam Extremities exam: Present: warm, radial pulses palpable and symetrical. Absent : calf tenderness, cyanotic, pedal edema - Neurological Exam Neurological exam: Present: alert - Psychiatric Psychiatric exam: Present: normal affect, normal mood
--- NOTE | 2016-07-26 11:41 | Physician Discharge Referral ---
Home Health/Hosp Referral Info Transfer to: Home Health Provider in Charge Post Discharge: PCP - Diagnosis (1) Altered mental status Priority: Primary Status: Chronic (2) Atrial fibrillation Priority: Secondary Status: Chronic (3) Chronic orthostatic hypotension Priority: Secondary Status: Chronic (4) COPD (chronic obstructive pulmonary disease) Priority: Secondary Status: Chronic (5) Dehydration Priority: Primary Status: Resolved (6) Elevated troponin Priority: Secondary Status: Chronic (7) End stage chronic kidney disease Priority: Secondary Status: Chronic (8) Mastoiditis Priority: Primary Status: Acute (9) Secondary hyperparathyroidism Priority: Secondary Status: Chronic (10) UTI (urinary tract infection) Priority: Primary Status: Ruled-out - Respiratory Orders Smoking Cessation: Smoking cessation has been advised. For more information, call the [employer]uit Line at 0-364-RFCJ-NOW. - Services Needed Following services are medically necessary services: Nursing, Home Health Aide, Physical Therapy, Occupational Therapy - Transfer Medications Prescriptions: Amoxicillin/Clavulanate [Augmentin] 500 mg PO DAILY #4 tablet Home Medications: Allopurinol [Zyloprim 100 MG] 100 mg PO QAM 07/09/16 [History] Aspirin Enteric Coated [Aspirin EC] 81 mg PO QPM 07/09/16 [History] Cinacalcet HCl [Sensipar] 90 mg PO BID 07/09/16 [History] Epoetin Aram [Epogen] 2,000 unit IJ AD 07/09/16 [History] Fludrocortisone Acetate [Florinef] 0.1 mg PO BID 07/09/16 [History] Loratadine [Claritin] 10 mg PO DAILY 07/09/16 [History] Multivitamin [Multi-Day Vitamins] 1 tab PO QPM 07/09/16 [History] Polyethylene Glycol 3350 [Smoothlax] 17 gm PO QAM 07/09/16 [History] Sennosides/Docusate Sodium [Senna Plus] 1 each PO QPM 07/09/16 [History] Sevelamer [Renvela] 800 mg PO TIDWM 07/09/16 [History] Tamsulosin [Flomax] 0.4 mg PO QPM 07/09/16 [History] Atorvastatin [Lipitor] 40 mg PO HS #30 tablet 07/16/16 [Rx] Metoprolol [Lopressor] 25 mg PO BID 60 Days 07/16/16 [Rx] Potassium Chloride 20 meq PO BID 30 Days 07/16/16 [Rx] Midodrine HCl 10 mg PO QID 07/24/16 [History] Amoxicillin/Clavulanate [Augmentin] 500 mg PO DAILY #4 tablet 07/26/16 [Rx] Allergies/Adverse Reactions: Allergies No Known Allergies Allergy (Verified 07/23/16 18:06) Certification: Further, I certify that my clinical findings support that this patient is homebound (i.e. absences from home require considerable and taxing effort and are for medical reasons or restoration services or infrequently or short duration when for other reasons) because: Homebound Reason: Patient requires assistance of a person or device to safely leave home Attestation: My signature below is to certify that this patient is under my care and that I, or nurse practitioner, or a physician's players assistant working with me, has a face-to -face encounter with this patient.
[2016-07-26] MEDS ORDERED: Magnesium Oxide 400 MG TABLET PO ONE (11:55)
[2016-07-26 12:20] VITALS: BP 151/79
--- NOTE | 2016-07-26 14:18 | Event Note ---
Date of Encounter: 07/26/16 Time of Encounter: 14:18 I was requested to come into the patient's peritoneal dialysis catheter. Upon inspection the catheter was partially dislodged. The cuff was showing. The cuff was outside of the exit site. There is no evidence of infection or fluid leak. I recommended to the patient is his . The patient go to [facility] to have a new catheter placed. They have seen Dr. Ruiz previously for peritoneal dialysis catheter placement. I am told by the hospitalist at the patient is already been discharged and that therefore according to the hospitalist a hospital to hospital transfer is not possible.
--- NOTE | 2016-07-26 14:48 | Event Note ---
Date of Encounter: 07/26/16 Time of Encounter: 14:45 I was informed that patient's peritoneal dialysis catheter was dislodged. As per Dr Boyer's request transfer to [facility] has been initiated for replacement of dialysis catheter. Patient's transfer is pending placement and acceptance at the facility.
[2016-07-26] MEDS: Aspirin Enteric Coated 81 MG Tablet PO SCH (17:29)
== END 2016-07-26 22:59 | disposition home health service (06) | DRG 682 ==
LOC: EMEROO 17:55 → 2ANU 17:55 → SUATTDRO 07-24 13:34 → 2ANU 07-26 22:36
PROVIDERS: ADMIT Internal Medicine; ATTEND Internal Medicine